=== PATIENT | female | born 1950 | race Caucasian/White ===

== ENCOUNTER 2016-05-06 06:00 | Inpatient (IN) | payer OTHER ==
[~2016-05-06] VITALS: Ht 170.2 cm; Wt 134.7 kg
[2016-05-06] VITALS (11 sets, daily range): BP systolic 113–174; BP diastolic 63–92; PULSE 75–97; TEMP 36.6–36.8; O2SAT 93–100; BMI 45.1
[~2016-05-06 06:00] MED LIST: CHOL100010 PO; CIPR-255 PO; CYAN100020 PO; HMLI SC; INSDGI SC; LOSA50TA54 PO; METF-384 PO; NAPR-1169 PO; SERT-234 PO; VERA1CAP PO
[2016-05-06] MEDS ORDERED: MoRPHine SULFATE 4 MG/ML 1 ML CARP\\VIAL IV STA (06:13)
[2016-05-06] MEDS ORDERED: ONDANSETRON INJ 2 MG/ML 2 ML VIAL IV STA (06:13)
[2016-05-06] MEDS ORDERED: SODIUM CHLORIDE 0.9% 500ML 500 ML IV STA (06:13)
[2016-05-06] MEDS ORDERED: SODIUM CHLORIDE 0.9% 1000ML 1,000 ML IV STA (06:13)
[2016-05-06] MEDS ORDERED: CEFAZOLIN SOD 1000MG/55 ML D5W IV STA (06:13)
[2016-05-06] MEDS ORDERED: DIPHTHERIA/TETANUS/PERTUSSIS 0.5 ML SYR/VIAL IM. ONE (06:15)
[2016-05-06] MEDS ORDERED: FENTANYL CITRATE INJ 50 MCG/1 ML 2 ML VIAL ONE ×4 (06:34→12:30)
[2016-05-06] MEDS ORDERED: FENTANYL CITRATE INJ 50 MCG/1 ML 2 ML VIAL IV STA (06:35)
[2016-05-06 06:38] LABS: BASO % 0.3 %; BASO ABS # 0.02 K/uL (0-0.2); COMPLETE YES; EOS % 0.5 %; HEMATOCRIT 38.5 % (37-47); IG% 0.1 %; LYMPH % 46.1 %; MEAN CELL VOLUME 84.8 fL (80-100); MEAN CORPUSCULAR HEMOGLOBIN 29.7 pg (25-34); MEAN CORPUSCULAR HGB CONC 35.1 g/dl (32-36); MEAN PLATELET VOLUME 10.4 fL (7.4-10.4); MONO % 6.1 %; NEUT % 46.9 %; PLATELET COUNT 253 K/uL (130-400); RED BLOOD COUNT 4.54 M/uL (4.2-5.4); WHITE BLOOD COUNT 7.38 K/uL (4.8-10.8)
--- NOTE | 2016-05-06 06:40 | DIAGNOSTIC IMAGING REPORT ---
ANKLE 2 VIEWS CLINICAL HISTORY: Left ankle pain. Fracture. COMPARISON: None. DISCUSSION: There is a comminuted oblique fracture of the distal fibula. There is lateral dislocation of the talus with respect to the tibia. There is fragmentation of the articular surface of the tibia with a probable fracture involving the posterior malleolus. An oblique fracture through the medial malleolus cannot be excluded. IMPRESSION: Fracture dislocation. Electronically signed by: Peewee Whalen M.D. 05/06/2016 6:38 AM Dictated Date/Time: 05/06/2016 6:36 AM
[2016-05-06 06:53] LABS: ALT/SGPT 26 U/L (12-78); BLOOD UREA NITROGEN 14 mg/dl (7-18); BUN/CREATININE RATIO 13.8 (10-20); CALCIUM 9.1 mg/dl (8.5-10.1); CARBON DIOXIDE 20 mmol/L (21-32); CHLORIDE 108 mmol/L (98-107); GLUCOSE 165 mg/dl (70-99); MAGNESIUM 1.8 mg/dl (1.8-2.4); POTASSIUM 3.8 mmol/L (3.5-5.1); SODIUM 143 mmol/L (136-145)
[2016-05-06] MEDS ORDERED: CHOL1000 PO (06:54)
[2016-05-06 06:56] LABS: ALKALINE PHOSPHATASE 48 U/L (45-117); AST/SGOT 16 U/L (15-37)
[2016-05-06] MEDS ORDERED: PREG1CAP28 PO (06:56)
[2016-05-06] MEDS ORDERED: TRAM-10 PO (06:56)
[2016-05-06] MEDS ORDERED: LORA-741 PO (06:56)
--- NOTE | 2016-05-06 06:56 | EMERGENCY ROOM VISIT NOTE ---
History Report prepared by Jessica: Raji Clay Under the Supervision of: Dr. Dayana Kim M.D. First contact with patient: 05:59 Chief Complaint: ANKLE PAIN Stated Complaint: ANKLE FRACTURE (OPEN) History of Present Illness The patient is a 65 year old female who presents to the Emergency Room with complaints of sudden left ankle pain occurring prior to arrival. She currently rates her discomfort as a 7/10 in severity. The patient states that she was coming across the yard, and she slipped, and her foot got caught under her. The patient denies any head injury or pain in any other location. The patient additionally states that she is diabetic, has hypertension, and she denies taking any aspirin or blood thinners. She states that she ate toast last night around 2100, and she did not eat anything this morning. Source of History: patient Onset: prior to arrival Position: ankle (left) Symptom Intensity: 7/10 Timing: other (sudden) Review of Systems See HPI for pertinent positives & negatives. A total of 10 systems reviewed and were otherwise negative. Past Medical & Surgical Medical Problems: (1) Hydronephrosis (2) Renal colic (3) Ureteral calculus Family History Cancer Diabetes mellitus Heart disease Hypertension Social History Smoking Status: Never Smoker Alcohol Use: none Drug Use: none Marital Status: Occupation Status: employed Current/Historical Medications Scheduled Cholecalciferol (Vitamin D3), 2,000 UNIT PO DAILY Cyanocobalamin (Vitamin B12), 1,000 MCG PO DAILY Estradiol Vaginal (Estrace), 1 APPLN 3XWK Insulin Glargine (Lantus), 20 UNITS SC QAM Insulin Lispro (Human) (Humalog Kwikpen), 5 UNITS SQ QAM Losartan Potassium (Cozaar), 50 MG PO BID Metformin Hcl (Glucophage), 1,000 MG PO BID Multiple Vitamins W/ Minerals (Hair/Skin/Nails), 1 TAB PO DAILY Naproxen (Naprosyn), 500 MG PO BID Pregabalin (Lyrica), 75 MG PO TID Sertraline (Zoloft), 150 MG PO DAILY Verapamil Hcl (Verelan), 240 MG PO BID Scheduled PRN Lorazepam (Ativan), 0.5 MG PO UD PRN for Anxiety Tramadol (Ultram), 50 MG PO Q8H PRN for Pain Allergies Coded Allergies: Terbinafine (Verified Allergy, Unknown, UNKN, 05/06/16) Physical Exam Vital Signs Date Time Temp Pulse Resp B/P Pulse Ox O2 Delivery O2 Flow Rate FiO2 05/06/16 06:52 74 05/06/16 06:04 36.4 73 18 129/64 91 Room Air Physical Exam Vital signs reviewed. General: Generally well-appearing obese female in some discomfort. HEENT: No scleral icterus, PERRLA, neck supple. Atraumatic. Cardiovascular: Regular rate and rhythm, no extra sounds. Pulmonary: Faint scattered wheezes bilaterally, normal work of breathing. Abdomen: Soft, nontender, nondistended, positive bowel sounds. Musculoskeletal: Laceration over the medial aspect of the distal left ankle about 8cm in length with bone protruding. Foot is deviated laterally. Bleeding is controlled. Pulses and sensation are intact distally, and she can wiggle her toes. No peripheral edema. Neurologic: Patient awake alert and oriented x 3, full strength in all 4 extremities. Cranial nerves 2 through 12 grossly intact. Skin: Warm, dry, no rash Medical Decision & Procedures ER Provider Diagnostic Interpretation: X-ray results as stated below per interpretation by me and the radiologist: LEFT TIBIA/FIBULA 2 VIEWS ROUTINE CLINICAL HISTORY: L ankle fracture COMPARISON: Ankle study dated 05/06/2016 DISCUSSION: 2 views left tibia and fibula are provided for interpretation. These do not include the ankle. The patient's distal fibular fracture is partially visualized. The tibiotalar dislocation is not included on the study. No proximal fractures of the tibia or fibula are visualized. IMPRESSION: Partial visualization of the patient's distal fibular fracture. No fractures the proximal tibia or fibula are visualized Electronically signed by: Peewee Whalen M.D. 05/06/2016 6:57 AM Dictated Date/Time: 05/06/2016 6:56 AM CHEST ONE VIEW PORTABLE CLINICAL HISTORY: Preoperative chest COMPARISON STUDY: 03/20/2015 FINDINGS: The heart is within normal limits in size. There is no focal pulmonary consolidation. There are no pleural effusions. There is no overt failure.[ IMPRESSION: AP portable study. No acute findings. Electronically signed by: Peewee Whalen M.D. 05/06/2016 6:52 AM Dictated Date/Time: 05/06/2016 6:52 AM ANKLE 2 VIEWS CLINICAL HISTORY: Left ankle pain. Fracture. COMPARISON: None. DISCUSSION: There is a comminuted oblique fracture of the distal fibula. There is lateral dislocation of the talus with respect to the tibia. There is fragmentation of the articular surface of the tibia with a probable fracture involving the posterior malleolus. An oblique fracture through the medial malleolus cannot be excluded. IMPRESSION: Fracture dislocation. Electronically signed by: Peewee Whalen M.D. 05/06/2016 6:38 AM Dictated Date/Time: 05/06/2016 6:36 AM Laboratory Results 05/06/16 05:20 Red Blood Count 4.54, Mean Corpuscular Volume 84.8, Mean Corpuscular Hemoglobin 29.7, Mean Corpuscular Hemoglobin Concent 35.1, Mean Platelet Volume 10.4, Neutrophils (%) (Auto) 46.9, Lymphocytes (%) (Auto) 46.1, Monocytes (%) (Auto) 6.1, Eosinophils (%) (Auto) 0.5, Basophils (%) (Auto) 0.3, Neutrophils # (Auto) 3.46, Lymphocytes # (Auto) 3.40, Monocytes # (Auto) 0.45, Eosinophils # (Auto) 0.04, Basophils # (Auto) 0.02 05/06/16 05:20 Test 05/06/16 05:20 05/06/16 06:53 White Blood Count 7.38 K/uL (4.8-10.8) Red Blood Count 4.54 M/uL (4.2-5.4) Hemoglobin 13.5 g/dL (12.0-16.0) Hematocrit 38.5 % (37-47) Mean Corpuscular Volume 84.8 fL (80-100) Mean Corpuscular Hemoglobin 29.7 pg (25-34) Mean Corpuscular Hemoglobin Concent 35.1 g/dl (32-36) Platelet Count 253 K/uL (130-400) Mean Platelet Volume 10.4 fL (7.4-10.4) Neutrophils (%) (Auto) 46.9 % Lymphocytes (%) (Auto) 46.1 % Monocytes (%) (Auto) 6.1 % Eosinophils (%) (Auto) 0.5 % Basophils (%) (Auto) 0.3 % Neutrophils # (Auto) 3.46 K/uL (1.4-6.5) Lymphocytes # (Auto) 3.40 K/uL (1.2-3.4) Monocytes # (Auto) 0.45 K/uL (0.11-0.59) Eosinophils # (Auto) 0.04 K/uL (0-0.5) Basophils # (Auto) 0.02 K/uL (0-0.2) RDW Standard Deviation 43.0 fL (36.4-46.3) RDW Coefficient of Variation 14.0 % (11.5-14.5) Immature Granulocyte % (Auto) 0.1 % Immature Granulocyte # (Auto) 0.01 K/uL (0.00-0.02) Anion Gap 15.0 mmol/L (3-11) Est Creatinine Clear Calc Drug Dose 80.0 ml/min Estimated GFR () 69.0 Estimated GFR (Non- 59.5 BUN/Creatinine Ratio 13.8 (10-20) Calcium Level 9.1 mg/dl (8.5-10.1) Magnesium Level 1.8 mg/dl (1.8-2.4) Total Bilirubin 0.5 mg/dl (0.2-1) Direct Bilirubin < 0.1 mg/dl (0-0.2) Aspartate Amino Transf (AST/SGOT) 16 U/L (15-37) Alanine Aminotransferase (ALT/SGPT) 26 U/L (12-78) Alkaline Phosphatase 48 U/L (45-117) Total Protein 6.9 gm/dl (6.4-8.2) Albumin 3.9 gm/dl (3.4-5.0) Bedside Glucose 202 mg/dl (70-90) Laboratory results per my review. Medications Administered Medications (Trade) Dose Ordered Sig/Marni Route Start Time Stop Time Status Last Admin Dose Admin Morphine Sulfate 4 mg 4 mg NOW STAT IV 05/06/16 06:13 05/06/16 06:17 DC 05/06/16 06:13 4 MG Sodium Chloride (Nss 500ml) 500 ml @ 999 mls/hr Q31M STAT IV 05/06/16 06:13 05/06/16 06:43 DC 05/06/16 06:28 999 MLS/HR Cefazolin Sodium (Ancef 1000mg/55 ml D5W) 2,000 mg NOW STAT IV 05/06/16 06:13 05/06/16 06:17 DC 05/06/16 06:24 2,000 MG Ondansetron HCl (Zofran Inj) 4 mg NOW STAT IV 05/06/16 06:13 05/06/16 06:18 DC 05/06/16 06:23 4 MG Diphtheria/ Pertussis/Tetanus Vacc (Adacel Inj) 0.5 ml ONCE ONCE IM. 05/06/16 06:15 05/06/16 06:18 DC 05/06/16 06:25 0.5 ML Fentanyl Citrate (Fentanyl Inj) 50 mcg NOW STAT IV 05/06/16 06:35 05/06/16 06:36 DC 05/06/16 06:41 50 MCG Procedure Procedural Sedation Indication left ankle fracture/dislocation, open Total time: 4923-8245, 16 minutes minutes. Written consent was obtained after the risks and benefits were explained to the patient, including, but not limited to aspiration, allergic reaction, breathing difficulties, cardiac complications, vomiting, pain, event recall, bleeding, and /or infection. Pre-sedation examination and paperwork completed. The patient was on 100% oxygen via NRB prior to the procedure. Continuous end tidal CO2 monitoring, pulse oximetry, and cardiac monitoring were utilized. Suction, airway equipment, medications, respiratory equipment, and appropriate personnel were prepared prior to the initiation of the procedure. A time out was taken. Sedation was achieved utilizing a total of 100 mg of propofol. After I observed the patient had reached the appropriate level of sedation the main procedure was performed without significant complication. The patient did temporarily desaturate but easily recovered with supplemental oxygen. Sedation was discontinued and the monitoring continued. The patient recovered quickly from the effects of the medication and tolerated the procedure well. ECG Indication: other (preop) Rate (beats per minute): 75 Rhythm: normal sinus Findings: T-wave inversion (Inferior), no ectopy Comparison ECG Date: T wave inversion in inferior leads is new when compared to 07/15/15 ED Course 0559: Past medical records reviewed. The patient was evaluated in room B11. A complete history and physical examination was performed. 0613: Zofran Inj 4mg IV, Ancef 1000mg/55 ml D5W 2000mg IV, Sodium Chloride 1000 ml @ 125 mls/hr IV, Sodium Chloride 500 ml @ 999 mls/hr IV, Morphine Sulfate 3mg IV 0615: Adacel Inj .5ml IM 0635: Fentanyl Inj 50 mcg IV 0652: I discussed the patient's case with Dr. Hairston. He is going to evaluate the patient for further treatment Medical Decision Differential diagnosis: fracture, dislocation, neurovascular compromise, compartment syndrome, soft tissue injury, as well as others were entertained. This patient was evaluated and appeared to be in significant discomfort. IV access was obtained by EMS. The patient was medicated with morphine in route. IV fluids were initiated. The patient was medicated with additional IV morphine. X-rays were obtained and reveal an open fracture/dislocation of the left ankle. Patient was medicated with 50 g of fentanyl IV and an attempt at reduction of the ankle was unsuccessful. Xeroform gauze and saline soaked 4 x 4 's were applied over the open wound. A splint was applied. The patient was medicated with 2 g of IV Ancef. Adacel 0.5 mL was administered IM. Orthopedics , Dr. Allen, was consulted. He has requested a medicine evaluation and Dr Brown was notified. Sam Cunningham PA-C evaluated the patient and requested conscious sedation for another attempt at reduction. Please see my procedure note above. The patient will be taken to the OR later today for definitive management. She is aware of the plan and agrees. Consults Time Called: 629 Consulting Physician: Dr. Hairston Returned Call: [phone] I discussed the patient's case with Dr. Hairston. He is going to evaluate the patient for further treatment Impression Primary Impression: Open fracture dislocation of ankle Scribe Attestation The scribe's documentation has been prepared under my direction and personally reviewed by me in its entirety. I confirm that the note above accurately reflects all work, treatment, procedures, and medical decision making performed by me. Departure Information Dispostion Being Evaluated By Hospitalist Nando Chaparro III, CRNP (PCP)
--- NOTE | 2016-05-06 06:59 | DIAGNOSTIC IMAGING REPORT ---
LEFT TIBIA/FIBULA 2 VIEWS ROUTINE CLINICAL HISTORY: L ankle fracture COMPARISON: Ankle study dated 05/06/2016 DISCUSSION: 2 views left tibia and fibula are provided for interpretation. These do not include the ankle. The patient's distal fibular fracture is partially visualized. The tibiotalar dislocation is not included on the study. No proximal fractures of the tibia or fibula are visualized. IMPRESSION: Partial visualization of the patient's distal fibular fracture. No fractures the proximal tibia or fibula are visualized Electronically signed by: Peewee Whalen M.D. 05/06/2016 6:57 AM Dictated Date/Time: 05/06/2016 6:56 AM
[2016-05-06] MEDS ORDERED: INSDGI SC (07:01)
[2016-05-06] MEDS ORDERED: INSU100I2 SQ (07:01)
[2016-05-06] MEDS ORDERED: MULT-580 PO (07:03)
[2016-05-06] MEDS ORDERED: ESTCR (07:03)
[2016-05-06] MEDS ORDERED: PROPOFOL IV EMULSION 10 MG/ML 20 ML VIAL IV STA (07:44)
[2016-05-06] MEDS ORDERED: PROPOFOL IV EMULSION 10 MG/ML 20 ML VIAL IV ONE ×2 (07:45→08:38)
[2016-05-06 07:54] LABS: PARTIAL THROMBOPLASTIN RATIO 0.9; PROTHROMBIN TIME (PATIENT) 10.7 SECONDS (9.0-12.0)
--- NOTE | 2016-05-06 08:20 | DIAGNOSTIC IMAGING REPORT ---
LEFT ANKLE 3 VIEWS HISTORY: Ankle fracture. ankle reduction COMPARISON: Left ankle 05/06/2016. FINDINGS: Overlying splint material obscures fine bony detail. The patient is status post reduction of the left ankle fracture/dislocation. Mildly displaced comminuted distal left fibular fracture is again noted. This demonstrates up to 3 mm of posterior displacement and 3 mm of lateral displacement. Slight widening at the ankle mortise. Posterior malleolus fracture is slightly distracted up to 3 mm. IMPRESSION: Significant improvement in alignment status post reduction of the left ankle fracture/dislocation as described above. There remains mild widening at the ankle mortise. Electronically signed by: Delonte Bean M.D. 05/06/2016 8:18 AM Dictated Date/Time: 05/06/2016 8:16 AM
[2016-05-06] MEDS: SODIUM CHLORIDE 0.9% 1000ML 1,000 ML IV SCH ×2 (08:28→21:28)
[2016-05-06] MEDS ORDERED: ONDANSETRON INJ 2 MG/ML 2 ML VIAL ONE (08:38)
[2016-05-06] MEDS ORDERED: DEXAMETHASONE SOD INJ 4 MG/ML VIAL ONE (08:38)
[2016-05-06] MEDS ORDERED: MIDAZOLAM HCL 1 MG/ML 2ML VIAL ONE ×2 (08:38)
--- NOTE | 2016-05-06 08:58 | History & Physical Bridge Note ---
H&P Re-Evaluation Bridge Note: I have examined the patient, reviewed the History & Physical and in the interval since the performance of the History & Physical I have noted the following changes of clinical significance: No changes noted
--- NOTE | 2016-05-06 09:04 | HISTORY & PHYSICAL EXAMINATION ---
DATE OF ADMISSION: 05/06/2016 REASON FOR ADMISSION: Left open ankle fracture. HISTORY OF PRESENT ILLNESS: The patient is a 65-year-old white female who states that she was walking across her yard earlier this morning to go watch her grandchildren as she normally does daily. She said she avoided the sidewalk because she felt they might be slippery however she lost her balance and slipped in the wet grass and fell onto her left side, actually putting a lot of her weight onto her left ankle. She had immediate pain and deformity and some bleeding noted of her left ankle. She was unable to ambulate and she was brought to [facility] ED. She was seen by the staff. X-rays taken and she obviously had an open fracture of her left ankle at that time. Several attempts were made to give her some pain medication and reduce the ankle by the ER staff which did not occur. It was felt that she would need some conscious sedation which was then provided by the ER physician and the dislocation was then closed reduced. The wound itself was covered with Xeroform and 4 x 4 gauze and a posterior splint with a stirrup was applied to the ankle. She is now being admitted for further orthopedic care. PAST MEDICAL HISTORY: Hypertension, diabetes mellitus. Denies tuberculosis, hepatitis, COPD, rheumatic fever. PAST SURGICAL HISTORY: She has had a closed reduction of her left elbow which was dislocated up in [place]. Otherwise, no other surgeries that she remembers. FAMILY HISTORY: Father and mother both history of CAD diagnosed later in life. SOCIAL HISTORY: The patient is a nonsmoker who does not drink alcohol. She smoked a very long time ago and not for very long. MEDICATIONS: Vitamin D3 2000 units p.o. daily, vitamin B12 1000 mcg p.o. daily, Estrace 1 application 3 times a week, Glargine insulin 20 units subQ in the a.m., lispro insulin 5 units subQ a.m., lorazepam, Ativan 0.5 mg p.o. as directed p.r.n., losartan 50 mg p.o. b.i.d., metformin 1000 mg p.o. b.i.d., multivitamin 1 tab p.o. daily, naproxen 500 mg p.o. b.i.d., Lyrica 75 mg p.o. t.i.d., Zoloft 150 mg p.o. daily, tramadol 50 mg p.o. q. 8 hours p.r.n., verapamil 240 mg p.o. b.i.d. ALLERGIES: TERBINAFINE. REVIEW OF SYSTEMS: The patient denies any history of recent fevers, chills, night sweats, unexplained weight loss or weight gain. No flu or cold-like symptoms. No increased cough or sputum production. No chills or rigors. No chest pain, chest pressure, irregular heartbeat. No shortness of breath on exertion. No hemoptysis. No abdominal pain. No unusual nausea, vomiting, diarrhea. No melena or hematochezia, hematemesis. No hematuria, pyuria or dysuria. Positive history of renal calculi in the past. Denies any gynecological problems in the past as well, although history of being diagnosed with an ovarian cyst. No history of CVA, TIA, seizure disorder. PHYSICAL EXAMINATION: VITAL SIGNS: This morning's vitals at 6:00 were temperature 36.4, pulse 73, respirations 18, BP 129/64, pulse ox 91. GENERAL: The patient is lying in her gurney. She is awake and alert and oriented to person and place. She is in no acute distress, pleasant, cooperative. A splint that has been applied to her left lower extremity and there is a fair amount of bleeding that has been noted on the pillow case that it is underneath her left leg. HEAD, EYES, EARS, NOSE, AND THROAT: Head is normocephalic, atraumatic. There is no scleral icterus or injection. Nasal airway is patent. Oral mucosa is pink and moist. NECK: Soft. HEART: Sinus rhythm without murmurs or gallops. LUNGS: Clear to auscultation. ABDOMEN: Soft, mildly obese and nontender. Bowel sounds are present x4. GENITALIA AND RECTAL: Not performed at this time. EXTREMITIES: Upper extremity exam bilateral shoulders, elbows and wrists are within normal limits and range of motion and nontender on palpation. She has no tenderness on palpation of her neck and has good range of motion with flexion, extension and rotation. She describes a little bit of low back pain at this point of which she attributes to laying so long in the Emergency Room which she has problems with whenever she does lie too long, but does not overtly have back problems normally. She is nontender on palpation at this point in time. On examination of her left lower extremity a splint that had been applied and again she has some bleeding noted from the dressing from the splint that she had on. Once the splint has been removed, it is noted that she has a fracture dislocation that is open of the left ankle, open on the medial aspect with the good portion of the tibia protruding through. There is some stripping of the periosteum on the distal edge of the bone but otherwise has good soft tissue coverage. The open area is approximately 4 cm in length and is not overtly bleeding at this time. She has good sensation in her toes at this time and is able to wiggle her toes of the left foot. Right lower extremity is essentially within normal limits. She is nontender over the right hip, knee and ankle and has good sensation and range of motion. ASSESSMENT: Grade 2 open fracture of the left ankle. PLAN: The patient will need conscious sedation reduction and then brought to the operating room this morning at some point for ORIF and irrigation and debridement. Procedures in the Emergency Room Dr. Kim is present and has provided the patient with conscious sedation. Once appropriate sedation was achieved, I held the ankle and foot in both hands and with longitudinal traction was able to successfully reduce the fracture dislocation of the left ankle. The toes continued to remain pink and warm and had good capillary refill and once the patient was again awake. She has good sensation. At that point in time she had no overt bleeding noted and more Xeroform was applied to the open wound and 2 packs of 4 x 4 gauze were placed over the wound and then a U2 splint was applied to the left ankle successfully. Post-reduction films were taken and noted that the fracture dislocation was now reduced. The patient awoke from conscious sedation and had no complaints and is now awaiting admission. NATALYA
--- NOTE | 2016-05-06 09:13 | Medical Consult ---
Consultation Date of Consultation: May 06, 2016. Attending Physician: Sven Allen M.D. Reason for Consultation: Pre-operative evaluation History of Present Illness This is a 65 y/o female with a history of DM II, neuralgia, HTN, depression and anxiety who presented to the ED on 05/06 with ankle pain following a mechanical fall. The patient was walking in her yard early this morning when she slipped on wet grass and fell on her left ankle. The patient denies any lightheadedness , dizziness, or loss of consciousness. The patient immediately felt severe 10/ 10 sharp pain after the fall. The intense pain made her feel nauseous as well, but she denies any vomiting. The patient was unable to get herself back up. She denies any numbness or tingling in the LLE. The patient received morphine 10 mg IV while en route to the ED. She received a total of 4 mg morphine and 50 mcg fentanyl while in the ED, which did help improve the pain, and she was also given Zofran, which resolved the nausea. X-rays revealed a dislocated, comminuted oblique fracture of the distal fibula. Sam Michael PA-C did reduce and splint the ankle while the patient still in the ED. The patient currently rates her a pain a 9/10 post reduction and states that it is aching in character and does not radiate. The patient denies fevers, chills, sweats, chest pain, palpitations, claudication, cough, wheezing, shortness of breath, vomiting, abdominal pain, dysuria, hematuria, urinary retention, paralysis, numbness and tingling. Past Medical/Surgical History Medical Problems: (1) Open fracture dislocation of ankle Status: Acute Diabetes mellitus type 2 Neuralgia HTN Depression with anxiety Family History Cancer (gastric) Diabetes mellitus Heart disease Hypertension Myocardial infarction Social History Smoking Status: Former Smoker Smokeless Tobacco Use: No Alcohol Use: none Drug Use: none Marital Status: Housing Status: lives alone Occupation Status: retired Allergies Coded Allergies: Terbinafine (Verified Allergy, Unknown, UNKN, 05/06/16) Current Inpatient Medications Current Inpatient Medications Medications (Trade) Dose Ordered Sig/Marni Route Start Time Stop Time Status Last Admin Dose Admin Sodium Chloride (Nss 1000ml) 1,000 ml @ 125 mls/hr Q8H STAT IV 05/06/16 06:13 05/06/16 14:12 05/06/16 06:13 125 MLS/HR Review of Systems See HPI for pertinent positives and negatives. All other systems reviewed and negative. Physical Exam Date Time Temp Pulse Resp B/P Pulse Ox O2 Delivery O2 Flow Rate FiO2 05/06/16 08:07 36.8 79 20 158/92 95 Room Air 05/06/16 07:52 78 16 113/90 97 Room Air 4.0 05/06/16 07:45 36.6 77 20 174/80 98 Nasal Cannula 4.0 05/06/16 06:52 74 05/06/16 06:04 36.4 73 18 129/64 91 Room Air General Appearance: WD/WN, + mild distress, + obese (morbidly obese) Head: normocephalic, atraumatic Eyes: normal inspection, PERRL, EOMI ENT: normal ENT inspection, hearing grossly normal, pharynx normal Neck: supple, no JVD, trachea midline Respiratory/Chest: lungs clear, normal breath sounds, no respiratory distress Cardiovascular: regular rate, rhythm, no gallop, + systolic murmur Abdomen/GI: normal bowel sounds, non tender, soft Extremities/Musculoskelatal: normal capillary refill, + pertinent finding ( distal tibia protruding out of skin, lateral displacement of talus in respect to tibia prior to reduction and splinting. Bleeding controlled.) Neurologic/Psych: alert, normal mood/affect, oriented x 3, + pertinent finding (sensation intact. Pt able to wiggle her left toes) Skin: normal color, warm/dry, no rash Laboratory Results Last 24 Hours Test 05/06/16 05:20 05/06/16 06:53 White Blood Count 7.38 K/uL Red Blood Count 4.54 M/uL Hemoglobin 13.5 g/dL Hematocrit 38.5 % Mean Corpuscular Volume 84.8 fL Mean Corpuscular Hemoglobin 29.7 pg Mean Corpuscular Hemoglobin Concent 35.1 g/dl Platelet Count 253 K/uL Mean Platelet Volume 10.4 fL Neutrophils (%) (Auto) 46.9 % Lymphocytes (%) (Auto) 46.1 % Monocytes (%) (Auto) 6.1 % Eosinophils (%) (Auto) 0.5 % Basophils (%) (Auto) 0.3 % Neutrophils # (Auto) 3.46 K/uL Lymphocytes # (Auto) 3.40 K/uL Monocytes # (Auto) 0.45 K/uL Eosinophils # (Auto) 0.04 K/uL Basophils # (Auto) 0.02 K/uL RDW Standard Deviation 43.0 fL RDW Coefficient of Variation 14.0 % Immature Granulocyte % (Auto) 0.1 % Immature Granulocyte # (Auto) 0.01 K/uL Prothrombin Time 10.7 SECONDS Prothromb Time International Ratio 1.0 Activated Partial Thromboplast Time 23.8 SECONDS Partial Thromboplastin Ratio 0.9 Sodium Level 143 mmol/L Potassium Level 3.8 mmol/L Chloride Level 108 mmol/L Carbon Dioxide Level 20 mmol/L Anion Gap 15.0 mmol/L Blood Urea Nitrogen 14 mg/dl Creatinine 1.00 mg/dl Est Creatinine Clear Calc Drug Dose 80.0 ml/min Estimated GFR () 69.0 Estimated GFR (Non- 59.5 BUN/Creatinine Ratio 13.8 Random Glucose 165 mg/dl Calcium Level 9.1 mg/dl Magnesium Level 1.8 mg/dl Total Bilirubin 0.5 mg/dl Direct Bilirubin < 0.1 mg/dl Aspartate Amino Transf (AST/SGOT) 16 U/L Alanine Aminotransferase (ALT/SGPT) 26 U/L Alkaline Phosphatase 48 U/L Total Protein 6.9 gm/dl Albumin 3.9 gm/dl Bedside Glucose 202 mg/dl Assessment & Plan 65 y/o female with a history of DM II, neuralgia, HTN, depression and anxiety who presented to the ED on 05/06 with ankle pain following a mechanical fall. X- rays reveal comminuted oblique fracture of distal fibula with lateral dislocation of talus with respect to tibia. Distal tibia protruding out of skin. Bleeding controlled. Pt afebrile, VSS. Ankle reduced and splinted in ED , post reduction films show significantly improved alignment of fracture. Patient admitted to med/surg by orthopedics for surgical correction later this morning. Medicine consulted for pre-operative evaluation. -Pain management, DVT prophylaxis, and PT/OT as per primary team -Patient is an acceptable risk for surgery -CXR shows no acute disease -EKG 75 bpm, NSR Diabetes mellitus type 2--last HgbA1c checked 01/30/16 was 6.3. Pt takes 20 units Lantus qam, will reduce to 80% home dose while inpatient due to decreased PO intake prior to arrival and current NPO status -Hold metformin -Lantus 16 units SC qam -Insulin sliding scale -Check BSGs q ac and qhs -Recheck HgbA1c Neuralgia -Continue Lyrica 75 mg PO TID HTN--stable -Hold losartan post-operatively, may resume when renal function is checked again and stable -Continue verapamil 240 mg PO BID -Cover with hydralazine 10 mg IV q6h prn SBP >180 post operatively Depression with anxiety -Continue sertraline 100 mg PO qd Code Status -Level I, FULL RESUSCITATION STATUS Thank you for this consultation. We will continue to follow. Reviewed: Pt Seen/Exam by Me History Pt is having pain post-op and waiting on medication for this. She is hungry having not eaten since last night. No SOB, chest pain, n/v. Agree with HPI/ROS as noted. General Appearance: no apparent distress, obese Respiratory: normal breath sounds, no respiratory distress Cardiovascular: normal peripheral pulses, regular rate, rhythm Gastrointestinal: non tender, soft Extremities: non-tender, no pedal edema Neurologic/Psychiatric: alert, oriented x 3 Skin Characteristics: normal color, warm/dry Assessment/Plan Agree with plan as outlined above Pt is s/p OR earlier today for an ankle fx 2/2 mechanical fall
[2016-05-06] MEDS ORDERED: DEXTROSE 50% 50 ML SYR IV PRN (09:15)
[2016-05-06] MEDS ORDERED: GLUCOSE 40% GEL 15 GM TUBE PO PRN (09:15)
[2016-05-06] MEDS ORDERED: GLUCAGON FOR INJ 1 MG VIAL SQ PRN (09:15)
[2016-05-06] MEDS ORDERED: HydrALAZINE HCL 20 MG/ML VIAL IV. PRN (09:15)
[2016-05-06] MEDS ORDERED: GLUCOSE 10 TABS/TUBE PO PRN (09:15)
[2016-05-06] MEDS ORDERED: ONDANSETRON INJ 2 MG/ML 2 ML VIAL IV PRN (09:30)
[2016-05-06] MEDS ORDERED: EpHEDrine SULFATE INJ 50 MG/ML AMP IV PRN (09:30)
[2016-05-06] MEDS ORDERED: MoRPHine SULFATE 10 MG/ML CARP/VIAL IV PRN (09:30)
[2016-05-06] MEDS ORDERED: FENTANYL CITRATE INJ 50 MCG/1 ML 2 ML VIAL IV PRN (09:30)
[2016-05-06] MEDS ORDERED: ATROPINE SULFATE 0.1 MG/ML 5ML SYR IV PRN (09:30)
[2016-05-06] MEDS ORDERED: CEFAZOLIN IV 2,000 MG/60 ML D5W IV ONE (09:37)
[2016-05-06] MEDS ORDERED: INSULIN ASPART 100 UNITS/ML 3 ML PEN SC SCH (11:00)
[2016-05-06 11:02] LABS: ESTIMATED AVERAGE GLUCOSE 146 mg/dl; HA1C FLAG Normal (Normal)
[2016-05-06] MEDS ORDERED: BETADINE 5% TOP ONE (12:13)
[2016-05-06] MEDS ORDERED: [UNRECOGNIZED DRUG - OTHER] TOP ONE (12:13)
[2016-05-06] MEDS ORDERED: BACITRACIN 50,000 UNITS IR ONE (12:15)
--- NOTE | 2016-05-06 12:35 | [facility] Operative Report ---
Operative Report Operative Date May 06, 2016. Pre-Operative Diagnosis Grade 2-3 open fracture dilocation lateral and posterior malleolus of left ankle Post-Operative Diagnosis same Procedure(s) Performed orif left fibula irrigation and debridement open dislocation with repair wound over drain repair deltoid ligament and posterior tibial tendon retinaculum Surgeon Dr. Sven Allen Director Of Supply Chain Surgeon(s) Alfredo Sandhu PA-C Estimated Blood Loss 15ml Findings ABOVE Specimens none per surgeon Dr. Sven Allen Drains one paul Anesthesia general Complication(s) None Disposition Recovery Room / PACU Indications open dislocation unstable fracture I attest to the content of the Intraoperative Record and any orders documented therein. Any exceptions are noted below.
[2016-05-06] MEDS ORDERED: BISACODYL 10 MG SUPP PR PRN (13:15)
[2016-05-06] MEDS ORDERED: ESTRACE VAG CREAM 0.01% 42.5 GM PV SCH (13:15)
[2016-05-06] MEDS ORDERED: ZOLPIDEM TARTRATE 5 MG TAB PO PRN (13:15)
[2016-05-06] MEDS ORDERED: MoRPHine SULFATE 2 MG/ML CARP IV PRN (13:15)
[2016-05-06] MEDS ORDERED: MAGNESIUM HYDROXIDE SUSP 30 ML UDC PO PRN (13:15)
[2016-05-06] MEDS ORDERED: LORAZEPAM 0.5 MG TAB PO PRN (13:15)
[2016-05-06] MEDS ORDERED: SOD PHOSPHATE/SOD BIPHOSPHATE ENEMA 132 ML BTL PR PRN (13:15)
--- NOTE | 2016-05-06 13:21 | Anesthesiology Progress Note ---
Anesthesia Post Op Note Date & Time May 06, 2016 at 13:20 Vital Signs Vital Signs Past 12 Hours Date Time Temp Pulse Resp B/P Pulse Ox O2 Delivery O2 Flow Rate FiO2 05/06/16 08:32 68 20 161/82 97 05/06/16 08:07 36.8 79 20 158/92 95 Room Air 05/06/16 07:52 78 16 113/90 97 Room Air 4.0 05/06/16 07:52 78 16 113/90 99 Nasal Cannula 4.0 05/06/16 07:45 36.6 77 20 174/80 98 Nasal Cannula 4.0 05/06/16 06:52 74 05/06/16 06:04 36.4 73 18 129/64 91 Room Air Notes Mental Status: alert / awake / arousable, participated in evaluation Pt Amnestic to Procedure: Yes Nausea / Vomiting: adequately controlled Pain: adequately controlled Airway Patency, RR, SpO2: stable & adequate BP & HR: stable & adequate Hydration State: stable & adequate Anesthetic Complications: no major complications apparent
--- NOTE | 2016-05-06 14:47 | DIAGNOSTIC IMAGING REPORT ---
Left ankle 2 views CLINICAL HISTORY: Left ankle fracture. Reduction and internal fixation. COMPARISON STUDY: Left ankle 05/06/2016. FINDINGS: Total fluoroscopy time was 17 seconds. 3 fluoroscopic spot images submitted. Lateral cortical plate transfixed with screws bridging the distal fibular fracture. The hardware appears intact. The alignment is near-anatomic. IMPRESSION: Fluoroscopy provided for open reduction and internal fixation of a left ankle fracture. Electronically signed by: Delonte Bean M.D. 05/06/2016 2:45 PM Dictated Date/Time: 05/06/2016 2:44 PM
[2016-05-06] MEDS: MoRPHine SULFATE 4 MG/ML 1 ML CARP\\VIAL IV PRN ×3 (15:10→19:57)
[2016-05-06] MEDS: PREGABALIN 75 MG CAP PO SCH ×2 (15:10→21:23)
[2016-05-06] MEDS: POTASSIUM CHLORIDE INJ 10 MEQ in SODIUM CHLORIDE 0.9% 1000ML 1,000 ML IV SCH (15:36)
[2016-05-06] MEDS: CEFAZOLIN IV 2,000 MG in DEXTROSE 5% 50ML 50 ML IV SCH ×2 (15:37→21:24)
[2016-05-06] MEDS: ACETAMINOPHEN 500 MG TAB PO SCH ×2 (15:42→21:25)
[2016-05-06] MEDS: OXYCODONE HCL IR 5 MG TAB (IMMEDIATE RELEASE) PO PRN ×2 (15:51→19:52)
[2016-05-06] MEDS: INSULIN ASPART 100 UNITS/ML 3 ML PEN SC SCH ×2 (18:37→21:00)
[2016-05-06] MEDS: VERAPAMIL HCL 240 MG TABCR PO SCH (21:23)
[2016-05-06] MEDS: OXYCODONE HCL 10 MG TABCR (OXYCONTIN) PO SCH (21:23)
[2016-05-06] MEDS: ASPIRIN 81 MG ECTAB PO SCH (21:24)
[2016-05-06] MEDS: LOSARTAN POTASSIUM 50 MG TAB PO SCH (21:24)
[2016-05-07] VITALS (8 sets, daily range): BP systolic 116–146; BP diastolic 68–80; PULSE 79–120; TEMP 36.6–37.2; O2SAT 84–97
[2016-05-07] MEDS: MoRPHine SULFATE 4 MG/ML 1 ML CARP\\VIAL IV PRN ×4 (00:34→19:30)
--- NOTE | 2016-05-07 01:28 | OPERATIVE REPORT ---
DATE OF OPERATION: 05/06/2016 INDICATION FOR PROCEDURE: The patient is a 65-year-old female who slipped on the ice and sustained a fracture dislocation of her left ankle. She had a large laceration over the medial ankle transversely at the time of her presentation. The tibia was exposed via the open injury. She had a comminuted fibula fracture, clearly a dislocation laterally, and also had posterior malleolus fracture, but no clear medial malleolus fracture. In ER, closed reduction was performed after the wound was irrigated, which demonstrated her medial malleolus to be intact and a small relatively extraarticular posterior malleolus fracture and a very comminuted fibular fracture. PREOPERATIVE DIAGNOSIS: Left ankle fracture and dislocation with a comminuted fibula fracture and extraarticular posterior malleolus fracture and an open dislocation medially. POSTOPERATIVE DIAGNOSIS: Same including a deltoid ligament disruption and posterior tibial retinacular disruption with intact posterior tibial tendon, with comminuted fibular fracture and smaller extraarticular posterior malleolus fracture. PROCEDURE: Open reduction and internal fixation of the fibula fracture with lag screw and locking plate fixation with irrigation and debridement of medial open dislocation of the ankle joint with subsequent repair of the deltoid ligament and posterior tibial tendon and retinaculum, closure of the medial open laceration over a Samreen drain. SURGEON: Dr. Allen. VP PRODUCT MANAGEMENT: Alfredo Sandhu PA-C. ANESTHESIA: General. OPERATIVE PROCEDURE: The patient was taken to the operating room, anesthetized under general anesthetic. Pneumatic tourniquet was placed about her obese upper thigh. A sandbag was placed under her hip to keep her leg rotated in neutral. Her left lower extremity was then scrubbed with Betadine scrub and paint prep. Leg was then elevated, exsanguinated with Esmarch bandage, pneumatic tourniquet was raised to 350 mmHg. Attention was first taken to the medial wound which was measured at 8.5 cm laceration. This was irrigated copiously. With some eversion of the ankle, the tibia was easily translated into the open wound and one could see the medial malleolus clearly intact and solid with the tibial plafond. There was a little scuffing of the joint surface but no major chondral lesions. Deltoid was clearly ruptured at the medial capsule and the tear extended posteriorly into the posterior tibial tendon and retinaculum, but posterior tibial tendon was intact, saphenous vein was intact. The joint surface, ankle joint, medial tibia, deltoid ligament, subcutaneous tissue and skin were all irrigated copiously. We used a total of 5 liters of antibiotic solution with bacitracin. The wound was contaminated but clean in appearance. Then, attention was taken to the fibula fixation. A longitudinal incision was made over the fibular fracture. Skin was incised sharply. The subcutaneous tissues were reflected off the fibula and the fracture was comminuted with a fragmented butterfly fragment posterior, the butterfly fragment was in 2 fragments. There was a distal lateral malleolus fragment spiral fracture and then the shaft proximally. After irrigation of this again with antibiotic solution and bacitracin, we freed up some of the periosteum off the fracture site to fully visualize the spike of the fractures and to reduce these anatomically. I used several bone holding clamps to integrate the butterfly fragments into the posterior fibula, gained appropriate lengths and placed the spiral fracture together with clamps and then verified anatomic reduction and the ankle to be out to length and the mortise to be lined up satisfactorily on fluoroscopy and then went ahead and lagged the long spiral shaft fracture to the distal lateral malleolus with a 3.5 Synthes cortical screw from anterior to posterior, superior to inferior. After that was lagged, then we went ahead and lagged the shaft to the butterfly fragment posteriorly with a second screw. I then placed a long 7-hole Synthes locking plate and this was contoured to match the anatomy of the fibula and that was placed at the appropriate position and initially lagged with a cortical screw to the shaft and then multiple locking screws were placed into the lateral malleolus and locking screws placed proximally with anatomic fixation of the fibula with bringing this out to length anatomically and the mortise reduced anatomically. The x-rays were taken in AP and lateral views and the posterior malleolus fracture was felt to be extraarticular for the most part and we will treat this with splinting and casting. The medial wound was then irrigated and then I repaired the deltoid ligament with interrupted [id number] #1 Vicryl sutures and repaired the retinaculum was similar interrupted #1 Vicryl sutures. Then, the Samreen drain was placed into the medial wound and then interrupted 4-0 nylon vertical mattress suture was used to close the medial wound. 2-0 Vicryl was used to close deep fascia and subcutaneous tissues laterally and the skin was closed with interrupted 3-0 nylon vertical mattress sutures of nylon. Then, sterile dressings were applied and a sterile Webril and posterior and sugar tong splint was placed to keep the ankle in neutral position and Iblly wraps were placed holding this in place until the plaster splints had hardened. Tourniquet was let down prior to the splinting. The patient had good capillary refill back to the extremity. The patient had minimal blood loss and tolerated the procedure well. Alfredo Sandhu PA-C, was my assistant administrator. He functioned as assistant administrator for the entire procedure. He assisted in patient positioning, assisted in soft tissue retraction, leg positioning during the reduction and fixation. He assisted in the closure of subcutaneous and skin and dressings, splint application, and will participate in postop care of the patient. I attest to the content of the Intraoperative Record and any orders documented therein. Any exceptio ns are noted below.
[2016-05-07] MEDS: POTASSIUM CHLORIDE INJ 10 MEQ in SODIUM CHLORIDE 0.9% 1000ML 1,000 ML IV SCH ×3 (01:50→21:39)
[2016-05-07] MEDS: ACETAMINOPHEN 500 MG TAB PO SCH ×3 (05:27→21:39)
[2016-05-07] MEDS: CEFAZOLIN IV 2,000 MG in DEXTROSE 5% 50ML 50 ML IV SCH ×3 (05:27→21:39)
[2016-05-07] MEDS ORDERED: CEFAZOLIN IV 2,000 MG in DEXTROSE 5% 50ML 50 ML IV SCH (06:00)
[2016-05-07 06:29] LABS: BUN/CREATININE RATIO 12.1 (10-20); CALCIUM 7.9 mg/dl (8.5-10.1); CREATININE 1.2 mg/dl (0.60-1.20); POTASSIUM 4.4 mmol/L (3.5-5.1)
[2016-05-07 06:41] LABS: HEMATOCRIT 31.5 % (37-47); MEAN CELL VOLUME 89.5 fL (80-100); MEAN CORPUSCULAR HEMOGLOBIN 30.1 pg (25-34); MEAN CORPUSCULAR HGB CONC 33.7 g/dl (32-36); PLATELET COUNT 181 K/uL (130-400); RED BLOOD COUNT 3.52 M/uL (4.2-5.4); WHITE BLOOD COUNT 8.16 K/uL (4.8-10.8)
--- NOTE | 2016-05-07 07:50 | Orthopedic Progress Note ---
Orthopedic Progress Note Date of Service May 07, 2016. Subjective Post OP Day: 1 Reports: feeling well, pain controlled w PO medications, Denies: SOB, calf pain , chest pain, complaints, light headedness, nausea / vomiting Objective calves soft nontender, N/V intact, splint C/D/I, capillary refill less than 2 sec., dressing C/D/I, A&O x3, toes mobile Date Time Temp Pulse Resp B/P Pulse Ox O2 Delivery O2 Flow Rate FiO2 05/07/16 07:37 37.2 92 18 124/79 95 Nasal Cannula 2.0 05/07/16 05:20 107 96 Nasal Cannula 2.0 05/07/16 05:19 120 84 Room Air 05/07/16 04:22 36.6 96 16 146/71 94 Room Air 05/07/16 00:15 Room Air 05/06/16 23:52 36.8 97 18 143/76 93 Room Air 05/06/16 19:22 36.6 82 18 115/63 98 Nasal Cannula 2.0 05/06/16 17:26 36.8 82 17 136/65 94 Nasal Cannula 2.0 05/06/16 15:48 36.8 77 17 138/71 98 Nasal Cannula 2.0 05/06/16 15:45 Nasal Cannula 2.0 05/06/16 15:34 97 Nasal Cannula 2.0 05/06/16 15:23 36.8 77 18 129/75 97 Nasal Cannula 2.0 05/06/16 15:17 Nasal Cannula 2.0 05/06/16 15:08 36.6 75 17 125/74 100 Nasal Cannula 4.0 05/06/16 14:10 36.2 80 16 114/69 96 Nasal Cannula 4 05/06/16 14:00 36.2 80 16 123/89 96 Nasal Cannula 4 05/06/16 13:50 36.2 81 16 112/61 96 Nasal Cannula 4 05/06/16 13:40 36.2 82 16 120/75 96 Nasal Cannula 4 05/06/16 13:30 80 16 126/67 96 Nasal Cannula 4 05/06/16 13:20 80 16 128/71 96 Mask 10 05/06/16 13:10 81 16 122/76 95 Mask 10 05/06/16 13:01 36.6 86 16 136/73 98 Mask 10 05/06/16 08:32 68 20 161/82 97 05/06/16 08:07 36.8 79 20 158/92 95 Room Air 05/06/16 07:52 78 16 113/90 97 Room Air 4.0 05/06/16 07:52 78 16 113/90 99 Nasal Cannula 4.0 Laboratory Results 24 Hours: Test 05/07/16 05:29 Hematocrit 31.5 % Hemoglobin 10.6 g/dL Assessment & Plan Assessment: POD #1, Left ankle ORIF distal fibula, I&D medial open wound with drain, repair medial deltoid ligament. Plan: PT- NWB DVT proph- ASA D/C plans Home PER [facility]Edicine. IV antibx for 48 hrs Inhouse Planning Pain Management: Oxycontin, Morphine, PO Tylenol, Oxy IR DVT Prophylaxis: TEDs, SCDs, ASA Discharge Planning Discharge Planning: home Pain Management: Oxycontin, PO Tylenol, Oxy IR DVT Prophylaxis: TEDs
[2016-05-07] MEDS: OXYCODONE HCL 10 MG TABCR (OXYCONTIN) PO SCH ×2 (08:54→21:16)
[2016-05-07] MEDS: OXYCODONE HCL IR 5 MG TAB (IMMEDIATE RELEASE) PO PRN (08:54)
[2016-05-07] MEDS: PREGABALIN 75 MG CAP PO SCH ×3 (08:54→21:16)
[2016-05-07] MEDS: LOSARTAN POTASSIUM 50 MG TAB PO SCH ×2 (08:55→21:17)
[2016-05-07] MEDS: ASPIRIN 81 MG ECTAB PO SCH ×2 (08:55→21:16)
[2016-05-07] MEDS: CHOLECALCIFEROL 1000 INTER.UNIT TAB PO SCH (08:55)
[2016-05-07] MEDS: VERAPAMIL HCL 240 MG TABCR PO SCH ×2 (08:55→21:16)
[2016-05-07] MEDS: SERTRALINE HCL 100 MG TAB PO SCH (08:56)
[2016-05-07] MEDS: MULTIVITAMIN TAB PO SCH (08:56)
[2016-05-07] MEDS: CYANOCOBALAMIN 500 MCG TAB (VIT B-12) PO SCH (08:56)
[2016-05-07] MEDS: CEROVITE ADV FORMULA TAB PO SCH (08:56)
[2016-05-07] MEDS: PANTOprazole SOD 40 MG TAB PO SCH (08:56)
[2016-05-07] MEDS: INSULIN ASPART 100 UNITS/ML 3 ML PEN SC SCH ×4 (09:02→21:00)
[2016-05-07] MEDS: INSULIN GLARGINE SOLOSTAR 100 UNITS/ML 3 ML PEN SC SCH (09:03)
--- NOTE | 2016-05-07 10:33 | Anesthesiology Progress Note ---
Anesthesia Post Op Note Date & Time May 07, 2016 at 10:32 Vital Signs Pain Intensity: 8.0 Vital Signs Past 12 Hours Date Time Temp Pulse Resp B/P Pulse Ox O2 Delivery O2 Flow Rate FiO2 05/07/16 07:50 Room Air 05/07/16 07:37 37.2 92 18 124/79 95 Nasal Cannula 2.0 05/07/16 05:20 107 96 Nasal Cannula 2.0 05/07/16 05:19 120 84 Room Air 05/07/16 04:22 36.6 96 16 146/71 94 Room Air 05/07/16 00:15 Room Air 05/06/16 23:52 36.8 97 18 143/76 93 Room Air Notes Mental Status: alert / awake / arousable, participated in evaluation Pt Amnestic to Procedure: Yes Nausea / Vomiting: adequately controlled Pain: adequately controlled Airway Patency, RR, SpO2: stable & adequate BP & HR: stable & adequate Hydration State: stable & adequate Anesthetic Complications: no major complications apparent
[2016-05-07] MEDS: SODIUM CHLORIDE 0.9% 1000ML 1,000 ML IV SCH (11:08)
[2016-05-07] MEDS ORDERED: NURSING VERBAL MED ORDER ONE (11:15)
[2016-05-07] MEDS: ONDANSETRON INJ 2 MG/ML 2 ML VIAL IV PRN ×2 (12:26→17:22)
--- NOTE | 2016-05-07 16:48 | Progress Note ---
Subjective Date of Service: May 07, 2016. Subjective Pt evaluation today including: conversation w/ patient, conversation w/ family Pt is doing better today. Pain to ankle is present but manageable. Eating without issue. No SOB or chest pain. Pt denies fever, abd pain, n/v/c/d, LE pain. ROS as noted above, otherwise neg. Problem List Medical Problems: (1) Open fracture dislocation of ankle Status: Acute Objective Vital Signs Date Time Temp Pulse Resp B/P Pulse Ox O2 Delivery O2 Flow Rate FiO2 05/07/16 15:10 36.7 79 18 119/75 92 Nasal Cannula 2.0 05/07/16 11:00 36.6 79 17 124/68 92 Room Air 05/07/16 07:50 Room Air 05/07/16 07:37 37.2 92 18 124/79 95 Nasal Cannula 2.0 05/07/16 05:20 107 96 Nasal Cannula 2.0 05/07/16 05:19 120 84 Room Air 05/07/16 04:22 36.6 96 16 146/71 94 Room Air 05/07/16 00:15 Room Air 05/06/16 23:52 36.8 97 18 143/76 93 Room Air 05/06/16 19:22 36.6 82 18 115/63 98 Nasal Cannula 2.0 05/06/16 17:26 36.8 82 17 136/65 94 Nasal Cannula 2.0 Physical Exam General Appearance: no apparent distress, + obese Respiratory/Chest: normal breath sounds, no respiratory distress Cardiovascular: regular rate, rhythm, no edema Abdomen: non tender, soft Extremities: no pedal edema, + pertinent finding (clean and dry around bandages ) Neurologic/Psychiatric: alert, oriented x 3 Skin: normal color, warm/dry Laboratory Results Last 24 Hours Test 05/06/16 17:03 05/06/16 20:52 05/07/16 05:29 05/07/16 08:03 Bedside Glucose 151 mg/dl 124 mg/dl 156 mg/dl White Blood Count 8.16 K/uL Red Blood Count 3.52 M/uL Hemoglobin 10.6 g/dL Hematocrit 31.5 % Mean Corpuscular Volume 89.5 fL Mean Corpuscular Hemoglobin 30.1 pg Mean Corpuscular Hemoglobin Concent 33.7 g/dl RDW Standard Deviation 47.9 fL RDW Coefficient of Variation 14.7 % Platelet Count 181 K/uL Mean Platelet Volume 10.0 fL Sodium Level 143 mmol/L Potassium Level 4.4 mmol/L Chloride Level 108 mmol/L Carbon Dioxide Level 25 mmol/L Anion Gap 10.0 mmol/L Blood Urea Nitrogen 15 mg/dl Creatinine 1.20 mg/dl Est Creatinine Clear Calc Drug Dose 66.7 ml/min Estimated GFR () 55.3 Estimated GFR (Non- 47.7 BUN/Creatinine Ratio 12.1 Random Glucose 166 mg/dl Calcium Level 7.9 mg/dl Test 05/07/16 11:03 Bedside Glucose 131 mg/dl Assessment and Plan 65 y/o female with a history of DM II, neuralgia, HTN, depression and anxiety who presented to the ED on 05/06 with ankle pain following a mechanical fall. X- rays reveal comminuted oblique fracture of distal fibula with lateral dislocation of talus with respect to tibia. Distal tibia protruding out of skin. Bleeding controlled. Pt afebrile, VSS. Ankle reduced and splinted in ED , post reduction films show significantly improved alignment of fracture. Patient admitted to med/surg by orthopedics for surgical correction later this morning. Medicine consulted for pre-operative evaluation. -Pain management, DVT prophylaxis, and PT/OT as per primary team -Patient is an acceptable risk for surgery -CXR shows no acute disease -EKG 75 bpm, NSR Ortho planning for IV abx x48 hrs Diabetes mellitus type 2--last HgbA1c checked 01/30/16 was 6.3. Pt takes 20 units Lantus qam, will reduce to 80% home dose while inpatient due to decreased PO intake prior to arrival and current NPO status -Hold metformin -Lantus 16 units SC qam -Insulin sliding scale -Check BSGs q ac and qhs -Recheck HgbA1c Neuralgia -Continue Lyrica 75 mg PO TID HTN--stable -Hold losartan post-operatively, may resume when renal function is checked again and stable -Continue verapamil 240 mg PO BID -Cover with hydralazine 10 mg IV q6h prn SBP >180 post operatively Depression with anxiety -Continue sertraline 100 mg PO qd Code Status -Level I, FULL RESUSCITATION STATUS
[2016-05-08] VITALS (7 sets, daily range): BP systolic 94–137; BP diastolic 57–82; PULSE 74–91; TEMP 36.6–36.9; O2SAT 55–97
[2016-05-08] MEDS: OXYCODONE HCL IR 5 MG TAB (IMMEDIATE RELEASE) PO PRN (00:11)
[2016-05-08] MEDS: CEFAZOLIN IV 2,000 MG in DEXTROSE 5% 50ML 50 ML IV SCH (05:54)
[2016-05-08] MEDS: ACETAMINOPHEN 500 MG TAB PO SCH ×3 (05:55→22:25)
[2016-05-08] MEDS: POTASSIUM CHLORIDE INJ 10 MEQ in SODIUM CHLORIDE 0.9% 1000ML 1,000 ML IV SCH (06:17)
[2016-05-08 06:55] LABS: HEMATOCRIT 29.6 % (37-47); MEAN CELL VOLUME 89.2 fL (80-100); MEAN CORPUSCULAR HEMOGLOBIN 30.4 pg (25-34); MEAN CORPUSCULAR HGB CONC 34.1 g/dl (32-36); MEAN PLATELET VOLUME 10.1 fL (7.4-10.4); PLATELET COUNT 163 K/uL (130-400); RED BLOOD COUNT 3.32 M/uL (4.2-5.4); WHITE BLOOD COUNT 8.47 K/uL (4.8-10.8)
[2016-05-08 07:32] LABS: BUN/CREATININE RATIO 12.8 (10-20); CALCIUM 8.6 mg/dl (8.5-10.1); CREATININE 1.2 mg/dl (0.60-1.20); POTASSIUM 4.4 mmol/L (3.5-5.1)
[2016-05-08] MEDS ORDERED: NURSING VERBAL MED ORDER ONE (08:00)
[2016-05-08] MEDS: PANTOprazole SOD 40 MG TAB PO SCH (08:58)
[2016-05-08] MEDS: CHOLECALCIFEROL 1000 INTER.UNIT TAB PO SCH (08:58)
[2016-05-08] MEDS: CYANOCOBALAMIN 500 MCG TAB (VIT B-12) PO SCH (08:58)
[2016-05-08] MEDS: VERAPAMIL HCL 240 MG TABCR PO SCH ×2 (08:58→22:21)
[2016-05-08] MEDS: SERTRALINE HCL 100 MG TAB PO SCH (08:58)
[2016-05-08] MEDS: ASPIRIN 81 MG ECTAB PO SCH ×2 (08:58→22:21)
[2016-05-08] MEDS: CEROVITE ADV FORMULA TAB PO SCH (08:58)
[2016-05-08] MEDS: LOSARTAN POTASSIUM 50 MG TAB PO SCH ×2 (08:59→22:21)
[2016-05-08] MEDS: MULTIVITAMIN TAB PO SCH (08:59)
--- NOTE | 2016-05-08 09:02 | Orthopedic Progress Note ---
Orthopedic Progress Note Date of Service May 08, 2016. Subjective Post OP Day: 2 Reports: feeling well, pain controlled w PO medications, Denies: SOB, calf pain , chest pain, complaints, light headedness, nausea / vomiting Additional Notes: Feels as though the oxycodone is making her a bit dizzy and out of sorts. Objective calves soft nontender, N/V intact, capillary refill less than 2 sec., incision C /D/I, A&O x3, toes mobile Dressing changed and drain pulled today by me. NO erythema, minimal drainage. Incisions look well. Date Time Temp Pulse Resp B/P Pulse Ox O2 Delivery O2 Flow Rate FiO2 05/08/16 07:45 36.6 91 18 137/82 91 Room Air 05/08/16 00:00 Nasal Cannula 05/07/16 22:35 36.8 85 19 116/80 97 Nasal Cannula 2.0 05/07/16 16:15 93 Nasal Cannula 2.0 05/07/16 15:10 36.7 79 18 119/75 92 Nasal Cannula 2.0 05/07/16 11:00 36.6 79 17 124/68 92 Room Air Laboratory Results 24 Hours: Test 05/08/16 06:35 Hematocrit 29.6 % Hemoglobin 10.1 g/dL Assessment & Plan Assessment: POD #2, Left ankle ORIF distal fibula, I&D medial open wound with drain, repair medial deltoid ligament. Plan: PT- NWB DVT proph- ASA D/C plans Home today after PT if stable ambulating and ok w medicine- O2 sats. PER [facility]. IV antibx for 48 hrs Inhouse Planning Pain Management: Ultram, PO Tylenol DVT Prophylaxis: TEDs, SCDs, ASA Discharge Planning Discharge Planning: home Pain Management: Ultram DVT Prophylaxis: TEDs
[2016-05-08] MEDS ORDERED: ASPEC81 PO (09:03)
[2016-05-08] MEDS ORDERED: ULT50X PO (09:03)
[2016-05-08] MEDS: INSULIN ASPART 100 UNITS/ML 3 ML PEN SC SCH ×4 (09:05→22:13)
[2016-05-08] MEDS: INSULIN GLARGINE SOLOSTAR 100 UNITS/ML 3 ML PEN SC SCH (09:06)
[2016-05-08] MEDS: PREGABALIN 75 MG CAP PO SCH ×3 (09:06→22:14)
--- NOTE | 2016-05-08 09:08 | Discharge Instructions ---
Discharge Instructions Admission Reason for Admission: Open Fracture Dislocation Of Ankle Discharge Discharge Diagnosis / Problem: Left ankle ORIG, I&D open frature Discharge Goals Goal(s): Improve function Activity Recommendations Activity Limitations: as noted below Weightbearing Status: Left non-weightbearing (with walker) . Instructions / Follow-Up Instructions / Follow-Up NON weight bearing Left leg with walker Ice/ elevate as needed Keep dressings/ splints clean, dry and in tact, DO NOT remove. Tramadol as needed. Follow up with Dr. Allen next week, call [phone] to make appt. Current Hospital Diet Patient's current hospital diet: Diabetes Type 2 Diet Discharge Diet Recommended Diet: Diabetes Type 2 Diet Procedures Procedures Performed: Open Reduction Internal Fixation Left Ankle; Irrigation & Debridement; Open Ankle Dislocation; Closure of Deltoid Ligament Repair Pending Studies Studies pending at discharge: no Laboratory Results Hemoglobin A1c Test 05/06/16 05:20 Range/Units Estimated Average Glucose 146 mg/dl Hemoglobin A1c 6.7 H 4.5-5.6 % Medical Emergencies . Who to Call and When: Medical Emergencies: If at any time you feel your situation is an emergency, please call 911 immediately. . Non-Emergent Contact Non-Emergency issues call your: Primary Care Provider . "Provider Documentation" section prepared by Alfredo Sandhu. VTE Core Measure Inpt VTE Proph given/why not?: Other Anticoagulation (asa), SCD's
--- NOTE | 2016-05-08 12:06 | Hospitalist Progress Note ---
Hospitalist Progress Note Date of Service May 08, 2016. (Sharla Thompson ., DELL) 05/08/16 agree with pa note c/o SOB, hypoxic (Luís Ray MD) Subjective Pt evaluation today including: conversation w/ patient, physical exam, chart review, lab review, review of studies, conversation w/ mental hygiene consultant, review of inpatient medication list PO Intake: Tolerating PO diet, decreased appetite Voiding: no voiding problems The patient states that she was nauseous throughout the day yesterday, but that it would resolve with Zofran. She denies any vomiting but does report decreased appetite. She also states that the oxycodone seems to make her feel a bit "loopy and out of it". The patient has been able to ambulate to the bathroom with assistance and is voiding without difficulty, although when she gets up to ambulate her O2 saturations drop to the mid 80s, or even as low as 77 % early this morning on room air. Her sats improve quickly once she sits back down. The patient reports passing gas but denies any bowel movements. The patient denies fevers, chills, sweats, chest pain, palpitations, claudication, cough, wheezing, shortness of breath, vomiting, abdominal pain, dysuria, hematuria, urinary retention, paralysis, numbness and tingling. Additional Comments: See HPI for pertinent positives and negatives. All other systems reviewed and negative. (Sharla Thompson ., DELL) Pt evaluation today including: conversation w/ patient, physical exam, chart review, review of studies, review of inpatient medication list Constitutional: No fever ENT: No hearing loss Respiratory: + dyspnea on exertion, + shortness of breath, No cough Cardiovascular: No chest pain Abdomen: No pain Female : No dysuria Neurologic: No memory loss Psychiatric: No depression symptoms (Luís Ray MD) Objective Vital Signs Date Time Temp Pulse Resp B/P Pulse Ox O2 Delivery O2 Flow Rate FiO2 05/08/16 07:45 36.6 91 18 137/82 91 Room Air 05/08/16 07:15 Room Air 05/08/16 00:00 Nasal Cannula 05/07/16 22:35 36.8 85 19 116/80 97 Nasal Cannula 2.0 05/07/16 16:15 93 Nasal Cannula 2.0 05/07/16 15:10 36.7 79 18 119/75 92 Nasal Cannula 2.0 (Sharla Thompson PA-C) Physical Exam General Appearance: WD/WN, no apparent distress, + obese (morbidly obese) Eyes: normal inspection, PERRL, EOMI ENT: normal ENT inspection, hearing grossly normal, pharynx normal Neck: supple, no JVD, trachea midline Respiratory/Chest: lungs clear, normal breath sounds, no respiratory distress Cardiovascular: regular rate, rhythm, no gallop, no murmur Abdomen: normal bowel sounds, non tender, soft Extremities: no pedal edema, no calf tenderness, normal capillary refill, + pertinent finding (left ankle incisions look clean and non-erythematous. Drain removed by Alfredo Sandhu PA-C and redressed) Neurologic/Psychiatric: alert, normal mood/affect, oriented x 3 Skin: normal color, warm/dry, no rash (Sharla Thompson PA-C) General Appearance: WD/WN, + mild distress Eyes: normal inspection ENT: hearing grossly normal Neck: supple Respiratory/Chest: chest non-tender, + decreased breath sounds Cardiovascular: regular rate, rhythm, no gallop Abdomen: normal bowel sounds, soft Extremities: normal range of motion, normal inspection Neurologic/Psychiatric: alert Skin: normal color (Luís Ray MD) Laboratory Results Last 24 Hours Test 05/07/16 17:02 05/07/16 20:49 05/08/16 06:35 05/08/16 08:24 Bedside Glucose 163 mg/dl 129 mg/dl 159 mg/dl 159 mg/dl White Blood Count 8.47 K/uL Red Blood Count 3.32 M/uL Hemoglobin 10.1 g/dL Hematocrit 29.6 % Mean Corpuscular Volume 89.2 fL Mean Corpuscular Hemoglobin 30.4 pg Mean Corpuscular Hemoglobin Concent 34.1 g/dl RDW Standard Deviation 47.4 fL RDW Coefficient of Variation 14.5 % Platelet Count 163 K/uL Mean Platelet Volume 10.1 fL Sodium Level 140 mmol/L Potassium Level 4.4 mmol/L Chloride Level 107 mmol/L Carbon Dioxide Level 24 mmol/L Anion Gap 9.0 mmol/L Blood Urea Nitrogen 15 mg/dl Creatinine 1.20 mg/dl Est Creatinine Clear Calc Drug Dose 66.7 ml/min Estimated GFR () 55.3 Estimated GFR (Non- 47.7 BUN/Creatinine Ratio 12.8 Random Glucose 165 mg/dl Calcium Level 8.6 mg/dl (Sharla Thompson .DELL) Assessment and Plan 65 y/o female with a history of DM II, neuralgia, HTN, depression and anxiety who presented to the ED on 05/06 with ankle pain following a mechanical fall. X- rays reveal comminuted oblique fracture of distal fibula with lateral dislocation of talus with respect to tibia. Distal tibia protruding out of skin. Bleeding controlled. Pt afebrile, VSS. Ankle reduced and splinted in ED , post reduction films show significantly improved alignment of fracture. Patient admitted to med/surg by orthopedics for surgical correction later this morning. Medicine consulted for pre-operative evaluation. -Pain management, DVT prophylaxis, and PT/OT as per primary team -Patient is an acceptable risk for surgery -CXR shows no acute disease -EKG 75 bpm, NSR Diabetes mellitus type 2--last HgbA1c checked 01/30/16 was 6.3. Pt takes 20 units Lantus qam, will reduce to 80% home dose while inpatient due to decreased PO intake prior to arrival and current NPO status -Hold metformin -Lantus 16 units SC qam -Insulin sliding scale -Check BSGs q ac and qhs -Rechecked HgbA1c 05/06 was 6.7 Neuralgia -Continue Lyrica 75 mg PO TID HTN--stable -Resume losartan 50 mg PO BID -Continue verapamil 240 mg PO BID Depression with anxiety -Continue sertraline 100 mg PO qd Code Status -Level I, FULL RESUSCITATION STATUS Thank you for this consultation. We will continue to follow. Dispo -Pt now agreeable to acute rehab as she will have difficulty navigating her home with a walker. Referral sent to [facility], pt accepted. [facility] is able to perform 2-step to determine need for home oxygen. -Pt. is stable from a medical standpoint, we will sign off. Clear for discharge as per primary team. (Sharla Thompson ., LISAC) 65 y/o female with a history of DM II, neuralgia, HTN, depression and anxiety who presented to the ED on 05/06 with ankle pain following a mechanical fall. X- rays reveal comminuted oblique fracture of distal fibula with lateral dislocation of talus with respect to tibia. Distal tibia protruding out of skin. Bleeding controlled. Pt afebrile, VSS. Ankle reduced and splinted in ED , post reduction films show significantly improved alignment of fracture. Patient admitted to med/surg by orthopedics for surgical correction. Medicine consulted for pre-operative evaluation. distal tibia fx s/p surgical correction Pain management, DVT prophylaxis, and PT/OT as per primary team CXR shows no acute disease EKG 75 bpm, NSR SOB: likely pulm edema, however cant rule out infectious/inflammatory process, malignancy on CT scan chest (reviewed). stopped IVF, given IV lasix, consult pulm, start empiric IV cefepime Diabetes mellitus type 2--last HgbA1c checked 01/30/16 was 6.3. Pt takes 20 units Lantus qam, will reduce to 80% home dose while inpatient due to decreased PO intake prior to arrival and current NPO status -Hold metformin -Lantus 16 units SC qam -Insulin sliding scale -Check BSGs q ac and qhs -Rechecked HgbA1c 05/06 was 6.7 Neuralgia -Continue Lyrica 75 mg PO TID HTN--stable -Resume losartan 50 mg PO BID -Continue verapamil 240 mg PO BID Depression with anxiety -Continue sertraline 100 mg PO qd Code Status -Level I, FULL RESUSCITATION STATUS Dispo -Pt now agreeable to acute rehab as she will have difficulty navigating her home with a walker. Referral sent to [facility], pt accepted. [facility] is able to perform 2-step to determine need for home oxygen. However will await for pulm input before patient is ready for d/c (Luís Ray MD)
[2016-05-08] MEDS: TRAMADOL HCL 50 MG TAB PO PRN (12:22)
--- NOTE | 2016-05-08 13:39 | Discharge Instructions ---
Discharge Instructions Admission Reason for Admission: Open Fracture Dislocation Of Ankle Discharge Discharge Diagnosis / Problem: Open Fracture Left Ankle Discharge Goals Goal(s): Decrease discomfort, Improve function Activity Recommendations Activity Level: Assistance Required Therapies: Physical Therapy (gati training), Occupational Therapy (ADL's / transfers) Weightbearing Status: Left non-weightbearing . Additional Information Patient informed of condition: Yes Advance Directives: No DNR: No Level of Care: Acute Rehab Communicable Disease: No Prognosis: Stable [place] Catheter: No Instructions / Follow-Up Instructions / Follow-Up Keep dressing and splint clean and dry. Do not put any weight on the left foot/ankle. Crutches or walker for ambulation. Keep foot elevated on at least 2 pillows when at rest to help with swelling. Follow up with Dr Allen next week. Call for appointment. [phone] Current Hospital Diet Patient's current hospital diet: Diabetes Type 2 Diet Discharge Diet Recommended Diet: Diabetes Type 2 Diet Procedures Procedures Performed: Open Reduction Internal Fixation Left Ankle; Irrigation & Debridement; Open Ankle Dislocation; Closure of Deltoid Ligament Repair Pending Studies Studies pending at discharge: no Physician Orders On Transfer Vital Signs: routine Additional Orders: 2 step Oxygen protocol; BSG ac/hs Laboratory Results Hemoglobin A1c Test 05/06/16 05:20 Range/Units Estimated Average Glucose 146 mg/dl Hemoglobin A1c 6.7 H 4.5-5.6 % Medical Emergencies . Who to Call and When: Medical Emergencies: If at any time you feel your situation is an emergency, please call 911 immediately. . Non-Emergent Contact Non-Emergency issues call your: Surgeon Call Non-Emergent contact if: temperature is above 101.5, your pain is not controlled, your pain is worsening, wound has increased drainage, wound has increased redness . . "Provider Documentation" section prepared by Sam Michael. Core Measure Problem Core Measures: None
[2016-05-08] MEDS ORDERED: OPTIRAY 320 IV PRN (16:45)
--- NOTE | 2016-05-08 17:31 | DIAGNOSTIC IMAGING REPORT ---
CHEST CTA for PULMONARY ARTERIES CT DOSE: 712.82 mGy.cm HISTORY: Atypical chest pain. TECHNIQUE: Multiaxial CT images of the chest were performed following the intravenous administration of contrast to evaluate the pulmonary arteries. Maximal intensity projection images were also obtained. COMPARISON STUDY: Chest CTA 07/15/2015. FINDINGS: Respiratory motion resulting in suboptimal evaluation of the distal ulnar arteries. Specifically, the segmental pulmonary arteries of the right upper lobe and subsegmental pulmonary arteries of the right lower lobe are essentially nondiagnostic. However, the remaining pulmonary arteries show no evidence for pulmonary embolus. The heart is stable in size. No evidence for an aortic dissection. No pleural or pericardial effusions. There is abnormal soft tissue encasing the right mainstem bronchus/bronchus intermedius. This measures up to 8 mm in thickness posteriorly. There is also abnormal soft tissue within the right hilum. Subcarinal soft tissue/lymphadenopathy measures up to 2 cm in thickness. This has developed in the interval. Right paratracheal lymphadenopathy has also developed in the interval. The dominant lymph node measures 11 mm in short axis diameter. Stable 3 cm left thyroid nodule. No left hilar lymphadenopathy. Limited views of the upper abdomen demonstrate fatty changes within the liver and a normal spleen. The visualized adrenal glands are unremarkable. No suspicious lytic or blastic osseous lesions. No pneumothorax. The central airways are patent. Diffuse interlobular septal thickening. Patchy ground glass density within the right upper lobe. IMPRESSION: 1. Diffuse interlobular septal thickening and a few patchy ground glass densities within the right upper lobe. This may represent developing pulmonary edema or an atypical interstitial process. 2. Interval development of abnormal soft tissue surrounding the right mainstem bronchus/bronchus intermedius and extending into the right hilum and subcarinal locations. There are few enlarged right peritracheal lymph nodes. This could be reactive to the pulmonary edema/interstitial process. However, a neoplastic process such as lymphoma or a primary bronchogenic malignancy could also have a similar appearance. Bronchoscopy should be performed for further evaluation. At a minimum, one month chest CT follow-up can also be performed to ensure resolution of these findings. 3. No evidence for pulmonary embolus with limitations as described above. 4. No change in the 3 cm left lower pole thyroid nodule. Electronically signed by: Delonte Bean M.D. 05/08/2016 5:29 PM Dictated Date/Time: 05/08/2016 5:20 PM
[2016-05-08 17:55] LABS: ARTERIAL BLD GAS O2 SATURATION 82.6 % (90-95); ARTERIAL BLOOD GAS BASE EXCESS -1.9 mEq/L (-9-1.8); ARTERIAL BLOOD GAS HCO3 24 mmol/L (19-24); ARTERIAL BLOOD GAS PO2 49 mm/Hg (80-95); ARTERIAL BLOOD GAS pH 7.32 (7.35-7.45)
--- NOTE | 2016-05-08 17:56 | DIAGNOSTIC IMAGING REPORT ---
CHEST ONE VIEW PORTABLE HISTORY: Short of breath. Congestive heart failure. COMPARISON: Chest 05/06/2016. FINDINGS: Diffuse interstitial and vascular thickening consistent with mild pulmonary edema. This has progressed. The heart is mildly enlarged. No pneumothorax. No pleural effusions. IMPRESSION: Interval development of mild interstitial edema. Electronically signed by: Delonte Bean M.D. 05/08/2016 5:54 PM Dictated Date/Time: 05/08/2016 5:54 PM
[2016-05-08] MEDS ORDERED: FUROSEMIDE 40 MG/4 ML VIAL IV STA (18:15)
[2016-05-08] MEDS ORDERED: FUROSEMIDE INJ 40 MG in SYRINGE 0 ML IV ONE (18:30)
[2016-05-08 18:46] LABS: ALLEN TEST POS (POS); O2 ADMINISTRATION ROOM AIR
[2016-05-08] MEDS: CEFEPIME IV 2,000 MG in DEXTROSE 5% 100ML 100 ML IV SCH (18:58)
[2016-05-08] MEDS ORDERED: VANCOMYCIN INJ 1,000 MG in SODIUM CHLORIDE 0.9% 250ML 250 ML IV STA (22:26)
[2016-05-08] MEDS ORDERED: VANCOMYCIN INJ 2,800 MG in SODIUM CHLORIDE 0.9% 500ML 500 ML IV SCH (23:00)
[2016-05-08 23:08] LABS: ISTAT ALLEN TEST Pass; ISTAT ARTERIAL BLOOD GAS HCO3 24 meq/L (19-24); ISTAT ARTERIAL BLOOD GAS PCO2 48 mmHg (35-46); ISTAT ARTERIAL BLOOD GAS PO2 72 mmHg (80-95); ISTAT ARTERIAL BLOOD GAS pH 7.31 (7.35-7.45); ISTAT CARBON DIOXIDE 26 mEq/l (24-31); ISTAT DELIVERY SYSTEM Cannula; ISTAT SITE L Radial
[2016-05-09] VITALS (9 sets, daily range): BP systolic 106–136; BP diastolic 53–77; PULSE 72–92; TEMP 36.5–36.9; O2SAT 88–96
[2016-05-09] MEDS: CEFEPIME IV 2,000 MG in DEXTROSE 5% 100ML 100 ML IV SCH ×3 (03:00→20:07)
[2016-05-09] MEDS ORDERED: VANCOMYCIN CONSULT ACTIVE PRN (03:15)
[2016-05-09] MEDS: ACETAMINOPHEN 500 MG TAB PO SCH ×3 (06:19→21:49)
[2016-05-09 06:28] LABS: HEMATOCRIT 27.8 % (37-47); MEAN CORPUSCULAR HEMOGLOBIN 30.1 pg (25-34); MEAN CORPUSCULAR HGB CONC 33.5 g/dl (32-36); MEAN PLATELET VOLUME 10.5 fL (7.4-10.4); PLATELET COUNT 153 K/uL (130-400); RED BLOOD COUNT 3.09 M/uL (4.2-5.4); WHITE BLOOD COUNT 6.36 K/uL (4.8-10.8)
[2016-05-09] MEDS: CHOLECALCIFEROL 1000 INTER.UNIT TAB PO SCH (08:05)
[2016-05-09] MEDS: PREGABALIN 75 MG CAP PO SCH ×3 (08:05→21:44)
[2016-05-09] MEDS: PANTOprazole SOD 40 MG TAB PO SCH (08:05)
[2016-05-09] MEDS: SERTRALINE HCL 100 MG TAB PO SCH (08:05)
[2016-05-09] MEDS: VERAPAMIL HCL 240 MG TABCR PO SCH ×2 (08:05→21:46)
[2016-05-09] MEDS: CYANOCOBALAMIN 500 MCG TAB (VIT B-12) PO SCH (08:05)
[2016-05-09] MEDS: CEROVITE ADV FORMULA TAB PO SCH (08:06)
[2016-05-09] MEDS: LOSARTAN POTASSIUM 50 MG TAB PO SCH ×2 (08:06→21:47)
[2016-05-09] MEDS: ASPIRIN 81 MG ECTAB PO SCH ×2 (08:06→21:45)
[2016-05-09] MEDS: MULTIVITAMIN TAB PO SCH (08:06)
[2016-05-09] MEDS: INSULIN GLARGINE SOLOSTAR 100 UNITS/ML 3 ML PEN SC SCH (08:07)
[2016-05-09 08:16] LABS: BASO % 0.4 %; BASO ABS # 0.02 K/uL (0-0.2); EOS % 0.7 %; HEMATOCRIT 27.4 % (37-47); IG% 0.4 %; LYMPH % 16.1 %; MEAN CORPUSCULAR HEMOGLOBIN 29.9 pg (25-34); MEAN PLATELET VOLUME 10.1 fL (7.4-10.4); MONO % 8.9 %; NEUT % 73.5 %; PLATELET COUNT 142 K/uL (130-400); RED BLOOD COUNT 3.01 M/uL (4.2-5.4)
[2016-05-09 08:27] LABS: COMPLETE YES; MEAN CORPUSCULAR HGB CONC 32.8 g/dl (32-36)
[2016-05-09 09:10] LABS: ALB/GLOB RATIO 0.9 (0.9-2); BUN/CREATININE RATIO 13.6 (10-20); CALCIUM 8.3 mg/dl (8.5-10.1); CREATININE 1.1 mg/dl (0.60-1.20); POTASSIUM 4.5 mmol/L (3.5-5.1)
[2016-05-09] MEDS: INSULIN ASPART 100 UNITS/ML 3 ML PEN SC SCH ×4 (09:42→21:49)
--- NOTE | 2016-05-09 11:32 | PULMONARY CONSULTATION ---
DATE OF CONSULTATION: 05/09/2016 TIME: 8:50 a.m. PRIMARY CARE PHYSICIAN: INOCENTE Yanez. HISTORY OF PRESENT ILLNESS: The patient was seen in room 201. She is a 65-year-old female who is being seen because of severe hypoxia and respiratory failure. The patient was in her usual state of reasonably good health until the morning of May 06. She fell on some wet grass. She suffered an open fracture of the left ankle area. She was brought to the Emergency Room. They tried to do a closed reduction to at least reduce the fracture and then subsequently she had an open reduction later in the day. She had been progressing and near ready for discharge to go to [facility]. She was found to have a significant decrease in her oxygen saturations, as low as 77%, which was noted on May 08. The patient herself has not been complaining of any shortness of breath. She denies any cough or sputum production or hemoptysis. She did not have chest pains. Her discharge was canceled. She was subsequently moved down to second floor PCU. She did have blood gases done last evening that were significantly abnormal. At 5:40 p.m. yesterday, the arterial pH was 7.32 with a pCO2 of 48 and a pO2 of 49 done on room air. Late last evening, she had a repeat blood gas on a nasal cannula nonspecified amount, showing a pH of 7.31 with a pCO2 of 48 and a pO2 of 72. The fact that her pH is abnormal, would suggest she has an acute respiratory acidosis. The patient denies having had any lung trouble in the past. She specifically denies asthma, tuberculosis, pneumonia, pleurisy or emphysema. Because of her hypoxia, she underwent a CT angio of the chest last evening. The study was somewhat limited but there was no definite evidence of pulmonary emboli. There was some diffuse interlobular septal thickening with a few patchy ground-glass densities in the right upper lobe. However, there was a new development compared with the prior CAT scan done on 07/15/2015. The recent CAT scan from yesterday showed abnormal soft tissue surrounding the right main stem bronchus and bronchus intermedius and extending into the right hilum and subcarinal regions. There are a few enlarged paratracheal lymph nodes. This is a very unusual finding. It does not look exactly typical for mediastinal mass but that cannot be excluded. The patient denies having had any change in her status over the past few months other than fatigue. She has not had chills, fevers or night sweats. She has had no weight loss. She has had no change in her appetite. She has noticed that she is more sleepy over the past several months. She is sleepy during the day. Her energy level has been lower. The patient states that when she goes to bed at about 10:00 p.m., she can fall asleep fairly readily as long as she reads a while. She is getting up in the morning about 4:30 because she goes to assist with the care of her 8-year-old granddaughter. She gets her ready for school and apparently takes her to school and then picks her up later in the day. She naps most mornings between 10:00 a.m. and 12:00 noon. She is also tired the rest of the day. The patient lives alone and she does not know if she snores. Thus, there has been no observed apnea. She typically has just 1 awakening during the nighttime and goes back to sleep readily. PAST SURGICAL HISTORY: 1. Tonsillectomy age 12. 2. Left elbow dislocation, apparently treated with a closed reduction. PAST MEDICAL HISTORY: 1. Hypertension. 2. Diabetes. 3. Renal calculi in 2016. 4. Anxiety. 5. Depression. 6. Childbirth x1 7. Ovarian cyst. SOCIAL HISTORY: The patient has not smoked since her 30s. She estimates that she smoked between 10 and 15 years and probably between 1/2 and 3/4 pack per day. Alcohol use is none. ALLERGIES: TERBINAFINE. SHE DOES NOT RECALL WHAT THE REACTION WAS. FAMILY HISTORY: Positive for coronary artery disease in both parents. MEDICATIONS: At home: 1. Aspirin 81 mg b.i.d. 2. Vitamin D3 daily. 3. Vitamin B12 daily. 4. Estrace 3 times per week. 5. Lantus insulin 20 units subQ in the morning. 6. Humalog 5 units in the morning. 7. Lorazepam 0.5 p.r.n. 8. Losartan 50 mg b.i.d. 9. Metformin 1000 mg b.i.d. 10. Naproxen 500 mg b.i.d. 11. Lyrica 75 mg t.i.d. 12. Sertraline 100 mg daily. 13. Tramadol 50-100 mg p.r.n. pain. 14. Verapamil 240 mg b.i.d. REVIEW OF SYSTEMS: GENERAL: The patient's energy level has been very low for the last 6 months or so. NEUROLOGIC: Denies syncope or near syncope. OPHTHALMIC: No visual complaints. ENT: She has some chronic nasal congestion. CARDIAC: No chest pain or palpitations. PULMONARY: Essentially no symptoms as noted above. GASTROINTESTINAL: Apparently has some constipation, but otherwise no symptoms. No trouble swallowing. GENITOURINARY: Denies complaints. MUSCULOSKELETAL: Obviously she is having the pain currently related to her ankle surgery. DERMATOLOGIC: No rash. ENDOCRINE: No lymphadenopathy. PHYSICAL EXAMINATION: VITAL SIGNS: The patient is a 65-year-old female who was cooperative, alert and oriented. She appeared in no distress. She is obese. BMI is 47.2 kg/m2. Weight is 136.7 kilograms. HEENT: Pupils were reactive to light. Nares were mildly congested. Mouth exam showed a Mallampati grade 3 pharynx. NECK: She has a large neck. No lymph nodes are palpable. CHEST: Of normal expansion and development. Heart rate is 72 per minute. Rhythm is regular. Blood pressure 136/63. Respiratory rate is 20 breaths per minute. Lung fisher were clear bilaterally but the breath sounds are decreased. This may be related to obesity. Oxygen saturation was 95% on 5 liters. ABDOMEN: Obese. Bowel sounds were present and were normal. There was no tenderness to palpation, masses or organomegaly. EXTREMITIES: Showed that the left leg has had surgery and is immobilized. There was no cyanosis, clubbing or edema. LABORATORY DATA: White count is 5.6. Hemoglobin 9.0. Hematocrit 27.4. Even on admission, her hemoglobin was down to 10.6 with hematocrit of 31.5. Platelets today are 142,000. Differential count showed 73.5 neutrophils, 16.1 lymphs, 8.9 monocytes, 0.7 eos, 0.4 basophils. Coags were normal. Sodium most recently was 140, potassium 4.4, chloride 107, and bicarb 24. BUN yesterday was 15 and the creatinine was 1.2. AST was 16, ALT was 26, and alk phos was 48. These were all within the limits of normal. Troponin was negative done this morning. Total protein is 6.9 and albumin was 3.9. Original x-ray of the ankle shows distal fibular fracture which is comminuted oblique. There was fragmentation of the articular surface of the tibia. IMPRESSIONS: 1. Acute respiratory failure with hypoxia and hypercarbia. 2. Obesity hypoventilation syndrome. 3. Obstructive sleep apnea. 4. Mediastinal adenopathy of uncertain origin. 5. Anemia. COMMENTS: The patient is totally asymptomatic, yet she has abnormal blood gases. Some of this is acute, based upon the acidity assessed by the pH. I believe thyroid function should be checked. I believe we should treat her with BiPAP at night. We will order it today during the day for a while to help her adapt to it. She will need a sleep study. She ultimately will need a followup CAT scan of the chest. She is not a candidate for bronchoscopy at present. I believe it would be reasonable to wait a month or two and do a repeat CAT scan with intention of reviewing the mediastinum and right hilum and subcarinal regions. I would be happy to follow her as an outpatient and assist with getting the sleep study done. Thank you very much for asking me to assist in her care.
--- NOTE | 2016-05-09 12:22 | Progress Note ---
Subjective Subjective Date of Service: May 09, 2016. Pt evaluation today including: conversation w/ patient, physical exam, chart review, lab review, review of studies, conversation w/ benefits consultant (cinthia), review of inpatient medication list Notes: hypoxic and hypercarbic overnight, transferred to telemetry Problem List Medical Problems: (1) Open fracture dislocation of ankle Status: Acute Review of Systems Constitutional: No fever ENT: No hearing loss Respiratory: No cough Abdomen: No pain Female : No dysuria Neurologic: No memory loss Psychiatric: No depression symptoms Endo: No fatigue Physical Exam Vital Signs Vital Signs Past 24 Hours: Date Time Temp Pulse Resp B/P Pulse Ox O2 Delivery O2 Flow Rate FiO2 05/09/16 11:52 36.9 75 18 120/69 88 BiPAP 4.0 05/09/16 09:37 79 96 2.0 05/09/16 08:00 Nasal Cannula 2.0 05/09/16 07:49 36.9 73 20 136/63 95 5.0 05/09/16 04:15 Nasal Cannula 05/09/16 03:56 36.5 72 18 106/53 94 Nasal Cannula 5.0 05/09/16 00:30 Nasal Cannula 05/08/16 23:48 36.8 78 20 133/70 96 Nasal Cannula 5.0 05/08/16 23:00 36.8 74 16 92 5.0 05/08/16 22:33 122/73 05/08/16 22:25 74 10 94/62 89 Nasal Cannula 5.0 05/08/16 16:11 92 Nasal Cannula 4.0 05/08/16 16:10 55 Room Air 05/08/16 16:10 36.9 88 10 126/57 55 Room Air 05/08/16 14:49 36.8 85 18 112/63 97 Room Air Physical Exam: General Appearance: WD/WN, no apparent distress, + obese Eyes: bilateral eyes normal inspection ENT: hearing grossly normal Neck: supple Respiratory/Chest: + decreased breath sounds Cardiovascular: no edema Abdomen: non tender Extremities: non-tender, + pertinent finding (left leg cast is present) Neurologic/Psychiatric: alert Skin: normal color Medications Medications: Current Inpatient Medications Medications (Trade) Dose Ordered Sig/Marni Route Start Time Stop Time Status Last Admin Dose Admin Pregabalin (Lyrica Cap) 75 mg TID PO 05/06/16 14:00 06/05/16 13:59 05/09/16 08:05 75 MG Sertraline HCl (Zoloft Tab) 100 mg DAILY PO 05/07/16 09:00 06/06/16 08:59 05/09/16 08:05 100 MG Verapamil HCl (Calan-Sr Tab) 240 mg BID PO 05/06/16 21:00 06/05/16 20:59 05/09/16 08:05 240 MG Insulin Glargine (Lantus Solostar Pen) 16 unit QAM SC 05/07/16 09:00 06/06/16 08:59 05/09/16 08:07 16 UNIT Glucose (Glucose 40% Gel) 15-30 GRAMS 15 GRAMS... UD PRN PO 05/06/16 09:15 06/05/16 09:14 Glucose (Glucose Chew Tab) 4-8 Tablets 4 Tabl... UD PRN PO 05/06/16 09:15 06/05/16 09:14 Dextrose (Dextrose 50% 50ML Syringe) 25-50ML OF 50% DW IV FOR... UD PRN IV 05/06/16 09:15 06/05/16 09:14 Glucagon (Glucagon Inj) 1 mg UD PRN SQ 05/06/16 09:15 06/05/16 09:14 Hydralazine HCl (HydrALAZINE INJ) 10 mg Q6H PRN IV. 05/06/16 09:15 06/05/16 09:14 Cholecalciferol (Vitamin D Tab) 1,000 inter.unit DAILY PO 05/07/16 09:00 06/06/16 08:59 05/09/16 08:05 1,000 INTER.UNIT Losartan Potassium (coZAAR TAB) 50 mg BID PO 05/06/16 21:00 06/05/16 20:59 05/09/16 08:06 50 MG Multivitamins/ Minerals (Multivitamin W/ Minerals Tab) 1 tab DAILY PO 05/07/16 09:00 06/06/16 08:59 05/09/16 08:06 1 TAB Cyanocobalamin (Vitamin B-12 Tab) 1,000 mcg DAILY PO 05/07/16 09:00 06/06/16 08:59 05/09/16 08:05 1,000 MCG Estradiol (Estrace Vag Cream 0.01% 42.5 Gm) 1 appln [id number] PV 05/06/16 13:15 06/05/16 13:14 Acetaminophen (Tylenol Tab) 1,000 mg Q8 PO 05/06/16 14:00 06/05/16 13:59 05/09/16 06:19 1,000 MG Magnesium Hydroxide (Milk Of Magnesia Susp) 30 ml Q6H PRN PO 05/06/16 13:15 06/05/16 13:14 Bisacodyl (Dulcolax Supp) 10 mg DAILY PRN SC 05/06/16 13:15 06/05/16 13:14 Sodium Biphosphate/ Sodium Phosphate (Fleet Enema) 132 ml DAILY PRN SC 05/06/16 13:15 06/05/16 13:14 Diphenhydramine HCl (Benadryl Cap) 25 mg Q8H PRN PO 05/06/16 13:15 06/05/16 13:14 Multivitamins (Multivitamin Tab) 1 tab QAM PO 05/07/16 09:00 06/06/16 08:59 05/09/16 08:06 1 TAB Ondansetron HCl (Zofran Inj) 4 mg Q6H PRN IV 05/06/16 13:15 06/05/16 13:14 05/07/16 17:22 4 MG Pantoprazole Sodium (Protonix Tab) 40 mg QAM PO 05/07/16 09:00 06/06/16 08:59 05/09/16 08:05 40 MG Aspirin (Ecotrin Tab) 81 mg BID PO 05/06/16 21:00 06/05/16 20:59 05/09/16 08:06 81 MG Insulin Aspart (novoLOG ASPART) SLIDING SCALE G... ACHS SC 05/06/16 16:00 06/05/16 15:59 05/09/16 09:42 3 UNITS Tramadol HCl (Ultram Tab) as above Q4H PRN PO 05/08/16 09:00 06/07/16 08:59 Future hold 05/08/16 12:22 100 MG Ioversol 100 ml 100 ml UD PRN IV 05/08/16 16:45 05/12/16 16:44 Cefepime HCl/ Dextrose (Maxipime IV/D5 100ml) 112.5 ml @ 200 mls/hr Q8H IV 05/08/16 19:00 05/15/16 18:59 05/09/16 03:00 200 MLS/HR Vancomycin HCl 1 ea 1 ea UD PRN N/A 05/09/16 03:15 06/08/16 03:14 Vancomycin HCl/ Sodium Chloride (Vancomycin Inj/ Nss 500ml) 530 ml @ 200 mls/hr Q16H IV 05/09/16 14:00 05/16/16 13:59 Laboratory Data Labs: Last 24 Hours Test 05/08/16 16:33 05/08/16 17:38 05/08/16 17:40 05/08/16 20:32 Creatine Kinase MB Ratio Bedside Glucose 136 mg/dl 138 mg/dl Arterial Blood pH 7.32 Arterial Blood Partial Pressure CO2 48 mmHg Arterial Blood Partial Pressure O2 49 mm/Hg Arterial Blood HCO3 24 mmol/L Arterial Blood Oxygen Saturation 82.6 % Arterial Blood Base Excess -1.9 mEq/L Arterial Blood Gas Delivery ROOM AIR Alvaro Test POS Creatine Kinase MB 1.5 ng/ml Troponin I < 0.015 ng/ml Test 05/08/16 22:52 05/09/16 00:33 05/09/16 00:52 05/09/16 05:10 Blood Gas Sample Site L Radial Bedside Blood Gas pH (LAB) 7.31 Bedside Blood Gas pCO2 (LAB) 48 mmHg Bedside Blood Gas pO2 (LAB) 72 mmHg Bedside Blood Gas HCO3 (LAB) 24 meq/L Bedside Blood Gas Total CO2 26 mEq/l Bedside Blood Gas Base Excess (LAB) -2.0 meq/L Bedside Blood Gas O2 Saturation 92.0 % Alvaro Test Pass Oxygen Delivery Device Cannula Creatine Kinase MB Ratio Creatine Kinase MB 1.0 ng/ml Troponin I < 0.015 ng/ml White Blood Count 6.36 K/uL Red Blood Count 3.09 M/uL Hemoglobin 9.3 g/dL Hematocrit 27.8 % Mean Corpuscular Volume 90.0 fL Mean Corpuscular Hemoglobin 30.1 pg Mean Corpuscular Hemoglobin Concent 33.5 g/dl RDW Standard Deviation 47.4 fL RDW Coefficient of Variation 14.5 % Platelet Count 153 K/uL Mean Platelet Volume 10.5 fL Test 05/09/16 06:32 05/09/16 08:01 05/09/16 08:08 05/09/16 11:30 Bedside Glucose 146 mg/dl 203 mg/dl White Blood Count 5.60 K/uL Red Blood Count 3.01 M/uL Hemoglobin 9.0 g/dL Hematocrit 27.4 % Mean Corpuscular Volume 91.0 fL Mean Corpuscular Hemoglobin 29.9 pg Mean Corpuscular Hemoglobin Concent 32.8 g/dl Platelet Count 142 K/uL Mean Platelet Volume 10.1 fL Neutrophils (%) (Auto) 73.5 % Lymphocytes (%) (Auto) 16.1 % Monocytes (%) (Auto) 8.9 % Eosinophils (%) (Auto) 0.7 % Basophils (%) (Auto) 0.4 % Neutrophils # (Auto) 4.12 K/uL Lymphocytes # (Auto) 0.90 K/uL Monocytes # (Auto) 0.50 K/uL Eosinophils # (Auto) 0.04 K/uL Basophils # (Auto) 0.02 K/uL RDW Standard Deviation 48.3 fL RDW Coefficient of Variation 14.6 % Immature Granulocyte % (Auto) 0.4 % Immature Granulocyte # (Auto) 0.02 K/uL Sodium Level 141 mmol/L Potassium Level 4.5 mmol/L Chloride Level 106 mmol/L Carbon Dioxide Level 25 mmol/L Anion Gap 10.0 mmol/L Blood Urea Nitrogen 15 mg/dl Creatinine 1.10 mg/dl Est Creatinine Clear Calc Drug Dose 74.8 ml/min Estimated GFR () 61.4 Estimated GFR (Non- 53.0 BUN/Creatinine Ratio 13.6 Random Glucose 144 mg/dl Calcium Level 8.3 mg/dl Total Bilirubin 0.4 mg/dl Aspartate Amino Transf (AST/SGOT) 27 U/L Alanine Aminotransferase (ALT/SGPT) 23 U/L Alkaline Phosphatase 53 U/L Total Protein 6.2 gm/dl Albumin 2.9 gm/dl Globulin 3.3 gm/dl Albumin/Globulin Ratio 0.9 Thyroid Stimulating Hormone (TSH) 0.423 uIu/ml Assessment and Plan A 65 y/o female with a history of DM II, neuralgia, HTN, depression and anxiety who presented to the ED on 05/06 with ankle pain following a mechanical fall. X- rays reveal comminuted oblique fracture of distal fibula with lateral dislocation of talus with respect to tibia. Distal tibia protruding out of skin. Bleeding controlled. Pt afebrile, VSS. Ankle reduced and splinted in ED , post reduction films show significantly improved alignment of fracture. Patient admitted to med/surg by orthopedics for surgical correction. Medicine consulted for pre-operative evaluation. distal tibia fx s/p surgical correction Pain management, DVT prophylaxis, and PT/OT as per primary team CXR shows no acute disease EKG 75 bpm, NSR Mixed acute respiratory failure: suspected sleep apnea in the setting of opiods use, however cant rule out infectious/inflammatory process, malignancy on CT scan chest (reviewed). abg reviewed cont empiric IV cefepime and added IV vancomycin appreciated pulm input, start BIPAP 03/17, may need sleep study or nocturnal pulse ox when stable avoid benzos and opiod narcotics check tsh Diabetes mellitus type 2--last HgbA1c checked 01/30/16 was 6.3. Pt takes 20 units Lantus qam, will reduce to 80% home dose while inpatient due to decreased PO intake prior to arrival and current NPO status Hold metformin Lantus 16 units SC qam continue Insulin sliding scale check BSGs q ac and qhs rechecked HgbA1c 05/06 was 6.7 Neuralgia Continue Lyrica 75 mg PO TID HTN, stable Resume losartan 50 mg PO BID Continue verapamil 240 mg PO BID Depression with anxiety Continue sertraline 100 mg PO qd Code Status Level I, FULL RESUSCITATION STATUS Dispo Pt now agreeable to acute rehab as she will have difficulty navigating her home with a walker. Referral sent to [facility], pt accepted, however needs to stabilize before considered for d/c, patient is transferred to hospitalist services due to complex medical problems
[2016-05-09] MEDS ORDERED: VANCOMYCIN INJ 1,500 MG in SODIUM CHLORIDE 0.9% 500ML 500 ML IV SCH (14:00)
--- NOTE | 2016-05-09 14:41 | Orthopedic Progress Note ---
Orthopedic Progress Note Date of Service May 09, 2016. Subjective Reports: feeling well, Denies: SOB, calf pain, chest pain, complaints, light headedness, nausea / vomiting Additional Notes: Pain improved control. Objective calves soft nontender, N/V intact, splint C/D/I, capillary refill less than 2 sec., A&O x3, toes mobile Date Time Temp Pulse Resp B/P Pulse Ox O2 Delivery O2 Flow Rate FiO2 05/09/16 12:00 Nasal Cannula 2.0 05/09/16 11:52 36.9 75 18 120/69 88 BiPAP 4.0 05/09/16 09:37 79 96 2.0 05/09/16 08:00 Nasal Cannula 2.0 05/09/16 07:49 36.9 73 20 136/63 95 5.0 05/09/16 04:15 Nasal Cannula 05/09/16 03:56 36.5 72 18 106/53 94 Nasal Cannula 5.0 05/09/16 00:30 Nasal Cannula 05/08/16 23:48 36.8 78 20 133/70 96 Nasal Cannula 5.0 05/08/16 23:00 36.8 74 16 92 5.0 05/08/16 22:33 122/73 05/08/16 22:25 74 10 94/62 89 Nasal Cannula 5.0 05/08/16 16:11 92 Nasal Cannula 4.0 05/08/16 16:10 55 Room Air 05/08/16 16:10 36.9 88 10 126/57 55 Room Air 05/08/16 14:49 36.8 85 18 112/63 97 Room Air Laboratory Results 24 Hours: Test 05/09/16 05:10 05/09/16 08:01 Hematocrit 27.8 % 27.4 % Hemoglobin 9.3 g/dL 9.0 g/dL White Blood Count 5.60 K/uL Red Blood Count 3.01 M/uL Mean Corpuscular Volume 91.0 fL Mean Corpuscular Hemoglobin 29.9 pg Mean Corpuscular Hemoglobin Concent 32.8 g/dl Platelet Count 142 K/uL Mean Platelet Volume 10.1 fL Neutrophils (%) (Auto) 73.5 % Lymphocytes (%) (Auto) 16.1 % Monocytes (%) (Auto) 8.9 % Eosinophils (%) (Auto) 0.7 % Basophils (%) (Auto) 0.4 % Neutrophils # (Auto) 4.12 K/uL Lymphocytes # (Auto) 0.90 K/uL Monocytes # (Auto) 0.50 K/uL Eosinophils # (Auto) 0.04 K/uL Basophils # (Auto) 0.02 K/uL Assessment & Plan Assessment: POD #3, Left ankle ORIF distal fibula, I&D medial open wound with drain, repair medial deltoid ligament. Plan: Will sign-off to Medicine service Patient will F/U in office with Dr Allen as an outpatient in 10-14 days. PT- NWB DVT proph- ASA D/C plans Home per Medicine Dept after PT if stable ambulating and stable O2 sats. PER Medicine. IV antibx for 48 hrs post-op. Thank you Inhouse Planning Pain Management: Ultram, PO Tylenol DVT Prophylaxis: TEDs, SCDs, ASA Discharge Planning Discharge Planning: home Pain Management: Ultram DVT Prophylaxis: Ada
[2016-05-09] MEDS ORDERED: VANCOMYCIN TROUGH SCH (21:30)
[2016-05-10] VITALS (11 sets, daily range): BP systolic 116–181; BP diastolic 66–97; PULSE 67–89; TEMP 36.6–37.4; O2SAT 91–95
[2016-05-10 05:56] LABS: HEMATOCRIT 28.3 % (37-47); MEAN CORPUSCULAR HEMOGLOBIN 29.9 pg (25-34); MEAN CORPUSCULAR HGB CONC 33.6 g/dl (32-36); MEAN PLATELET VOLUME 10.5 fL (7.4-10.4); PLATELET COUNT 175 K/uL (130-400); RED BLOOD COUNT 3.18 M/uL (4.2-5.4); WHITE BLOOD COUNT 5.75 K/uL (4.8-10.8)
[2016-05-10] MEDS: CEFEPIME IV 2,000 MG in DEXTROSE 5% 100ML 100 ML IV SCH ×3 (06:06→20:17)
[2016-05-10] MEDS: ACETAMINOPHEN 500 MG TAB PO SCH ×3 (06:06→20:19)
[2016-05-10] MEDS ORDERED: CLONIDINE HCL 0.1 MG TAB PO ONE (08:00)
[2016-05-10 08:11] LABS: BUN/CREATININE RATIO 14.8 (10-20); CALCIUM 8.2 mg/dl (8.5-10.1); CREATININE 0.89 mg/dl (0.60-1.20); POTASSIUM 4.2 mmol/L (3.5-5.1)
[2016-05-10] MEDS: CEROVITE ADV FORMULA TAB PO SCH (08:24)
[2016-05-10] MEDS: MULTIVITAMIN TAB PO SCH (08:24)
[2016-05-10] MEDS: VERAPAMIL HCL 240 MG TABCR PO SCH ×2 (08:24→20:18)
[2016-05-10] MEDS: LOSARTAN POTASSIUM 50 MG TAB PO SCH ×2 (08:24→20:18)
[2016-05-10] MEDS: SERTRALINE HCL 100 MG TAB PO SCH (08:24)
[2016-05-10] MEDS: PREGABALIN 75 MG CAP PO SCH ×3 (08:24→20:18)
[2016-05-10] MEDS: CHOLECALCIFEROL 1000 INTER.UNIT TAB PO SCH (08:25)
[2016-05-10] MEDS: PANTOprazole SOD 40 MG TAB PO SCH (08:25)
[2016-05-10] MEDS: ASPIRIN 81 MG ECTAB PO SCH ×2 (08:25→20:18)
[2016-05-10] MEDS: POLYETHYLENE (MIRALAX) 17 GM PACK PO SCH (08:25)
[2016-05-10] MEDS: CYANOCOBALAMIN 500 MCG TAB (VIT B-12) PO SCH (08:25)
[2016-05-10] MEDS: INSULIN ASPART 100 UNITS/ML 3 ML PEN SC SCH ×4 (08:26→21:14)
[2016-05-10] MEDS: INSULIN GLARGINE SOLOSTAR 100 UNITS/ML 3 ML PEN SC SCH (08:27)
[2016-05-10] MEDS: TRAMADOL HCL 50 MG TAB PO PRN (10:52)
[2016-05-10] MEDS: ALBUT/IPRATROP 3MG/0.5MG NEB 3 ML VIAL INH SCH ×3 (11:11→19:31)
--- NOTE | 2016-05-10 11:12 | Progress Note ---
Subjective Subjective Date of Service: May 10, 2016. Pt evaluation today including: conversation w/ patient, physical exam, chart review, review of studies, conversation w/ hospice consultant (cinthia), review of inpatient medication list Notes: hypoxic and tired, only had bipap for 1 hour yesterday and pulse ox was 80-92% on RA Problem List Medical Problems: (1) Open fracture dislocation of ankle Status: Acute Review of Systems Constitutional: No fever ENT: No hearing loss Respiratory: + dyspnea on exertion, + shortness of breath, No cough Cardiac: No chest pain Abdomen: No pain Musculoskeletal: No joint pain Female : No dysuria Neurologic: No memory loss Psychiatric: No depression symptoms Endo: + fatigue Skin: No rash Physical Exam Vital Signs Vital Signs Past 24 Hours: Date Time Temp Pulse Resp B/P Pulse Ox O2 Delivery O2 Flow Rate FiO2 05/10/16 08:00 Nasal Cannula 4.0 05/10/16 07:43 36.6 86 20 171/80 94 4.0 05/10/16 04:26 95 Nasal Cannula 4.0 05/10/16 03:48 36.8 67 20 116/66 91 Nasal Cannula 4.0 05/10/16 00:56 95 Nasal Cannula 4.0 05/09/16 23:15 36.6 92 20 128/77 95 Nasal Cannula 4.0 05/09/16 22:14 80 94 4.0 05/09/16 20:43 36.7 80 16 125/53 94 Nasal Cannula 4.0 05/09/16 20:03 95 Nasal Cannula 4.0 05/09/16 16:18 36.6 80 16 134/66 95 Nasal Cannula 4.0 05/09/16 16:00 Nasal Cannula 2.0 05/09/16 12:00 Nasal Cannula 2.0 05/09/16 11:52 36.9 75 18 120/69 88 BiPAP 4.0 Physical Exam: General Appearance: WD/WN, + mild distress, + obese Eyes: bilateral eyes normal inspection ENT: hearing grossly normal, pharynx normal Neck: supple, no JVD Respiratory/Chest: chest non-tender Cardiovascular: regular rate, rhythm Abdomen: non tender Extremities: normal range of motion Neurologic/Psychiatric: alert Skin: normal color Medications Medications: Current Inpatient Medications Medications (Trade) Dose Ordered Sig/Marni Route Start Time Stop Time Status Last Admin Dose Admin Pregabalin (Lyrica Cap) 75 mg TID PO 05/06/16 14:00 06/05/16 13:59 05/10/16 08:24 75 MG Sertraline HCl (Zoloft Tab) 100 mg DAILY PO 05/07/16 09:00 06/06/16 08:59 05/10/16 08:24 100 MG Verapamil HCl (Calan-Sr Tab) 240 mg BID PO 05/06/16 21:00 06/05/16 20:59 05/10/16 08:24 240 MG Insulin Glargine (Lantus Solostar Pen) 16 unit QAM SC 05/07/16 09:00 06/06/16 08:59 05/10/16 08:27 16 UNIT Glucose (Glucose 40% Gel) 15-30 GRAMS 15 GRAMS... UD PRN PO 05/06/16 09:15 06/05/16 09:14 Glucose (Glucose Chew Tab) 4-8 Tablets 4 Tabl... UD PRN PO 05/06/16 09:15 06/05/16 09:14 Dextrose (Dextrose 50% 50ML Syringe) 25-50ML OF 50% DW IV FOR... UD PRN IV 05/06/16 09:15 06/05/16 09:14 Glucagon (Glucagon Inj) 1 mg UD PRN SQ 05/06/16 09:15 06/05/16 09:14 Hydralazine HCl (HydrALAZINE INJ) 10 mg Q6H PRN IV. 05/06/16 09:15 06/05/16 09:14 Cholecalciferol (Vitamin D Tab) 1,000 inter.unit DAILY PO 05/07/16 09:00 06/06/16 08:59 05/10/16 08:25 1,000 INTER.UNIT Losartan Potassium (coZAAR TAB) 50 mg BID PO 05/06/16 21:00 06/05/16 20:59 05/10/16 08:24 50 MG Multivitamins/ Minerals (Multivitamin W/ Minerals Tab) 1 tab DAILY PO 05/07/16 09:00 06/06/16 08:59 05/10/16 08:24 1 TAB Cyanocobalamin (Vitamin B-12 Tab) 1,000 mcg DAILY PO 05/07/16 09:00 2/25/17 08:59 05/10/16 08:25 1,000 MCG Estradiol (Estrace Vag Cream 0.01% 42.5 Gm) 1 appln [id number] PV 05/06/16 13:15 06/05/16 13:14 Acetaminophen (Tylenol Tab) 1,000 mg Q8 PO 05/06/16 14:00 06/05/16 13:59 05/10/16 06:06 1,000 MG Magnesium Hydroxide (Milk Of Magnesia Susp) 30 ml Q6H PRN PO 05/06/16 13:15 06/05/16 13:14 Bisacodyl (Dulcolax Supp) 10 mg DAILY PRN MT 05/06/16 13:15 06/05/16 13:14 Sodium Biphosphate/ Sodium Phosphate (Fleet Enema) 132 ml DAILY PRN MT 05/06/16 13:15 06/05/16 13:14 Diphenhydramine HCl (Benadryl Cap) 25 mg Q8H PRN PO 05/06/16 13:15 06/05/16 13:14 Multivitamins (Multivitamin Tab) 1 tab QAM PO 05/07/16 09:00 06/06/16 08:59 05/10/16 08:24 1 TAB Ondansetron HCl (Zofran Inj) 4 mg Q6H PRN IV 05/06/16 13:15 06/05/16 13:14 05/07/16 17:22 4 MG Pantoprazole Sodium (Protonix Tab) 40 mg QAM PO 05/07/16 09:00 06/06/16 08:59 05/10/16 08:25 40 MG Aspirin (Ecotrin Tab) 81 mg BID PO 05/06/16 21:00 06/05/16 20:59 05/10/16 08:25 81 MG Insulin Aspart (novoLOG ASPART) SLIDING SCALE G... ACHS SC 05/06/16 16:00 06/05/16 15:59 05/10/16 08:26 4 UNITS Tramadol HCl (Ultram Tab) as above Q4H PRN PO 05/08/16 09:00 06/07/16 08:59 Future hold 05/10/16 10:52 50 MG Ioversol 100 ml 100 ml UD PRN IV 05/08/16 16:45 05/12/16 16:44 Cefepime HCl/ Dextrose (Maxipime IV/D5 100ml) 112.5 ml @ 200 mls/hr Q8H IV 05/08/16 19:00 05/15/16 18:59 05/10/16 10:51 200 MLS/HR Polyethylene (Miralax Powder Packet) 17 gm DAILY PO 05/10/16 09:30 06/09/16 09:29 05/10/16 08:25 17 GM Albuterol/ Ipratropium (Duoneb) 3 ml QIDR INH 05/10/16 12:00 06/09/16 11:59 UNV Laboratory Data Labs: Last 24 Hours Test 05/09/16 11:30 05/09/16 16:20 05/09/16 20:15 05/10/16 05:18 Bedside Glucose 203 mg/dl 124 mg/dl 123 mg/dl White Blood Count 5.75 K/uL Red Blood Count 3.18 M/uL Hemoglobin 9.5 g/dL Hematocrit 28.3 % Mean Corpuscular Volume 89.0 fL Mean Corpuscular Hemoglobin 29.9 pg Mean Corpuscular Hemoglobin Concent 33.6 g/dl RDW Standard Deviation 45.9 fL RDW Coefficient of Variation 14.1 % Platelet Count 175 K/uL Mean Platelet Volume 10.5 fL Sodium Level 143 mmol/L Potassium Level 4.2 mmol/L Chloride Level 108 mmol/L Carbon Dioxide Level 26 mmol/L Anion Gap 9.0 mmol/L Blood Urea Nitrogen 13 mg/dl Creatinine 0.89 mg/dl Est Creatinine Clear Calc Drug Dose 92.4 ml/min Estimated GFR () 79.4 Estimated GFR (Non- 68.5 BUN/Creatinine Ratio 14.8 Random Glucose 145 mg/dl Calcium Level 8.2 mg/dl Test 05/10/16 06:49 Bedside Glucose 155 mg/dl Assessment and Plan A 65 y/o female with a history of DM II, neuralgia, HTN, depression and anxiety who presented to the ED on 05/06 with ankle pain following a mechanical fall. X- rays reveal comminuted oblique fracture of distal fibula with lateral dislocation of talus with respect to tibia. Distal tibia protruding out of skin. Bleeding controlled. Pt afebrile, VSS. Ankle reduced and splinted in ED , post reduction films show significantly improved alignment of fracture. Patient admitted to med/surg by orthopedics for surgical correction. Medicine consulted for pre-operative evaluation. distal tibia fx s/p surgical correction Pain management, DVT prophylaxis, and PT/OT as per primary team CXR shows no acute disease EKG 75 bpm, NSR Mixed acute respiratory failure: suspected sleep apnea in the setting of opiods use, mild pulmonary edema however cant rule out infectious/inflammatory process, malignancy on CT scan chest (reviewed). As per pulm needs to have CT chest repeated in few weeks after d/c abg reviewed, respiratory acidosis is present, repeat ABG this am, check CXR cont empiric IV cefepime and IV vancomycin appreciated pulm input, BIPAP / as tolerated as per pulm, may need sleep study or nocturnal pulse ox when stable avoid benzos and opiod narcotics tsh nl Suspected CHF (unknown type) CXR: pulm edema, given additional dose of IV lasix, check ECHO results, monitor output [id number] Diabetes mellitus type 2--last HgbA1c checked 01/30/16 was 6.3. Pt takes 20 units Lantus qam Hold metformin Lantus 16 units SC qam continue Insulin sliding scale check BSGs q ac and qhs rechecked HgbA1c 05/06 was 6.7 Neuralgia Continue Lyrica 75 mg PO TID HTN, stable losartan 50 mg PO BID verapamil 240 mg PO BID given a dose of po clonidine Depression with anxiety Continue sertraline 100 mg PO qd Code Status Level I, FULL RESUSCITATION STATUS Dispo Pt now agreeable to acute rehab as she will have difficulty navigating her home with a walker. Referral sent to [facility], pt accepted, however needs to stabilize before considered for d/c, patient is transferred to hospitalist services due to complex medical problems
--- NOTE | 2016-05-10 11:25 | PULMONARY PROGRESS NOTE ---
DATE: 05/10/2016 TIME: 10:35 a.m. SUBJECTIVE: The patient is more short of breath today. She is very tired. She did not sleep well. She wore BiPAP for about 2 hours yesterday morning as a trial. Last night; however, she only wore it for about an hour. She states she was more bothered by the mask then she was with the pressure. During the night time, nursing staff observed apneas and even with 4 liters of oxygen she was desaturating. She definitely seems a little more winded this morning. She is not coughing. She denies chest pains. There has been no sputum production or hemoptysis. OBJECTIVE: GENERAL: The patient appeared somewhat winded. Temperature is 36.6. NECK: She has a large neck. No lymph nodes are palpable. The neck veins were difficult to assess. VITAL SIGNS: Heart rate was 86 per minute. Rhythm was regular. Blood pressure 171/80. LUNGS: Lung fisher reveal decreased breath sounds bilaterally. Respiratory rate was 24 breaths per minute. Oxygen saturation taken by myself on room air was 81% when supine, and after she sat up it went up to 85%. ABDOMEN: Obese. She states she feels full in the abdomen. Bowel sounds were present. There was no tenderness to palpation. EXTREMITIES: She states her surgical ankle does not feel too bad. She is not having a lot of pain. No significant edema was noted on either leg. White count today is 5.75. Hemoglobin is 9.5. Platelets are 175,000. Electrolytes show sodium 143, potassium 4.2, chloride 108, bicarb 26. BUN was 13 with a creatinine of 0.89. Blood sugar 155. IMPRESSIONS: 1. Respiratory failure with hypoxia and hypercarbia. 2. Obesity hypoventilation syndrome. 3. Obstructive sleep apnea. 4. Mild mediastinal adenopathy. 5. Anemia. COMMENTS AND RECOMMENDATIONS: The patient is more short of breath this morning and she is more hypoxic. Unfortunately, she did not tolerate BiPAP well. She is willing to try again. I am asking nursing to put her on BiPAP for 1 hour this morning and 1 hour this afternoon. I am going to repeat a blood gas for tomorrow. I am going to do a portable chest x-ray today because of her hypoxia. I am going to initiate some respiratory treatments for the patient. I plan on discussing with her hospitalist her followup and how we can get ultimately a sleep study done. She will be going directly to rehab whenever that happens. We just need to be as certain as we can that everything does not follow through the cracks. The options at that time would be a home sleep study versus an in-lab sleep study which would give some delay. Also, it could be that she might qualify for a BiPAP without a sleep study, but as of now, she does not qualify because her pCO2 must be 52 or higher, as per Medicare at least.
--- NOTE | 2016-05-10 11:49 | DIAGNOSTIC IMAGING REPORT ---
CHEST ONE VIEW PORTABLE HISTORY: Short of breath. Hypoxia. COMPARISON: Chest 05/08/2016. FINDINGS: Progressive diffuse interstitial and vascular thickening. Trace fluid within the right minor fissure. There may also be a trace left pleural effusion. The heart is mildly enlarged. No pneumothorax. IMPRESSION: Progression of the moderate pulmonary edema and trace bilateral pleural effusions. Electronically signed by: Delonte Bean M.D. 05/10/2016 11:48 AM Dictated Date/Time: 05/10/2016 11:47 AM
[2016-05-10] MEDS ORDERED: FUROSEMIDE 40 MG/4 ML VIAL IV STA (12:29)
[2016-05-10] MEDS ORDERED: FUROSEMIDE INJ 40 MG in SYRINGE 0 ML IV STA (12:39)
[2016-05-10] MEDS ORDERED: PERFLUTREN LIPID MICROSPHERE (DEFINITY) IV ONE (14:00)
[2016-05-10] MEDS ORDERED: VANCOMYCIN TROUGH SCH (21:30)
[2016-05-11] VITALS (12 sets, daily range): BP systolic 130–161; BP diastolic 67–87; PULSE 76–86; TEMP 36.5–36.6; O2SAT 95–98
[2016-05-11] MEDS: CEFEPIME IV 2,000 MG in DEXTROSE 5% 100ML 100 ML IV SCH ×2 (03:33→12:01)
[2016-05-11] MEDS: ACETAMINOPHEN 500 MG TAB PO SCH ×3 (05:40→21:17)
[2016-05-11] MEDS: ALBUT/IPRATROP 3MG/0.5MG NEB 3 ML VIAL INH SCH ×4 (07:02→19:50)
[2016-05-11] MEDS: INSULIN ASPART 100 UNITS/ML 3 ML PEN SC SCH ×4 (08:00→21:14)
[2016-05-11 08:09] LABS: ARTERIAL BLD GAS O2 SATURATION 95.2 % (90-95); ARTERIAL BLOOD GAS BASE EXCESS 5.8 mEq/L (-9-1.8); ARTERIAL BLOOD GAS HCO3 30 mmol/L (19-24); ARTERIAL BLOOD GAS PO2 77 mm/Hg (80-95); ARTERIAL BLOOD GAS pH 7.47 (7.35-7.45)
[2016-05-11 08:10] LABS: ALLEN TEST POS (POS); O2 ADMINISTRATION 4L
[2016-05-11 08:18] LABS: HEMATOCRIT 28.1 % (37-47); MEAN CELL VOLUME 89.8 fL (80-100); MEAN CORPUSCULAR HGB CONC 33.5 g/dl (32-36); PLATELET COUNT 187 K/uL (130-400); RED BLOOD COUNT 3.13 M/uL (4.2-5.4); WHITE BLOOD COUNT 4.71 K/uL (4.8-10.8)
[2016-05-11] MEDS: CEROVITE ADV FORMULA TAB PO SCH (08:18)
[2016-05-11] MEDS: ASPIRIN 81 MG ECTAB PO SCH ×2 (08:18→20:39)
[2016-05-11] MEDS: CYANOCOBALAMIN 500 MCG TAB (VIT B-12) PO SCH (08:18)
[2016-05-11] MEDS: SERTRALINE HCL 100 MG TAB PO SCH (08:18)
[2016-05-11] MEDS: LOSARTAN POTASSIUM 50 MG TAB PO SCH ×2 (08:19→20:39)
[2016-05-11] MEDS: VERAPAMIL HCL 240 MG TABCR PO SCH ×2 (08:19→20:40)
[2016-05-11] MEDS: CHOLECALCIFEROL 1000 INTER.UNIT TAB PO SCH (08:20)
[2016-05-11] MEDS: MULTIVITAMIN TAB PO SCH (08:20)
[2016-05-11] MEDS: POLYETHYLENE (MIRALAX) 17 GM PACK PO SCH (08:20)
[2016-05-11] MEDS: PANTOprazole SOD 40 MG TAB PO SCH (08:21)
[2016-05-11] MEDS: PREGABALIN 75 MG CAP PO SCH ×3 (08:31→20:40)
[2016-05-11 08:44] LABS: BUN/CREATININE RATIO 14.5 (10-20); CALCIUM 8.7 mg/dl (8.5-10.1); CREATININE 0.8 mg/dl (0.60-1.20); POTASSIUM 3.8 mmol/L (3.5-5.1)
[2016-05-11] MEDS: INSULIN GLARGINE SOLOSTAR 100 UNITS/ML 3 ML PEN SC SCH (09:00)
--- NOTE | 2016-05-11 10:51 | ECHOCARDIOGRAM REPORT ---
*NOTICE TO RECEIVING LIBERTARIAN AGENCY This information is strictly Confidential and protected under [place] law. [place] law prohibits you from making any further disclosure of this information unless further disclosure is expressly permitted by the written consent of the person to whom it pertains or is authorized by law. A general authorization for the release of medical or other information is not sufficient for this purpose. Hospital accepts no responsibility if the information is made available to any other person, INCLUDING THE PATIENT. Interpretation Summary * Name: CECI KEMP Study Date: 05/10/2016 01:28 PM BP: 181/97 mmHg * Patient Location: .2E\S\E201\S\1 HR: 93 * : 1950 (M/d/yyyy) Gender: Female Height: 67 in * Age: 65 yrs Ethnicity: [place] Weight: 301 lb * Ordering Physician: Luís Rya * Referring Physician: Self, Referred * Performed By: Adam Luis RDCS * * Reason For Study: CHF * BSA: 2.4 m2 * Hyperdynamic left ventricular systolic function. * Mild concentric left ventricular hypertrophy. * Left ventricular diastolic dysfunction. * Mild left atrial dilatation. * Minimal aortic stenosis. * Trace tricuspid regurgitation. * Mildly elevated estimated right ventricular systolic pressure. * The study was technically difficult. * -- Conclusions -- * The study was technically difficult. Procedure Details * A complete two-dimensional transthoracic echocardiogram was performed (2D, M-mode, Doppler and color flow Doppler). * The study was technically difficult. * The study was technically difficult, but visualization was adequate with the administration of Definity ultrasound contrast. * A contrast injection of Definity was performed to improve assessment of LV function. * Contrast was injected into an intravenous site in the right arm. * One vial of Definity ultrasound contrast was diluted in normal saline to a total volume of 10 ml. A total of '3' ml of solution was administered during imaging. * Lot # [id number] of Definity utilized for procedure. * Expiration date 1DEC17. * The attending nurse who injected the contrast agent was ELISHA Erickson. Left Ventricle * The left ventricle is normal in size. * There is mild concentric left ventricular hypertrophy. * The left ventricle is hyperdynamic. * Ejection Fraction = >70 %. * Diastolic dysfunction, Grade II (pseudonormalization pattern). * No regional wall motion abnormalities noted. Right Ventricle * The right ventricle is normal in size and function. Atria * The left atrium is mildly dilated. * Right atrial size is normal. * No ASD detected; PFO is not assessed. Mitral Valve * The mitral valve is normal. * There is no mitral valve stenosis. * There is no mitral regurgitation noted. Tricuspid Valve * The tricuspid valve is not well visualized, but is grossly normal. * There is no tricuspid stenosis. * There is trace tricuspid regurgitation. * Right ventricular systolic pressure is elevated at 30-40mmHg. Aortic Valve * The aortic valve is not well visualized. * The aortic valve is trileaflet. * Aortic valve area was calculated at 2.2 cm\S\2 using the continuity equation. * Mild valvular aortic stenosis. * No aortic regurgitation is present. Pulmonic Valve * The pulmonic valve is not well visualized. * There is no pulmonic valvular stenosis. * There is no significant pulmonary regurgitation. Great Vessels * The aortic root is normal size. Pericardium/Pleural * There is no pericardial effusion. MMode 2D Measurements and Calculations IVSd 1.2 cm IVSs 1.8 cm LVIDd 3.7 cm LVIDs 2.1 cm LVPWd 1.2 cm LVPWs 1.6 cm IVS/LVPW 0.97 FS 42.5 % EDV(Teich) 56.8 ml ESV(Teich) 14.6 ml EF(Teich) 74.4 % EDV(cubed) 49.3 ml ESV(cubed) 9.4 ml EF(cubed) 80.9 % % IVS thick 49.4 % % LVPW thick 28.8 % LV mass(C)d 146.6 grams LV mass(C)dI 60.9 grams/m\S\2 LV mass(C)s 128.5 grams LV mass(C)sI 53.4 grams/m\S\2 SV(Teich) 42.3 ml SI(Teich) 17.6 ml/m\S\2 SV(cubed) 39.9 ml SI(cubed) 16.6 ml/m\S\2 EPSS 0.86 cm Ao root diam 3.2 cm Ao root area 7.9 cm\S\2 ACS 1.8 cm LA dimension 4.4 cm asc Aorta Diam 3.2 cm LA/Ao 1.4 LVOT diam 2.0 cm LVOT area 3.2 cm\S\2 LVAd ap4 26.3 cm\S\2 LVLd ap4 7.9 cm EDV(MOD-sp4) 71.0 ml LVAs ap4 13.9 cm\S\2 LVLs ap4 6.5 cm ESV(MOD-sp4) 24.0 ml EF(MOD-sp4) 66.2 % LVAd ap2 25.3 cm\S\2 LVLd ap2 7.7 cm EDV(MOD-sp2) 68.0 ml LVAs ap2 11.4 cm\S\2 LVLs ap2 5.5 cm ESV(MOD-sp2) 21.0 ml EF(MOD-sp2) 69.1 % SV(MOD-sp4) 47.0 ml SI(MOD-sp4) 19.5 ml/m\S\2 SV(MOD-sp2) 47.0 ml SI(MOD-sp2) 19.5 ml/m\S\2 Doppler Measurements and Calculations MV E max leonor 150.5 cm/sec MV A max leonor 138.2 cm/sec MV E/A 1.1 MV dec time 0.19 sec Ao V2 max 185.8 cm/sec Ao max PG 13.8 mmHg Ao max PG (full) 7.2 mmHg SAMIRA(V,A) 2.2 cm\S\2 SAMIRA(V,D) 2.2 cm\S\2 LV V1 max PG 6.6 mmHg LV V1 max 128.3 cm/sec PA V2 max 144.5 cm/sec PA max PG 8.4 mmHg TR max leonor 281.1 cm/sec
--- NOTE | 2016-05-11 11:51 | Clinical Documentation Query ---
CLINICAL DOCUMENTATION QUERY Dr. GOMEZ, In your clinical opinion is this patient being managed for: ( x ) Acute diastolic CHF ( ) Other explanation of clinical findings (Please Explain) ( ) Unable to determine (Please Define) ( ) Need to Discuss ( ) Not Agree The medical record reflects the following clinical findings, treatment, and risk factors. Clinical Indicators: 65 yo female presenting with open L ankle fracture requiring ORIF. Progress notes on 05/08 indicate pt hypoxic likely related to pulmonary edema. CXR showed Interval development of mild interstitial edema. Subsequent progress note on 05/10 indicates pt with suspected unknown type CHF. Treatment: stopped IV fluids, IV lasix, O2 support, [facility], ECHO showed EF >70% with grade II diastolic dysfunction Risk Factors: morbid obesity, DM, HTN, Please clarify and document your clinical opinion in the progress notes and discharge summary. Terms such as "probable", "suspected", "likely", "questionable", "possible", or "still to be ruled out" are acceptable. IF IN AGREEMENT, YOU MUST DOCUMENT ABOVE DIAGNOSTIC STATEMENT IN DAILY PROGRESS NOTES AND DISCHARGE SUMMARY. This document is not part of the patient's record. Thank You, Kala Rosas, ELISHA [phone]
[2016-05-11] MEDS: TRAMADOL HCL 50 MG TAB PO PRN ×2 (12:06→20:41)
[2016-05-11] MEDS ORDERED: FUROSEMIDE INJ 40 MG in SYRINGE 0 ML IV ONE (12:45)
--- NOTE | 2016-05-11 13:17 | Hospitalist Progress Note ---
Hospitalist Progress Note Date of Service May 11, 2016. Subjective Pt evaluation today including: conversation w/ patient, physical exam, chart review, lab review, review of studies, conversation w/ database consultant (Pulmonology) , review of inpatient medication list PO Intake: orin po Pt still feeling like something is "off." Reports feeling that way plus some ABDI with her usual activities for the 2 weeks prior to admission, also felt some chest heaviness prior to admission. SHe had right foot swelling and pain just prior as well and thought it was gout, but then that resolved before her fall/injury. ECHO results reviewed with her and CT chest results reviewed as well. No current chest pain. Remains hypoxic on O2 Constitutional: No fever Respiratory: + dyspnea on exertion Cardiovascular: No chest pain Abdomen: No nausea, No pain Musculoskeletal: + problem reported (left ankle pain) Skin: No rash All Other Systems: Reviewed and Negative Objective Vital Signs Date Time Temp Pulse Resp B/P Pulse Ox O2 Delivery O2 Flow Rate FiO2 05/11/16 12:16 36.6 86 18 151/73 95 Nasal Cannula 2.0 05/11/16 11:45 Nasal Cannula 4.0 05/11/16 10:34 84 16 95 Nasal Cannula 4.0 05/11/16 08:10 97 Nasal Cannula 4.0 05/11/16 07:49 36.6 77 18 152/87 97 Nasal Cannula 05/11/16 07:02 80 19 95 Nasal Cannula 4.0 05/11/16 04:08 Nasal Cannula 4.0 05/11/16 03:45 36.6 76 18 155/77 96 Nasal Cannula 4.0 05/11/16 00:03 Nasal Cannula 4.0 05/10/16 23:41 36.6 84 19 153/79 94 Nasal Cannula 4.0 05/10/16 20:06 Nasal Cannula 4.0 05/10/16 19:59 37.4 80 20 130/73 95 BiPAP 05/10/16 19:32 70 18 95 BiPAP/CPAP 4.0 05/10/16 16:02 37.2 88 22 147/80 93 Nasal Cannula 4.0 05/10/16 16:00 Nasal Cannula 4.0 05/10/16 14:26 70 18 95 Nasal Cannula 4.0 Physical Exam General Appearance: WD/WN, no apparent distress, + obese Eyes: normal inspection, EOMI, sclerae normal ENT: hearing grossly normal Neck: no adenopathy, thyroid normal, trachea midline Respiratory/Chest: lungs clear, normal breath sounds, no respiratory distress, no accessory muscle use Cardiovascular: regular rate, rhythm, no gallop, no JVD, no murmur, + pertinent finding (trace pitting edema right leg, left leg with splint/dressing in place and not removed) Abdomen: normal bowel sounds, non tender, soft, + pertinent finding (obese) Extremities: no calf tenderness (on right), + pertinent finding (left leg in splint not removed, left toes wih intact sensation and good cap refill, able to wiggle toes) Neurologic/Psychiatric: alert, normal mood/affect, oriented x 3 Skin: normal color, warm/dry, no rash Laboratory Results Last 24 Hours Test 05/10/16 16:27 05/10/16 20:31 05/11/16 06:22 05/11/16 07:55 Bedside Glucose 171 mg/dl 170 mg/dl 167 mg/dl Arterial Blood pH 7.47 Arterial Blood Partial Pressure CO2 43 mmHg Arterial Blood Partial Pressure O2 77 mm/Hg Arterial Blood HCO3 30 mmol/L Arterial Blood Oxygen Saturation 95.2 % Arterial Blood Base Excess 5.8 mEq/L Arterial Blood Gas Delivery 4L Alvaro Test POS Test 05/11/16 08:05 05/11/16 10:58 White Blood Count 4.71 K/uL Red Blood Count 3.13 M/uL Hemoglobin 9.4 g/dL Hematocrit 28.1 % Mean Corpuscular Volume 89.8 fL Mean Corpuscular Hemoglobin 30.0 pg Mean Corpuscular Hemoglobin Concent 33.5 g/dl RDW Standard Deviation 46.8 fL RDW Coefficient of Variation 14.3 % Platelet Count 187 K/uL Mean Platelet Volume 10.0 fL Sodium Level 142 mmol/L Potassium Level 3.8 mmol/L Chloride Level 105 mmol/L Carbon Dioxide Level 27 mmol/L Anion Gap 10.0 mmol/L Blood Urea Nitrogen 12 mg/dl Creatinine 0.80 mg/dl Est Creatinine Clear Calc Drug Dose 101.6 ml/min Estimated GFR () 90.3 Estimated GFR (Non- 77.9 BUN/Creatinine Ratio 14.5 Random Glucose 196 mg/dl Calcium Level 8.7 mg/dl Bedside Glucose 237 mg/dl Assessment and Plan A 65 y/o female with a history of DM II, neuralgia, HTN, depression and anxiety who presented to the ED on 05/06 with ankle pain following a mechanical fall. X- rays reveal comminuted compound oblique fracture of distal fibula with lateral dislocation of talus with respect to tibia. Bleeding controlled. Pt afebrile, VSS. Ankle reduced and splinted in ED, post reduction films show significantly improved alignment of fracture. Patient admitted to med/surg by orthopedics for surgical correction. Medicine consulted for pre-operative evaluation and continued management of post-op acute hypoxemic respiratory failure Distal tibia fx s/p surgical correction Pain management, DVT prophylaxis with ASA 81 bid, and PT/OT as per primary team- -> ok to reevaluate with PT/OT today EKG 75 bpm, NSR Initial CXR was normal -needs f/u with Ortho either in house on Wed or as outpt on /Wed this week Mixed acute hypoxemic and hypercarbic respiratory failure-had significant hypoxia to the low 70s on POD#2: CTA CHest with no PE but nondiagnostic for most of right sided vessels. Now with pulm edema on CXR, ECHO with acute on chronic diastolic CHF and mild elevation in right sided RSVP. Pulm consult appreciated--> suspected sleep apnea in the setting of opioids use, with pulmonary edema. However initially thought that couldn't rule out infectious/ inflammatory process, also with possible malignancy on CT scan chest (reviewed) . ABGs reviewed with Pulm today, suggestive of possible shunt Overnight oximetry suggestive of KAITY TSH normal -diurese again with IV lasix 40mg x 1 today given pulm edema and acute on likely chronic diastolic CHF -plan to start daily po lasix 40mg tomorrow -as per d/w Pulm, check V/Q scan today to look for PE or chronic VTED -may need right heart cath if V/Q unrevealing -d/c empiric IV cefepime and IV vancomycin as no evidence of PNA -appreciated pulm input -BIPAP / as tolerated as per pulm, may need sleep study or nocturnal pulse ox when stable -avoid benzos and opioid narcotics Acute on chronic diastolic CHF-seen on ECHO, elevated BNP and pulm edema on CXR bnp 1538 -IV lasix today as above -po lasix tomorrow Diabetes mellitus type 2--last HgbA1c checked 01/30/16 was 6.3. Pt takes 20 units Lantus qam Hold metformin Lantus 16 units SC qam continue Insulin sliding scale check BSGs q ac and qhs rechecked HgbA1c 05/06 was 6.7 Neuralgia Continue Lyrica 75 mg PO TID HTN, stable losartan 50 mg PO BID verapamil 240 mg PO BID given a dose of po clonidine -starting lasix Depression with anxiety Continue sertraline 100 mg PO qd Code Status Level I, FULL RESUSCITATION STATUS Dispo Pt now agreeable to acute rehab as she will have difficulty navigating her home with a walker. Referral sent to [facility], pt accepted, however needs to stabilize before considered for d/c, patient is transferred to hospitalist services due to complex medical problems
--- NOTE | 2016-05-11 16:24 | DIAGNOSTIC IMAGING REPORT ---
NUCLEAR MEDICINE VENTILATION/PERFUSION SCAN HISTORY: persistent hypoxia post-op, CTA nondiagnostic partially TECHNIQUE: 32.1 mCi of technetium 99 M DTPA were inhaled for the ventilation scan and 5.3 mCi of technetium 99 M MAA were intravenously injected for the perfusion scan. Anterior, posterior, oblique, and lateral views the chest were immediately performed for the administration of radiotracer. COMPARISON STUDY: Chest 05/10/2016. FINDINGS: Cardiac silhouette is mildly enlarged. There is slight blunting of the bilateral costophrenic sulci. However, there are no perfusion or ventilation defects identified. IMPRESSION: Above findings are consistent with a very low probability scan. Electronically signed by: Delonte Bean M.D. 05/11/2016 4:22 PM Dictated Date/Time: 05/11/2016 4:20 PM
--- NOTE | 2016-05-11 18:00 | Pulmonology Progress Note ---
Pulmonary Progress Note Date of Service May 11, 2016. Attending Edson Arshad Subjective Patient with some mild shortness of breath unable to ambulate because of fractured patella during transfers does note dyspnea Objective Stable on 4 L nasal cannula Patient was able to complete full sentences showing no signs of increased work of breathing during our conversation Vital signs: Reviewed FiO2: 4 L BiPAP: Respiratory: Minimal crackles appreciated at the bases bilaterally Cardiac: Distant heart sounds S1 and S2 Extremities: Right lower extremity 3+ pitting edema VQ scan 05/11/2016: Low probability study Chest x-ray 05/10/2016: Bilateral hilar fullness, parabronchial cuffing, bilateral cephalization, mildly elevated right hemidiaphragm-most likely expiratory film (not seen on 05/08/16 Chest x-ray 05/06/16: Mildly elevated right hemidiaphragm minimal bilateral hilar fullness CT thorax 05/08/16: Enlarged vessels bilaterally with crazy paving, and large subcarinal station 7 infiltrate Hounsfield units ranging from low teens to mid 60s. oThis is a dramatic changes compared to the patients previous CT of the chest Echocardiogram 05/10/16 oLV: Mild concentric LVH, diastolic dysfunction grade II, EF=>70% Ca: Mild dilation oMinimal aortic stenosis oTrace tricuspid regurgitation Radha ASD detected/PFO not assessed oRSVP:30-40mmHg Assessment & Plan 65-year-old female with obesity hypoventilation syndrome and diastolic heart failure: #1 Hypoxia: Hypoxia most likely combination of obesity hypoventilation syndrome with diastolic heart dysfunction. This time CT angiogram and VQ scan showed no signs of pulmonary emboli either chronic or acute. The CT angiogram plus the echocardiogram do suggest signs of volume overload with diastolic dysfunction. I suggest that this time would continue to treat with aggressive diuresis and BiPAP: #2 KAITY/obesity hypoventilation: Initially patient's PaCO2 was greater than 45 PaO2 less than 70 and body mass index greater than 30. All these would be consistent with obesity hypoventilation syndrome and is she's been treated with BiPAP she has noted clinical improvement. #3 CHF: Patient high likelihood of having diastolic dysfunction agree with plan of current diuresis. Data Medications: Current Inpatient Medications Medications (Trade) Dose Ordered Sig/Marni Route Start Time Stop Time Status Last Admin Dose Admin Pregabalin (Lyrica Cap) 75 mg TID PO 05/06/16 14:00 06/05/16 13:59 05/11/16 13:18 75 MG Sertraline HCl (Zoloft Tab) 100 mg DAILY PO 05/07/16 09:00 06/06/16 08:59 05/11/16 08:18 100 MG Verapamil HCl (Calan-Sr Tab) 240 mg BID PO 05/06/16 21:00 06/05/16 20:59 05/11/16 08:19 240 MG Insulin Glargine (Lantus Solostar Pen) 16 unit QAM SC 05/07/16 09:00 06/06/16 08:59 05/11/16 09:00 16 UNIT Glucose (Glucose 40% Gel) 15-30 GRAMS 15 GRAMS... UD PRN PO 05/06/16 09:15 06/05/16 09:14 Glucose (Glucose Chew Tab) 4-8 Tablets 4 Tabl... UD PRN PO 05/06/16 09:15 06/05/16 09:14 Dextrose (Dextrose 50% 50ML Syringe) 25-50ML OF 50% DW IV FOR... UD PRN IV 05/06/16 09:15 06/05/16 09:14 Glucagon (Glucagon Inj) 1 mg UD PRN SQ 05/06/16 09:15 06/05/16 09:14 Hydralazine HCl (HydrALAZINE INJ) 10 mg Q6H PRN IV. 05/06/16 09:15 06/05/16 09:14 05/10/16 11:08 10 MG Cholecalciferol (Vitamin D Tab) 1,000 inter.unit DAILY PO 05/07/16 09:00 06/06/16 08:59 05/11/16 08:20 1,000 INTER.UNIT Losartan Potassium (coZAAR TAB) 50 mg BID PO 05/06/16 21:00 06/05/16 20:59 05/11/16 08:19 50 MG Multivitamins/ Minerals (Multivitamin W/ Minerals Tab) 1 tab DAILY PO 05/07/16 09:00 06/06/16 08:59 05/11/16 08:18 1 TAB Cyanocobalamin (Vitamin B-12 Tab) 1,000 mcg DAILY PO 05/07/16 09:00 06/06/16 08:59 05/11/16 08:18 1,000 MCG Estradiol (Estrace Vag Cream 0.01% 42.5 Gm) 1 appln [id number] PV 05/06/16 13:15 06/05/16 13:14 Acetaminophen (Tylenol Tab) 1,000 mg Q8 PO 05/06/16 14:00 06/05/16 13:59 05/11/16 13:16 1,000 MG Magnesium Hydroxide (Milk Of Magnesia Susp) 30 ml Q6H PRN PO 05/06/16 13:15 06/05/16 13:14 Bisacodyl (Dulcolax Supp) 10 mg DAILY PRN LA 05/06/16 13:15 06/05/16 13:14 Sodium Biphosphate/ Sodium Phosphate (Fleet Enema) 132 ml DAILY PRN LA 05/06/16 13:15 06/05/16 13:14 Diphenhydramine HCl (Benadryl Cap) 25 mg Q8H PRN PO 05/06/16 13:15 06/05/16 13:14 Multivitamins (Multivitamin Tab) 1 tab QAM PO 05/07/16 09:00 06/06/16 08:59 05/11/16 08:20 1 TAB Ondansetron HCl (Zofran Inj) 4 mg Q6H PRN IV 05/06/16 13:15 06/05/16 13:14 05/07/16 17:22 4 MG Pantoprazole Sodium (Protonix Tab) 40 mg QAM PO 05/07/16 09:00 06/06/16 08:59 05/11/16 08:21 40 MG Aspirin (Ecotrin Tab) 81 mg BID PO 05/06/16 21:00 06/05/16 20:59 05/11/16 08:18 81 MG Insulin Aspart (novoLOG ASPART) SLIDING SCALE G... ACHS SC 05/06/16 16:00 06/05/16 15:59 05/11/16 12:11 9 UNITS Tramadol HCl (Ultram Tab) as above Q4H PRN PO 05/08/16 09:00 06/07/16 08:59 Future hold 05/11/16 12:06 50 MG Ioversol (Optiray 320) 100 ml UD PRN IV 05/08/16 16:45 05/12/16 16:44 Polyethylene (Miralax Powder Packet) 17 gm DAILY PO 05/10/16 09:30 06/09/16 09:29 05/11/16 08:20 17 GM Albuterol/ Ipratropium (Duoneb) 3 ml QIDR INH 05/10/16 12:00 06/09/16 11:59 05/11/16 10:34 3 ML I & O: 24-Hour Column 05/11/16 08:00 Intake Total 1615 ml Output Total 2200 ml Balance -585 ml Vital Signs: Date Time Temp Pulse Resp B/P Pulse Ox O2 Delivery O2 Flow Rate FiO2 05/11/16 16:26 36.5 78 16 161/80 96 Room Air 05/11/16 16:20 Nasal Cannula 4.0 05/11/16 14:01 86 98 05/11/16 12:16 36.6 86 18 151/73 95 Nasal Cannula 2.0 05/11/16 11:45 Nasal Cannula 4.0 05/11/16 10:34 84 16 95 Nasal Cannula 4.0 05/11/16 08:10 97 Nasal Cannula 4.0 05/11/16 07:49 36.6 77 18 152/87 97 Nasal Cannula 05/11/16 07:02 80 19 95 Nasal Cannula 4.0 05/11/16 04:08 Nasal Cannula 4.0 05/11/16 03:45 36.6 76 18 155/77 96 Nasal Cannula 4.0 05/11/16 00:03 Nasal Cannula 4.0 05/10/16 23:41 36.6 84 19 153/79 94 Nasal Cannula 4.0 05/10/16 20:06 Nasal Cannula 4.0 05/10/16 19:59 37.4 80 20 130/73 95 BiPAP 05/10/16 19:32 70 18 95 BiPAP/CPAP 4.0 Laboratory Results: Last 24 Hours Test 05/10/16 20:31 05/11/16 06:22 05/11/16 07:55 05/11/16 08:05 Bedside Glucose 170 mg/dl 167 mg/dl Arterial Blood pH 7.47 Arterial Blood Partial Pressure CO2 43 mmHg Arterial Blood Partial Pressure O2 77 mm/Hg Arterial Blood HCO3 30 mmol/L Arterial Blood Oxygen Saturation 95.2 % Arterial Blood Base Excess 5.8 mEq/L Arterial Blood Gas Delivery 4L Alvaro Test POS White Blood Count 4.71 K/uL Red Blood Count 3.13 M/uL Hemoglobin 9.4 g/dL Hematocrit 28.1 % Mean Corpuscular Volume 89.8 fL Mean Corpuscular Hemoglobin 30.0 pg Mean Corpuscular Hemoglobin Concent 33.5 g/dl RDW Standard Deviation 46.8 fL RDW Coefficient of Variation 14.3 % Platelet Count 187 K/uL Mean Platelet Volume 10.0 fL Sodium Level 142 mmol/L Potassium Level 3.8 mmol/L Chloride Level 105 mmol/L Carbon Dioxide Level 27 mmol/L Anion Gap 10.0 mmol/L Blood Urea Nitrogen 12 mg/dl Creatinine 0.80 mg/dl Est Creatinine Clear Calc Drug Dose 101.6 ml/min Estimated GFR () 90.3 Estimated GFR (Non- 77.9 BUN/Creatinine Ratio 14.5 Random Glucose 196 mg/dl Calcium Level 8.7 mg/dl Test 05/11/16 10:58 05/11/16 16:19 Bedside Glucose 237 mg/dl 118 mg/dl
[2016-05-12] VITALS (14 sets, daily range): BP systolic 124–166; BP diastolic 55–109; PULSE 70–91; TEMP 36.6–37; O2SAT 92–98; Ht 170.2 cm; Wt 134.7 kg
[2016-05-12] MEDS: ACETAMINOPHEN 500 MG TAB PO SCH ×3 (05:42→21:37)
[2016-05-12 06:32] LABS: BASO % 0.5 %; BASO ABS # 0.02 K/uL (0-0.2); COMPLETE YES; HEMATOCRIT 27.9 % (37-47); IG% 0.2 %; LYMPH % 29.8 %; LYMPH ABS # 1.24 K/uL (1.2-3.4); MEAN CELL VOLUME 89.1 fL (80-100); MEAN CORPUSCULAR HEMOGLOBIN 29.7 pg (25-34); MEAN CORPUSCULAR HGB CONC 33.3 g/dl (32-36); MEAN PLATELET VOLUME 9.9 fL (7.4-10.4); MONO % 9.6 %; NEUT % 58.9 %; PLATELET COUNT 207 K/uL (130-400); RED BLOOD COUNT 3.13 M/uL (4.2-5.4); WHITE BLOOD COUNT 4.16 K/uL (4.8-10.8)
[2016-05-12 07:00] LABS: BUN/CREATININE RATIO 15.1 (10-20); CALCIUM 8.8 mg/dl (8.5-10.1); CREATININE 0.83 mg/dl (0.60-1.20); MAGNESIUM 2.2 mg/dl (1.8-2.4); POTASSIUM 3.7 mmol/L (3.5-5.1)
[2016-05-12] MEDS: ALBUT/IPRATROP 3MG/0.5MG NEB 3 ML VIAL INH SCH ×4 (07:07→21:04)
[2016-05-12] MEDS ORDERED: FUROSEMIDE INJ 40 MG in SYRINGE 0 ML IV ONE (07:45)
[2016-05-12] MEDS: INSULIN ASPART 100 UNITS/ML 3 ML PEN SC SCH ×4 (08:11→21:36)
[2016-05-12] MEDS: INSULIN GLARGINE SOLOSTAR 100 UNITS/ML 3 ML PEN SC SCH (08:12)
[2016-05-12] MEDS: TRAMADOL HCL 50 MG TAB PO PRN ×2 (08:18→18:07)
[2016-05-12] MEDS: VERAPAMIL HCL 240 MG TABCR PO SCH ×2 (08:19→21:34)
[2016-05-12] MEDS: SERTRALINE HCL 100 MG TAB PO SCH (08:19)
[2016-05-12] MEDS: CEROVITE ADV FORMULA TAB PO SCH (08:19)
[2016-05-12] MEDS: CYANOCOBALAMIN 500 MCG TAB (VIT B-12) PO SCH (08:19)
[2016-05-12] MEDS: ASPIRIN 81 MG ECTAB PO SCH ×2 (08:20→21:33)
[2016-05-12] MEDS: LOSARTAN POTASSIUM 50 MG TAB PO SCH ×2 (08:20→21:35)
[2016-05-12] MEDS: POLYETHYLENE (MIRALAX) 17 GM PACK PO SCH (08:20)
[2016-05-12] MEDS: PANTOprazole SOD 40 MG TAB PO SCH (08:21)
[2016-05-12] MEDS: MULTIVITAMIN TAB PO SCH (08:21)
[2016-05-12] MEDS: CHOLECALCIFEROL 1000 INTER.UNIT TAB PO SCH (08:21)
[2016-05-12] MEDS: PREGABALIN 75 MG CAP PO SCH ×2 (08:26→14:50)
--- NOTE | 2016-05-12 11:10 | Pulmonology Progress Note ---
Pulmonary Progress Note Date of Service May 12, 2016. Attending Edson Arshad Subjective Patient's energy level has much improved and she notes decreased shortness of breath. Objective Patient showed no signs of increased work of breathing during our conversation and she was noted to be on 2 L nasal cannula at that time Vital signs: Reviewed FiO2: 2-4 L(SaO2 ranging from 95-98%) I/O: 2 L negative over the last 48 hours BiPAP: 12/6 Respiratory: Minimal crackles appreciated at the bases bilaterally Cardiac: Distant heart sounds S1 and S2 Extremities: Right lower extremity 1+ pitting edema Nocturnal desaturation study performed: Lung discontiguous time with SaO2 less than 80% was 18 minutes. BiPAP set up at IPAP:12 /EPAP: 6 with 4 L O2 support Assessment & Plan 65-year-old female with obesity hypoventilation syndrome and diastolic heart failure: #1 Hypoxia: Hypoxia slowly improving with aggressive diuresis and treatment for obesity hypoventilation syndrome with BiPAP 12/6. At this time we are slowly titrating down to 2 L nasal cannula and maintaining her sats in the mid to upper 90s. #2 KAITY/obesity hypoventilation: Nocturnal desaturation study, clinical history , physical exam and serum studies consistent with obesity hypoventilation syndrome. Patient will require continue nocturnal BiPAP treatment. Patient will also require follow-up with Dr. Adam Dominguez of the pulmonary/sleep clinic Department. #3 CHF: Patient high likelihood of having diastolic dysfunction agree with plan of current diuresis. Data Medications: Current Inpatient Medications Medications (Trade) Dose Ordered Sig/Marni Route Start Time Stop Time Status Last Admin Dose Admin Pregabalin (Lyrica Cap) 75 mg TID PO 05/06/16 14:00 06/05/16 13:59 05/12/16 08:26 75 MG Sertraline HCl (Zoloft Tab) 100 mg DAILY PO 05/07/16 09:00 06/06/16 08:59 05/12/16 08:19 100 MG Verapamil HCl (Calan-Sr Tab) 240 mg BID PO 05/06/16 21:00 06/05/16 20:59 05/12/16 08:19 240 MG Insulin Glargine (Lantus Solostar Pen) 16 unit QAM SC 05/07/16 09:00 06/06/16 08:59 05/12/16 08:12 16 UNIT Glucose (Glucose 40% Gel) 15-30 GRAMS 15 GRAMS... UD PRN PO 05/06/16 09:15 06/05/16 09:14 Glucose (Glucose Chew Tab) 4-8 Tablets 4 Tabl... UD PRN PO 05/06/16 09:15 06/05/16 09:14 Dextrose (Dextrose 50% 50ML Syringe) 25-50ML OF 50% DW IV FOR... UD PRN IV 05/06/16 09:15 06/05/16 09:14 Glucagon (Glucagon Inj) 1 mg UD PRN SQ 05/06/16 09:15 06/05/16 09:14 Hydralazine HCl (HydrALAZINE INJ) 10 mg Q6H PRN IV. 05/06/16 09:15 06/05/16 09:14 05/10/16 11:08 10 MG Cholecalciferol (Vitamin D Tab) 1,000 inter.unit DAILY PO 05/07/16 09:00 06/06/16 08:59 05/12/16 08:21 1,000 INTER.UNIT Losartan Potassium (coZAAR TAB) 50 mg BID PO 05/06/16 21:00 06/05/16 20:59 05/12/16 08:20 50 MG Multivitamins/ Minerals (Multivitamin W/ Minerals Tab) 1 tab DAILY PO 05/07/16 09:00 06/06/16 08:59 05/12/16 08:19 1 TAB Cyanocobalamin (Vitamin B-12 Tab) 1,000 mcg DAILY PO 05/07/16 09:00 06/06/16 08:59 05/12/16 08:19 1,000 MCG Estradiol (Estrace Vag Cream 0.01% 42.5 Gm) 1 appln [id number] PV 05/06/16 13:15 06/05/16 13:14 Acetaminophen (Tylenol Tab) 1,000 mg Q8 PO 05/06/16 14:00 06/05/16 13:59 05/12/16 05:42 1,000 MG Magnesium Hydroxide (Milk Of Magnesia Susp) 30 ml Q6H PRN PO 05/06/16 13:15 06/05/16 13:14 05/12/16 08:23 30 ML Bisacodyl (Dulcolax Supp) 10 mg DAILY PRN [place] 1/25/17 13:15 06/05/16 13:14 Sodium Biphosphate/ Sodium Phosphate (Fleet Enema) 132 ml DAILY PRN [place] 05/06/16 13:15 06/05/16 13:14 Diphenhydramine HCl (Benadryl Cap) 25 mg Q8H PRN PO 05/06/16 13:15 06/05/16 13:14 Multivitamins (Multivitamin Tab) 1 tab QAM PO 05/07/16 09:00 06/06/16 08:59 05/12/16 08:21 1 TAB Ondansetron HCl (Zofran Inj) 4 mg Q6H PRN IV 05/06/16 13:15 06/05/16 13:14 05/07/16 17:22 4 MG Pantoprazole Sodium (Protonix Tab) 40 mg QAM PO 05/07/16 09:00 06/06/16 08:59 05/12/16 08:21 40 MG Aspirin (Ecotrin Tab) 81 mg BID PO 05/06/16 21:00 06/05/16 20:59 05/12/16 08:20 81 MG Insulin Aspart (novoLOG ASPART) SLIDING SCALE G... ACHS SC 05/06/16 16:00 06/05/16 15:59 05/12/16 08:11 5 UNITS Tramadol HCl (Ultram Tab) as above Q4H PRN PO 05/08/16 09:00 06/07/16 08:59 Future hold 05/12/16 08:18 100 MG Ioversol (Optiray 320) 100 ml UD PRN IV 05/08/16 16:45 05/12/16 16:44 Polyethylene (Miralax Powder Packet) 17 gm DAILY PO 05/10/16 09:30 06/09/16 09:29 05/12/16 08:20 17 GM Albuterol/ Ipratropium (Duoneb) 3 ml QIDR INH 05/10/16 12:00 06/09/16 11:59 05/12/16 07:07 3 ML I & O: 24-Hour Column 05/12/16 08:00 Intake Total 875 ml Output Total 2450 ml Balance -1575 ml Vital Signs: Date Time Temp Pulse Resp B/P Pulse Ox O2 Delivery O2 Flow Rate FiO2 05/12/16 08:36 36.9 77 18 144/109 96 Nasal Cannula 162/77 05/12/16 08:00 95 Nasal Cannula 2.0 05/12/16 07:07 73 18 98 Nasal Cannula 4.0 05/12/16 04:00 CPAP 4.0 05/12/16 03:51 36.8 70 19 127/68 98 CPAP 05/12/16 00:00 CPAP 4.0 05/11/16 23:53 36.6 78 19 141/72 97 CPAP 05/11/16 22:11 82 96 4.0 05/11/16 20:00 Nasal Cannula 4.0 05/11/16 19:50 80 18 98 Nasal Cannula 4.0 05/11/16 19:42 36.6 78 20 130/82 98 4.0 05/11/16 16:26 36.5 78 16 161/80 96 Room Air 05/11/16 16:20 Nasal Cannula 4.0 05/11/16 14:01 86 98 05/11/16 12:16 36.6 86 18 151/73 95 Nasal Cannula 2.0 05/11/16 11:45 Nasal Cannula 4.0 Laboratory Results: Last 24 Hours Test 05/11/16 16:19 05/11/16 20:26 05/12/16 05:35 05/12/16 05:38 Bedside Glucose 118 mg/dl 148 mg/dl Sodium Level 142 mmol/L Potassium Level 3.7 mmol/L Chloride Level 102 mmol/L Carbon Dioxide Level 31 mmol/L Anion Gap 9.0 mmol/L Blood Urea Nitrogen 13 mg/dl Creatinine 0.83 mg/dl Est Creatinine Clear Calc Drug Dose 98.2 ml/min Estimated GFR () 86.4 Estimated GFR (Non- 74.5 BUN/Creatinine Ratio 15.1 Random Glucose 142 mg/dl Calcium Level 8.8 mg/dl Magnesium Level 2.2 mg/dl White Blood Count 4.16 K/uL Red Blood Count 3.13 M/uL Hemoglobin 9.3 g/dL Hematocrit 27.9 % Mean Corpuscular Volume 89.1 fL Mean Corpuscular Hemoglobin 29.7 pg Mean Corpuscular Hemoglobin Concent 33.3 g/dl Platelet Count 207 K/uL Mean Platelet Volume 9.9 fL Neutrophils (%) (Auto) 58.9 % Lymphocytes (%) (Auto) 29.8 % Monocytes (%) (Auto) 9.6 % Eosinophils (%) (Auto) 1.0 % Basophils (%) (Auto) 0.5 % Neutrophils # (Auto) 2.45 K/uL Lymphocytes # (Auto) 1.24 K/uL Monocytes # (Auto) 0.40 K/uL Eosinophils # (Auto) 0.04 K/uL Basophils # (Auto) 0.02 K/uL RDW Standard Deviation 46.8 fL RDW Coefficient of Variation 14.5 % Immature Granulocyte % (Auto) 0.2 % Immature Granulocyte # (Auto) 0.01 K/uL Test 05/12/16 07:03 Bedside Glucose 170 mg/dl
--- NOTE | 2016-05-12 16:48 | Hospitalist Progress Note ---
Hospitalist Progress Note Date of Service May 12, 2016. Subjective Pt evaluation today including: conversation w/ patient, physical exam, chart review, lab review, review of studies, conversation w/ [employer] consultant (Pulm, Ortho) , review of inpatient medication list PO Intake: orin po Voiding: no voiding problems Pt feeling much better, is weaned totally off O2, has diuresed 2L in the last 1- 2 days. Participating in PT and ready for dc to rehab tomorrow. Constitutional: No fever Respiratory: No dyspnea on exertion, No shortness of breath Cardiovascular: No chest pain Abdomen: No pain Musculoskeletal: + joint pain (left ankle) All Other Systems: Reviewed and Negative Objective Vital Signs Date Time Temp Pulse Resp B/P Pulse Ox O2 Delivery O2 Flow Rate FiO2 05/12/16 16:00 95 Nasal Cannula 2.0 05/12/16 15:56 91 94 05/12/16 14:13 72 18 93 Nasal Cannula 3.0 05/12/16 12:33 36.6 82 18 139/71 97 Nasal Cannula 2.0 05/12/16 12:00 95 Nasal Cannula 2.0 05/12/16 08:36 36.9 77 18 144/109 96 Nasal Cannula 162/77 05/12/16 08:00 95 Nasal Cannula 2.0 05/12/16 07:07 73 18 98 Nasal Cannula 4.0 05/12/16 04:00 CPAP 4.0 05/12/16 03:51 36.8 70 19 127/68 98 CPAP 05/12/16 00:00 CPAP 4.0 05/11/16 23:53 36.6 78 19 141/72 97 CPAP 05/11/16 22:11 82 96 4.0 05/11/16 20:00 Nasal Cannula 4.0 05/11/16 19:50 80 18 98 Nasal Cannula 4.0 05/11/16 19:42 36.6 78 20 130/82 98 4.0 Physical Exam General Appearance: WD/WN, no apparent distress, + obese Eyes: normal inspection, sclerae normal ENT: hearing grossly normal Neck: trachea midline Respiratory/Chest: lungs clear, normal breath sounds, no respiratory distress, no accessory muscle use Cardiovascular: regular rate, rhythm, no edema, no gallop, no murmur Abdomen: normal bowel sounds, non tender, soft (and obese) Extremities: no calf tenderness (on right), + pertinent finding (left leg in splint and wrap not removed) Neurologic/Psychiatric: alert, normal mood/affect, oriented x 3 Skin: normal color, warm/dry, no rash Laboratory Results Last 24 Hours Test 05/11/16 20:26 05/12/16 05:35 05/12/16 05:38 05/12/16 07:03 Bedside Glucose 148 mg/dl 170 mg/dl Sodium Level 142 mmol/L Potassium Level 3.7 mmol/L Chloride Level 102 mmol/L Carbon Dioxide Level 31 mmol/L Anion Gap 9.0 mmol/L Blood Urea Nitrogen 13 mg/dl Creatinine 0.83 mg/dl Est Creatinine Clear Calc Drug Dose 98.2 ml/min Estimated GFR () 86.4 Estimated GFR (Non- 74.5 BUN/Creatinine Ratio 15.1 Random Glucose 142 mg/dl Calcium Level 8.8 mg/dl Magnesium Level 2.2 mg/dl White Blood Count 4.16 K/uL Red Blood Count 3.13 M/uL Hemoglobin 9.3 g/dL Hematocrit 27.9 % Mean Corpuscular Volume 89.1 fL Mean Corpuscular Hemoglobin 29.7 pg Mean Corpuscular Hemoglobin Concent 33.3 g/dl Platelet Count 207 K/uL Mean Platelet Volume 9.9 fL Neutrophils (%) (Auto) 58.9 % Lymphocytes (%) (Auto) 29.8 % Monocytes (%) (Auto) 9.6 % Eosinophils (%) (Auto) 1.0 % Basophils (%) (Auto) 0.5 % Neutrophils # (Auto) 2.45 K/uL Lymphocytes # (Auto) 1.24 K/uL Monocytes # (Auto) 0.40 K/uL Eosinophils # (Auto) 0.04 K/uL Basophils # (Auto) 0.02 K/uL RDW Standard Deviation 46.8 fL RDW Coefficient of Variation 14.5 % Immature Granulocyte % (Auto) 0.2 % Immature Granulocyte # (Auto) 0.01 K/uL Test 05/12/16 11:37 Bedside Glucose 187 mg/dl Assessment and Plan A 65 y/o female with a history of DM II, neuralgia, HTN, depression and anxiety who presented to the ED on 05/06 with ankle pain following a mechanical fall. X- rays reveal comminuted compound oblique fracture of distal fibula with lateral dislocation of talus with respect to tibia. Bleeding controlled. Pt afebrile, VSS. Ankle reduced and splinted in ED, post reduction films show significantly improved alignment of fracture. Patient admitted to med/surg by orthopedics for surgical correction. Medicine consulted for pre-operative evaluation and continued management of post-op acute hypoxemic respiratory failure Distal tibia compound fx s/p surgical correction Pain management with tramadol, DVT prophylaxis with ASA 81 bid x 30 days, and PT /OT as per Ortho -needs f/u with Ortho tomorrow for wound check and then as an outpatient after that TBD by Ortho Mixed acute hypoxemic and hypercarbic respiratory failure-had significant hypoxia to the low 70s on POD#2: CTA Chest with no PE but nondiagnostic for most of right sided vessels. Was with pulm edema on CXR, ECHO with acute on chronic diastolic CHF and mild elevation in right sided RSVP. Pulm consult appreciated--> suspected sleep apnea in the setting of opioids use, with pulmonary edema. However initially thought that couldn't rule out infectious/ inflammatory process, also with possible malignancy on CT scan chest with soft tissue surrounding right mainstem bronchus and extending into right hilum. CTA Chest: 1. Diffuse interlobular septal thickening and a few patchy ground glass densities within the right upper lobe. This may represent developing pulmonary edema or an atypical interstitial process. 2. Interval development of abnormal soft tissue surrounding the right mainstem bronchus/bronchus intermedius and extending into the right hilum and subcarinal locations. There are few enlarged right peritracheal lymph nodes. This could be reactive to the pulmonary edema/interstitial process. However, a neoplastic process such as lymphoma or a primary bronchogenic malignancy could also have a similar appearance. Bronchoscopy should be performed for further evaluation. At a minimum, one month chest CT follow-up can also be performed to ensure resolution of these findings. 3. No evidence for pulmonary embolus with limitations as described above. 4. No change in the 3 cm left lower pole thyroid nodule. ABGs reviewed with Pulm, suggestive of possible shunt Overnight oximetry confirms dx of KAITY TSH normal V/Q scan performed 05/11 with low probability of PE Has had significant improvement with IV diuresis with lasix--> all hypoxia most likely due to acute on chronic diastolic CHF -diuresed again with IV lasix 40mg x 1 today -plan to start daily po lasix 40mg tomorrow -d/c'd empiric IV cefepime and IV vancomycin as no evidence of PNA -appreciated pulm input -BIPAP 03/17 to be continued at Rehab and then at home -will need outpatient follow up within 2-[address] Adam Dominguez for her KAITY as well as to repeat her Chest CT for abnormal soft tissue density right mainstem bronchus Acute on chronic diastolic CHF-seen on ECHO, elevated BNP and pulm edema on CXR bnp 1538 -IV lasix today as above -po lasix tomorrow to be continued indefinitely Diabetes mellitus type 2-- HgbA1c 05/06 was 6.7. Pt takes 20 units Lantus qam at home Hold metformin here and restart upon discharge Lantus 16 units SC qam while here continue Insulin sliding scale check BSGs q ac and qhs Neuralgia Continue Lyrica 75 mg qAM and 150 qhs HTN-stable losartan 50 mg PO BID verapamil 240 mg PO BID -starting lasix Depression with anxiety Continue sertraline 100 mg PO qd Code Status Level I, FULL RESUSCITATION STATUS Dispo to acute rehab tomorrow
[2016-05-13] MEDS: TRAMADOL HCL 50 MG TAB PO PRN (03:35)
[2016-05-13] MEDS: ACETAMINOPHEN 500 MG TAB PO SCH ×2 (05:33→13:15)
[2016-05-13 06:15] LABS: CALCIUM 8.7 mg/dl (8.5-10.1); CREATININE 0.93 mg/dl (0.60-1.20); MAGNESIUM 2.3 mg/dl (1.8-2.4)
[2016-05-13 06:58] VITALS: BP 158/83; PULSE 68; TEMP 36.7; O2SAT 91
[2016-05-13 07:51] VITALS: PULSE 83; O2SAT 97
[2016-05-13] MEDS: ALBUT/IPRATROP 3MG/0.5MG NEB 3 ML VIAL INH SCH ×2 (07:51→11:24)
--- NOTE | 2016-05-13 07:57 | Orthopedic Progress Note ---
Orthopedic Progress Note Date of Service May 13, 2016. Subjective Post OP Day: 7 Reports: feeling well, pain controlled w PO medications, Denies: SOB, calf pain , chest pain, complaints, light headedness, nausea / vomiting Additional Notes: post op hypoxemia and acute respiratory failure, stable now and, as per medicine , set to be transferred to rehab today. Objective calves soft nontender, N/V intact, capillary refill less than 2 sec., incision C /D/I, A&O x3, toes mobile Incisions c/d/i, no erythema, no drainage, sutures and skin edges approximated well and in tact. Good distal pulses. Date Time Temp Pulse Resp B/P Pulse Ox O2 Delivery O2 Flow Rate FiO2 05/13/16 07:38 Room Air 05/13/16 06:58 36.7 68 17 158/83 91 Room Air 05/12/16 23:34 36.6 82 18 155/82 92 Room Air 05/12/16 23:15 Room Air 05/12/16 21:41 89 166/82 05/12/16 21:04 75 16 93 Room Air 05/12/16 19:45 Room Air 05/12/16 17:46 36.6 78 18 150/77 94 Room Air 05/12/16 17:35 Room Air 05/12/16 17:13 36.6 91 18 95 2.0 05/12/16 16:00 95 Nasal Cannula 2.0 05/12/16 15:56 91 94 05/12/16 15:24 37.0 76 20 127/55 92 Room Air 05/12/16 14:13 72 18 93 Nasal Cannula 3.0 05/12/16 12:33 36.6 82 18 139/71 97 Nasal Cannula 2.0 05/12/16 12:00 95 Nasal Cannula 2.0 05/12/16 08:36 36.9 77 18 144/109 96 Nasal Cannula 162/77 05/12/16 08:00 95 Nasal Cannula 2.0 Assessment & Plan Assessment: POD #7, Left ankle ORIF distal fibula, I&D medial open wound with drain, repair medial deltoid ligament. Post op hypoxemia and acute respiratory failure. Plan: Will sign-off to Medicine service PT- NWB LEFT LE DVT proph- ASA DISPOSITION- TO REHAB TODAY PER MEDICINE DRESSING CHANGE TODAY BY ME FOLLOW UP WITH DR. NAIDU NEXT WEEK, May OR , CALL [phone]. LEAVE ALL DRESSINGS AND SPLINTS CLEAN DRY AND IN TACT, DO NOT REMOVE. Inhouse Planning Pain Management: Ultram, PO Tylenol DVT Prophylaxis: TEDs, SCDs, ASA Discharge Planning Discharge Planning: home Pain Management: Ultram DVT Prophylaxis: YAMILEs
[2016-05-13] MEDS: CYANOCOBALAMIN 500 MCG TAB (VIT B-12) PO SCH (08:59)
[2016-05-13] MEDS: SERTRALINE HCL 100 MG TAB PO SCH (08:59)
[2016-05-13] MEDS: ASPIRIN 81 MG ECTAB PO SCH (08:59)
[2016-05-13] MEDS: VERAPAMIL HCL 240 MG TABCR PO SCH (09:00)
[2016-05-13] MEDS: CEROVITE ADV FORMULA TAB PO SCH (09:00)
[2016-05-13] MEDS: POLYETHYLENE (MIRALAX) 17 GM PACK PO SCH (09:00)
[2016-05-13] MEDS: CHOLECALCIFEROL 1000 INTER.UNIT TAB PO SCH (09:00)
[2016-05-13] MEDS ORDERED: FUROSEMIDE 40 MG TAB PO SCH (09:00)
[2016-05-13] MEDS: PANTOprazole SOD 40 MG TAB PO SCH (09:00)
[2016-05-13] MEDS ORDERED: PREGABALIN 75 MG CAP PO SCH (09:00)
[2016-05-13] MEDS: MULTIVITAMIN TAB PO SCH (09:00)
[2016-05-13] MEDS: LOSARTAN POTASSIUM 50 MG TAB PO SCH (09:00)
[2016-05-13] MEDS: INSULIN ASPART 100 UNITS/ML 3 ML PEN SC SCH ×2 (09:06→12:28)
[2016-05-13] MEDS: INSULIN GLARGINE SOLOSTAR 100 UNITS/ML 3 ML PEN SC SCH (09:07)
--- NOTE | 2016-05-13 10:57 | PROGRESS NOTE ---
DATE: 05/13/2016 DATE: 05/13/2016. PROBLEM LIST: Includes: 1. Hypoxia. 2. Obesity hypoventilation syndrome. 3. Obstructive sleep apnea. SUBJECTIVE: The patient reports that she is feeling well. She did not use the BiPAP last night because it was not transferred up from the previous floor with her. She states that she did not sleep well. She states that she is more run down and tired today. Otherwise, the patient reports that she is feeling pretty good. Her breathing is good. She is not having any cough or wheeze. No increased shortness of breath, no chest congestion or tightness. She is currently off of oxygen. Denies any other problems. No abdominal pain. No change in her bowels. No difficulty voiding. She does have the immobilizer on her left ankle from surgery. Otherwise no difficulties with her extremities. She did have some swelling that has resolved. OBJECTIVE: GENERAL: The patient is a 65-year-old female lying in bed in no acute distress. She is alert and oriented x3. Mood is good. Affect is good. VITAL SIGNS: Temp 36.7, pulse 68, respirations 17, blood pressure 158/83, pulse ox 97% on room air. HEAD, EYES, EARS, NOSE, AND THROAT: Normocephalic, atraumatic. Pupils equal, round and reactive to light and accommodation. Extraocular movements are intact. [place] moist gingival and buccal mucosa. NECK: Short, thick, no mass, no adenopathy, no bruit. CHEST: Decreased breath sounds but clear. I do not appreciate any wheeze, rale or rhonchi at this time. CARDIOVASCULAR: Regular rate and rhythm. No murmurs, gallops or rubs. ABDOMEN: Obese, soft, nontender. No guarding, rigidity or organomegaly. EXTREMITIES: Left lower extremity is wrapped and bandaged following surgery, right lower extremity. She may have 1+ pitting edema bilaterally. NEUROLOGIC: Cranial nerves II through XII are intact. No focal deficit. No new lab data. No new radiologic data. IMPRESSION: 1. A 65-year-old female with obesity hypoventilation syndrome, diastolic heart failure. At this time, the patient is much improved. As far as her hypoxia the patient is currently off of oxygen and saturating in the mid 90s. The patient unable to do a 2-step at this time. I would recommend to just continue monitoring for now. 2. Obesity hyperventilation syndrome. The patient needs to be continued on BiPAP when she goes to rehab. Will need continued at IPAP of 12 and EPAP of 6 with 4 liters of oxygen support. At this point it appears the patient is going to rehab today. She will need to be set up with sleep medicine as an outpatient, per Dr. Asrhad's note recommend Dr. Dominguez which I am in agreement with. Patient and plan reviewed and agree with above note MTDD
[2016-05-13 11:24] VITALS: PULSE 75; O2SAT 97
[2016-05-13] MEDS ORDERED: INSDGIPEN SC (12:39)
[2016-05-13] MEDS ORDERED: LYR75 PO (12:39)
[2016-05-13] MEDS ORDERED: PRT40 PO (12:39)
[2016-05-13] MEDS ORDERED: MULT-589 PO (12:39)
[2016-05-13] MEDS ORDERED: LSX40 PO (12:39)
[2016-05-13] MEDS ORDERED: NVLGIPEN SC (12:39)
--- NOTE | 2016-05-13 12:54 | Discharge Instructions ---
Discharge Instructions Admission Reason for Admission: Open Fracture Dislocation Of Ankle Discharge Discharge Diagnosis / Problem: Acute hypoxemic respiratory failure, acute diastolic CHF, left fibula fx Discharge Goals Goal(s): Improve disease control, Therapeutic intervention Activity Recommendations Activity Limitations: as noted below (as per Ortho instructions) . Instructions / Follow-Up Instructions / Follow-Up A 65 y/o female with a history of DM II, neuralgia, HTN, depression and anxiety who presented to the ED on 05/06 with ankle pain following a mechanical fall. X- rays reveal comminuted compound oblique fracture of distal fibula with lateral dislocation of talus with respect to tibia. Bleeding controlled. Pt afebrile, VSS. Ankle reduced and splinted in ED, post reduction films show significantly improved alignment of fracture. Patient admitted to med/surg by orthopedics for surgical correction. Medicine consulted for pre-operative evaluation and continued management of post-op acute hypoxemic respiratory failure Distal fibula compound fx s/p surgical correction and deltoid ligament repair Pain management with tramadol, DVT prophylaxis with ASA 81 bid x 30 days, and PT /OT as per Ortho -wound check and dressing change done today 05/13 and should remain in splint and all dressings until seen by Ortho for f/u in office on 05/21 or 05/22--> needs appointment scheduled Mixed acute hypoxemic and hypercarbic respiratory failure-had significant hypoxia to the low 70s on POD#2: CTA Chest with no PE but nondiagnostic for most of right sided vessels. Was with pulm edema on CXR, ECHO with acute on chronic diastolic CHF and mild elevation in right sided RSVP. Pulm consult appreciated--> suspected sleep apnea in the setting of opioids use, with pulmonary edema. However initially thought that couldn't rule out infectious/ inflammatory process, also with possible malignancy on CT scan chest with soft tissue surrounding right mainstem bronchus and extending into right hilum. CTA Chest: 1. Diffuse interlobular septal thickening and a few patchy ground glass densities within the right upper lobe. This may represent developing pulmonary edema or an atypical interstitial process. 2. Interval development of abnormal soft tissue surrounding the right mainstem bronchus/bronchus intermedius and extending into the right hilum and subcarinal locations. There are few enlarged right peritracheal lymph nodes. This could be reactive to the pulmonary edema/interstitial process. However, a neoplastic process such as lymphoma or a primary bronchogenic malignancy could also have a similar appearance. Bronchoscopy should be performed for further evaluation. At a minimum, one month chest CT follow-up can also be performed to ensure resolution of these findings. 3. No evidence for pulmonary embolus with limitations as described above. 4. No change in the 3 cm left lower pole thyroid nodule. ABGs reviewed with Pulm, suggestive of possible shunt Overnight oximetry confirms dx of KAITY--> started on BiPAP 03/17 with 4 L O2 TSH normal V/Q scan performed 05/11 with low probability of PE Has had significant improvement with IV diuresis with lasix--> all hypoxia most likely due to acute on chronic diastolic CHF -continue daily po lasix 40mg -d/c'd empiric IV cefepime and IV vancomycin as no evidence of PNA -appreciated pulm input -BIPAP 03/17 to be continued at Rehab and then at home -will need outpatient follow up within 2-[address] Adam Dominguez for her KAITY as well as to repeat her Chest CT for abnormal soft tissue density right mainstem bronchus Acute on chronic diastolic CHF-seen on ECHO, elevated BNP and pulm edema on CXR bnp 1538 -IV lasix was given as above -po lasix daily Diabetes mellitus type 2-- HgbA1c 05/06 was 6.7. Pt takes 20 units Lantus qam at home Hold metformin here and restart upon discharge Lantus 16 units SC qam while here continue Insulin sliding scale check BSGs q ac and qhs Neuralgia Continue Lyrica 75 mg qAM and 150 qhs HTN-stable losartan 50 mg PO BID verapamil 240 mg PO BID -starting lasix Depression with anxiety Continue sertraline 100 mg PO qd Code Status Level I, FULL RESUSCITATION STATUS Dispo to acute rehab today Call your Primary Care doctor if any of the following symptoms or problems start or get worse: * Shortness of breath or difficulty breathing * Wake up at night short of breath * Chest pain * Cough * Swelling of your hands, feet, or legs * More fatigued or tired with your normal activity * Palpitations - sudden fast heart beats WEIGHT * Weigh yourself every morning after using the bathroom. * Use the same scale. * Wear the same amount of clothing. * Write your weight down on a chart. * Call your Primary Care doctor if you gain more than 2-3 pounds in 1-2 days. MEDICATIONS * Use this discharge instruction sheet for medication instructions. * Take your medications at the time your doctor ordered. * Do not skip a dose of your medicines. * If you miss a dose of medicine, take it as soon as possible, but DO NOT DOUBLE A DOSE. * Read your medicine information when you get home. * Know all of the side effects of your medicine. If in doubt, ask your pharmacist * Call your Primary Care doctor's office if you have any side effects. * Be sure all of your doctors know what medicine and herbs you take (including cold, flu, and herbal medicine). Take the following with you to your follow-up doctor appointments: * Weight Chart * Medication List * List of questions Do not drink excessive alcohol, beer or wine. Current Hospital Diet Patient's current hospital diet: Diabetes Type 2 Diet Discharge Diet Recommended Diet: AHA Diet (Heart Healthy), Low Sodium Diet (2gm Na), Diabetes Type 2 Diet Procedures Procedures Performed: Open Reduction Internal Fixation Left Ankle; Irrigation & Debridement; Open Ankle Dislocation; Closure of Deltoid Ligament Repair CTA Chest V/Q scan ECHO Pending Studies Studies pending at discharge: no Laboratory Results Hemoglobin A1c Test 05/06/16 05:20 Range/Units Estimated Average Glucose 146 mg/dl Hemoglobin A1c 6.7 H 4.5-5.6 % Medical Emergencies . Who to Call and When: Call 911 or go to the Emergency Room if: * If at any time you feel your situation is an emergency * You have tightness or pain in your chest that does not go away with rest or Nitroglycerin * You are very short of breath even with rest . Non-Emergent Contact Non-Emergency issues call your: Primary Care Provider Call Non-Emergent contact if: temperature is above 101, your pain is not controlled, your pain is worsening, wound has increased drainage, wound has increased redness, wound has increased pain, you have any medication questions . . "Provider Documentation" section prepared by Tesha Reeves. VTE Core Measure Inpt VTE Proph given/why not?: Other Anticoagulation (ASA), SCD's
[2016-05-13 13:00] VITALS: BP 158/83; PULSE 75; TEMP 36.7; O2SAT 97
--- NOTE | 2016-05-13 19:47 | Discharge Summary ---
Discharge Summary Admission Date: May 06, 2016 at 13:18 Discharge Date: May 13, 2016 Discharge Disposition: Rehab Principal Diagnosis: Left open bimalleolar fracture/dislocation, acute diastolic CHF Problems/Secondary Diagnoses: DM II Neuralgia HTN Depression with anxiety Acute hypoxemic respiratory failure Acute diastolic CHF Mild elevation in right sided RSVP. Obstructive sleep apnea Abnormal CT scan chest with abnormal soft tissue surrounding the right mainstem bronchus/bronchus intermedius and extending into the right hilum and subcarinal locations with a few enlarged right peritracheal lymph nodes Thyroid nodule Immunizations: Have You Had Influenza Vaccine: No History of Tetanus Vaccine?: Unknown History of Pneumococcal: No History of Hepatitis B Vaccine: No Procedures: ANKLE 2 VIEWS CLINICAL HISTORY: Left ankle pain. Fracture. COMPARISON: None. DISCUSSION: There is a comminuted oblique fracture of the distal fibula. There is lateral dislocation of the talus with respect to the tibia. There is fragmentation of the articular surface of the tibia with a probable fracture involving the posterior malleolus. An oblique fracture through the medial malleolus cannot be excluded. IMPRESSION: Fracture dislocation. CHEST CTA for PULMONARY ARTERIES CT DOSE: 712.82 mGy.cm HISTORY: Atypical chest pain. TECHNIQUE: Multiaxial CT images of the chest were performed following the intravenous administration of contrast to evaluate the pulmonary arteries. Maximal intensity projection images were also obtained. COMPARISON STUDY: Chest CTA 07/15/2015. FINDINGS: Respiratory motion resulting in suboptimal evaluation of the distal ulnar arteries. Specifically, the segmental pulmonary arteries of the right upper lobe and subsegmental pulmonary arteries of the right lower lobe are essentially nondiagnostic. However, the remaining pulmonary arteries show no evidence for pulmonary embolus. The heart is stable in size. No evidence for an aortic dissection. No pleural or pericardial effusions. There is abnormal soft tissue encasing the right mainstem bronchus/bronchus intermedius. This measures up to 8 mm in thickness posteriorly. There is also abnormal soft tissue within the right hilum. Subcarinal soft tissue/lymphadenopathy measures up to 2 cm in thickness. This has developed in the interval. Right paratracheal lymphadenopathy has also developed in the interval. The dominant lymph node measures 11 mm in short axis diameter. Stable 3 cm left thyroid nodule. No left hilar lymphadenopathy. Limited views of the upper abdomen demonstrate fatty changes within the liver and a normal spleen. The visualized adrenal glands are unremarkable. No suspicious lytic or blastic osseous lesions. No pneumothorax. The central airways are patent. Diffuse interlobular septal thickening. Patchy ground glass density within the right upper lobe. IMPRESSION: 1. Diffuse interlobular septal thickening and a few patchy ground glass densities within the right upper lobe. This may represent developing pulmonary edema or an atypical interstitial process. 2. Interval development of abnormal soft tissue surrounding the right mainstem bronchus/bronchus intermedius and extending into the right hilum and subcarinal locations. There are few enlarged right peritracheal lymph nodes. This could be reactive to the pulmonary edema/interstitial process. However, a neoplastic process such as lymphoma or a primary bronchogenic malignancy could also have a similar appearance. Bronchoscopy should be performed for further evaluation. At a minimum, one month chest CT follow-up can also be performed to ensure resolution of these findings. 3. No evidence for pulmonary embolus with limitations as described above. 4. No change in the 3 cm left lower pole thyroid nodule. NUCLEAR MEDICINE VENTILATION/PERFUSION SCAN HISTORY: persistent hypoxia post-op, CTA nondiagnostic partially TECHNIQUE: 32.1 mCi of technetium 99 M DTPA were inhaled for the ventilation scan and 5.3 mCi of technetium 99 M MAA were intravenously injected for the perfusion scan. Anterior, posterior, oblique, and lateral views the chest were immediately performed for the administration of radiotracer. COMPARISON STUDY: Chest 05/10/2016. FINDINGS: Cardiac silhouette is mildly enlarged. There is slight blunting of the bilateral costophrenic sulci. However, there are no perfusion or ventilation defects identified. IMPRESSION: Above findings are consistent with a very low probability scan. CHEST ONE VIEW PORTABLE HISTORY: Short of breath. Hypoxia. COMPARISON: Chest 05/08/2016. FINDINGS: Progressive diffuse interstitial and vascular thickening. Trace fluid within the right minor fissure. There may also be a trace left pleural effusion. The heart is mildly enlarged. No pneumothorax. IMPRESSION: Progression of the moderate pulmonary edema and trace bilateral pleural effusions. Electronically signed by: Delonte Bean M.D. 05/10/2016 11:48 AM CHEST ONE VIEW PORTABLE HISTORY: Short of breath. Congestive heart failure. COMPARISON: Chest 05/06/2016. FINDINGS: Diffuse interstitial and vascular thickening consistent with mild pulmonary edema. This has progressed. The heart is mildly enlarged. No pneumothorax. No pleural effusions. IMPRESSION: Interval development of mild interstitial edema. Electronically signed by: Delonte Bean M.D. 05/08/2016 5:54 PM Consultations: Pulmonology Orthopedics Medication Reconciliation New Medications: Aspirin (Aspirin EC Low Dose) 81 Mg Ectab 81 MG PO BID for 30 Days, #60 Furosemide (Furosemide) 40 Mg Tab 40 MG PO QAM for 30 Days, #30 TAB Insulin Aspart (Novolog Flexpen) 100 Units/Ml Inj 0 UNITS SC ACHS for 30 Days Insulin Glargine (Lantus Solostar) 100 Unit/Ml Inj 16 UNIT SC QAM for 30 Days Multivitamins (Daily Damon) 1 Tab Tab 1 TAB PO QAM for 30 Days, #30 TAB Pantoprazole (Pantoprazole Sodium) 40 Mg Tab 40 MG PO QAM for 30 Days, #30 TAB Pregabalin (Lyrica) 75 Mg Cap 75 MG PO QAM for 30 Days, CAP and 150mg po qhs Tramadol HCl (Tramadol HCl) 50 Mg Tab 50-100 MG PO Q4H PRN for Pain, #60 TAB Continued Medications: Cholecalciferol (Vitamin D3) 1,000 Unit Tab 2000 UNIT PO DAILY, 3 Refills Cyanocobalamin (Vitamin B12) 1,000 Mcg Tab 1000 MCG PO DAILY Estradiol Vaginal (Estrace) 0.1 Mg/Gm Cre 1 APPLN 3XWK Insulin Glargine (Lantus) 100 Unit/Ml Inj 20 UNITS SC QAM Lorazepam (Ativan) 0.5 Mg Tab 0.5 MG PO UD PRN for Anxiety Losartan Potassium (Cozaar) 50 Mg Tab 50 MG PO BID Metformin Hcl (Glucophage) 1,000 Mg Tab 1000 MG PO BID Multiple Vitamins W/ Minerals (Hair/Skin/Nails) 1 Tab Tab 1 TAB PO DAILY Sertraline (Zoloft) 100 Mg Tab 100 MG PO DAILY, 1 Refill Verapamil Hcl (Verelan) 240 Mg Cap 240 MG PO BID Discontinued Medications: Insulin Lispro (Human) (Humalog Kwikpen) 100 Unit/Ml Inj 5 UNITS SQ QAM Naproxen (Naprosyn) 500 Mg Tab 500 MG PO BID Pregabalin (Lyrica) 75 Mg Cap 75 MG PO TID Tramadol (Ultram) 50 Mg Tab 50 MG PO Q8H PRN for Pain Referrals At Discharge Follow up Referrals: Family Practice Referral - Within 2 Weeks with Nando Portillo III, CRNP Orthopedics Referral - 05/21/16 with Sven Allen M.D. [employer] Referral - Within 2 Weeks with Adam Dominguez, DO Discharge Exam Pt doing very well on day of discharge. She is not requiring any oxygen, she does not feel SOB. SHe tolerated BiPAP overnight. SHe is feeling irritable though and thinks it's a reaction to po lasix. Review of Systems: Constitutional: No fever Eyes: No problem reported ENT: No problem reported Respiratory: No dyspnea on exertion, No shortness of breath Cardiovascular: No chest pain Abdomen: No pain Musculoskeletal: + joint pain (left ankle pain) Genitourinary - Female: No problem reported (left ankle pain) Neurologic: No problem reported Psychiatric: + anxiety Endocrine: No problem reported Hematologic / Lymphatic: No problem reported Integumentary: No problem reported Physical Exam: General Appearance: WD/WN, no apparent distress, + obese Eyes: normal inspection, sclerae normal ENT: hearing grossly normal Neck: trachea midline Respiratory/Chest: lungs clear, normal breath sounds, no respiratory distress, no accessory muscle use Cardiovascular: regular rate, rhythm, no edema, no gallop, no JVD, no murmur Abdomen / GI: normal bowel sounds, non tender, soft (and obese) Extremities: + pertinent finding (left leg in splint and dressing, not removed, right leg no edema) Neurologic/Psychiatric: alert, oriented x 3, + pertinent finding (anxious ) Skin: normal color, warm/dry, no rash Hospital Course A 65 y/o female with a history of DM II, neuralgia, HTN, depression and anxiety who presented to the ED on 05/06 with ankle pain following a mechanical fall. X- rays reveal comminuted compound oblique fracture of distal fibula with lateral dislocation of talus with respect to tibia. Bleeding controlled. Pt afebrile, VSS. Ankle reduced and splinted in ED, post reduction films show significantly improved alignment of fracture. Patient admitted to med/surg by orthopedics for surgical correction. Medicine consulted for pre-operative evaluation and continued management of post-op acute hypoxemic respiratory failure Distal fibula compound fx s/p surgical correction and deltoid ligament repair Pain management with tramadol, DVT prophylaxis with ASA 81 bid x 30 days, and PT /OT as per Ortho -wound check and dressing change done today 05/13 and should remain in splint and all dressings until seen by Ortho for f/u in office on 05/21 or 05/22--> needs appointment scheduled Mixed acute hypoxemic and hypercarbic respiratory failure-had significant hypoxia to the low 70s on POD#2: CTA Chest with no PE but nondiagnostic for most of right sided vessels. Was with pulm edema on CXR, ECHO with acute on chronic diastolic CHF and mild elevation in right sided RSVP. Pulm consult appreciated--> suspected sleep apnea in the setting of opioids use, with pulmonary edema. However initially thought that couldn't rule out infectious/ inflammatory process, also with possible malignancy on CT scan chest with soft tissue surrounding right mainstem bronchus and extending into right hilum. CTA Chest: 1. Diffuse interlobular septal thickening and a few patchy ground glass densities within the right upper lobe. This may represent developing pulmonary edema or an atypical interstitial process. 2. Interval development of abnormal soft tissue surrounding the right mainstem bronchus/bronchus intermedius and extending into the right hilum and subcarinal locations. There are few enlarged right peritracheal lymph nodes. This could be reactive to the pulmonary edema/interstitial process. However, a neoplastic process such as lymphoma or a primary bronchogenic malignancy could also have a similar appearance. Bronchoscopy should be performed for further evaluation. At a minimum, one month chest CT follow-up can also be performed to ensure resolution of these findings. 3. No evidence for pulmonary embolus with limitations as described above. 4. No change in the 3 cm left lower pole thyroid nodule. ABGs reviewed with Pulm, suggestive of possible shunt Overnight oximetry confirms dx of KAITY--> started on BiPAP 12/6 with 4 L O2 TSH normal V/Q scan performed 05/11 with low probability of PE Has had significant improvement with IV diuresis with lasix--> all hypoxia most likely due to acute on chronic diastolic CHF -continue daily po lasix 40mg -d/c'd empiric IV cefepime and IV vancomycin as no evidence of PNA -appreciated pulm input -BIPAP 12/6 to be continued at Rehab and then at home -will need outpatient follow up within 2-[address] Adam Dominguez for her KAITY as well as to repeat her Chest CT for abnormal soft tissue density right mainstem bronchus Acute on chronic diastolic CHF-seen on ECHO, elevated BNP and pulm edema on CXR bnp 1538 -IV lasix was given as above -po lasix daily Diabetes mellitus type 2-- HgbA1c 05/06 was 6.7. Pt takes 20 units Lantus qam at home Hold metformin here and restart upon discharge Lantus 16 units SC qam while here continue Insulin sliding scale check BSGs q ac and qhs Neuralgia Continue Lyrica 75 mg qAM and 150 qhs HTN-stable losartan 50 mg PO BID verapamil 240 mg PO BID -starting lasix Depression with anxiety Continue sertraline 100 mg PO qd Code Status Level I, FULL RESUSCITATION STATUS Dispo to acute rehab today Total Time Spent: Greater than 30 minutes This includes examination of the patient, discharge planning, medication reconciliation, and communication with other providers. Discharge Instructions Please refer to the electronic Patient Visit Report (Discharge Instructions) for additional information. Follow-Up With Pulmonology in 2 weeks With Ortho in 1 week With PCP within 1 week after discharge from rehab Additional Copies To Adam Dominguez DO; Nando Portillo III, CRNP; Sven Allen M.D.
== END 2016-05-13 15:15 | DRG 492 ==
LOC: ENRESERVDT → ENRESERVTM → EDBD 06:00 → C.EDB 06:01 → C.3E 13:18 → C.2E 05-08 23:38 → C.3E 05-12 17:36
PROVIDERS: ADMIT Orthopaedic Surgery Sports Medicine; ATTEND Family Medicine
PROC: 0MQ Bursae and Ligaments, Repair (ICD-10-PCS; 2016-05-06)
PROC: 0SSG04Z Reposition Left Ankle Joint with Internal Fixation Device, Open Approach (ICD-10-PCS; principal; 2016-05-06 10:00)
DX: S82.842A Displaced bimalleolar fracture of left lower leg, initial encounter for closed fracture (principal); I50.33 Acute on chronic diastolic (congestive) heart failure; J96.01 Acute respiratory failure with hypoxia; J96.02 Acute respiratory failure with hypercapnia; E66.2 Morbid (severe) obesity with alveolar hypoventilation; Z68.42 Body mass index [BMI] 45.0-49.9, adult; E87.2 Acidosis; I11.0 Hypertensive heart disease with heart failure; E11.9 Type 2 diabetes mellitus without complications; E11.42 Type 2 diabetes mellitus with diabetic polyneuropathy; F32.9 Major depressive disorder, single episode, unspecified; F41.9 Anxiety disorder, unspecified; D64.9 Anemia, unspecified; W01.0XXA Fall on same level from slipping, tripping and stumbling without subsequent striking against object, initial encounter; Y93.01 Activity, walking, marching and hiking; Y92.096 Garden or yard of other non-institutional residence as the place of occurrence of the external cause; Z79.4 Long term (current) use of insulin; Z80.0 Family history of malignant neoplasm of digestive organs; Z83.3 Family history of diabetes mellitus; Z82.49 Family history of ischemic heart disease and other diseases of the circulatory system; Z99.81 Dependence on supplemental oxygen; Z87.891 Personal history of nicotine dependence; I35.0 Nonrheumatic aortic (valve) stenosis

== ENCOUNTER → 2016-05-27 | Outpatient (CLI) | payer OTHER ==
[~2016-05-27] MED LIST changes: +ASPEC81 PO; +CHOL1000 PO; -CHOL100010 PO; -CIPR-255 PO; +ESTCR; -HMLI SC; +INSDGIPEN SC; +LORA-741 PO; +LSX40 PO; +LYR75 PO; +MULT-580 PO; +MULT-589 PO; -NAPR-1169 PO; +NVLGIPEN SC; +PRT40 PO; +ULT50X PO
[2016-05-27 13:04] LABS: ALT/SGPT 28 U/L (12-78); AST/SGOT 16 U/L (15-37); BLOOD UREA NITROGEN 17 mg/dl (7-18); BUN/CREATININE RATIO 15.2 (10-20); CARBON DIOXIDE 30 mmol/L (21-32); CHLORIDE 104 mmol/L (98-107); GLUCOSE 96 mg/dl (70-99); POTASSIUM 3.9 mmol/L (3.5-5.1); SODIUM 142 mmol/L (136-145)
[2016-05-27 13:05] LABS: ALKALINE PHOSPHATASE 64 U/L (45-117)
== END | disposition home or self-care (01) ==
LOC: C.LAB 12:14
PROVIDERS: ATTEND Nurse Practitioner Family
DX: I50.9 Heart failure, unspecified (principal)

== ENCOUNTER → 2016-06-01 | Outpatient (CLI) | payer OTHER ==
--- NOTE | 2016-06-05 14:02 | POLYSOMNOGRAPH REPORT ---
CLINICAL DATA: 65-year-old female with BMI of 44 referred by Leona Cabrera and Shirley Milligan for a sleep study. The patient has been admitted to the hospital recently for a fractured ankle and while an inpatient, she was on BiPAP for hypoventilation and suspected obstructive sleep apnea. On the evening of 06/01/2016, a home sleep study was performed using a [employer] type 3 monitor. RECORDING RESULTS: Total recording time was 10 hours. The patient's estimated sleep time and monitoring time was 8.9 hours. RESPIRATORY DATA: Moderate sleep apnea was documented. The YANA was 23. There were 49 obstructive, 3 mixed, and 1 central apneic episode. There were 152 hypopneic episodes. The longest respiratory event recorded was 56 seconds. OXIMETRY DATA: Significant nocturnal hypoxemia was seen. Oxygen divya was 75%. Mean saturation was 90%. Time below 89% was 85 minutes. HEART RATE DATA: Heart rates ranged from 64-73 beats per minute. SNORING DATA: Snoring was recorded throughout the night. IMPRESSION: Moderate sleep apnea/hypopnea with an YANA of 23 with nocturnal hypoxemia. RECOMMENDATIONS: The patient may benefit from a repeat sleep study with CPAP and/or BiPAP. MTDD
== END | disposition home or self-care (01) ==
LOC: C.NEUR 09:34
PROVIDERS: ATTEND Internal Medicine Pulmonary Disease
DX: R09.02 Hypoxemia (principal); R93.8 Abnormal findings on diagnostic imaging of other specified body structures; E66.2 Morbid (severe) obesity with alveolar hypoventilation; G47.33 Obstructive sleep apnea (adult) (pediatric)

== ENCOUNTER → 2016-06-20 | Outpatient (CLI) | payer OTHER ==
[2016-06-20 09:59] LABS: BASO % 0.2 %; BASO ABS # 0.01 K/uL (0-0.2); COMPLETE YES; EOS % 0.4 %; HEMATOCRIT 36.3 % (37-47); IG% 0.2 %; LYMPH % 27.5 %; LYMPH ABS # 1.32 K/uL (1.2-3.4); MEAN CELL VOLUME 84.4 fL (80-100); MEAN CORPUSCULAR HEMOGLOBIN 29.3 pg (25-34); MEAN CORPUSCULAR HGB CONC 34.7 g/dl (32-36); MEAN PLATELET VOLUME 10.3 fL (7.4-10.4); MONO % 7.3 %; NEUT % 64.4 %; PLATELET COUNT 233 K/uL (130-400)
[2016-06-20 10:12] LABS: ESTIMATED AVERAGE GLUCOSE 128 mg/dl; HA1C FLAG Normal (Normal)
[2016-06-20 10:26] LABS: ALT/SGPT 27 U/L (12-78); BLOOD UREA NITROGEN 12 mg/dl (7-18); BUN/CREATININE RATIO 11.7 (10-20); CALCIUM 9.3 mg/dl (8.5-10.1); CARBON DIOXIDE 25 mmol/L (21-32); CHLORIDE 104 mmol/L (98-107); CHOLESTEROL 226 mg/dl (0-200); GLUCOSE 156 mg/dl (70-99); POTASSIUM 4.1 mmol/L (3.5-5.1); SODIUM 141 mmol/L (136-145)
[2016-06-20 10:29] LABS: ALKALINE PHOSPHATASE 64 U/L (45-117); AST/SGOT 15 U/L (15-37); CHOLESTEROL/HDL RATIO 3.4; HDL CHOLESTEROL 67 mg/dl; LDL CHOLESTEROL CALCULATED 126 mg/dl; TRIGLYCERIDES 164 mg/dl (0-150); VERY LOW DENSITY LIPOPROT CALC 33 mg/dl
[2016-06-20 10:48] LABS: RATIO 7.7 mcg/mg (0-30.0)
== END ==
LOC: C.LAB 08:14
PROVIDERS: ATTEND Nurse Practitioner Family
DX: Z11.59 Encounter for screening for other viral diseases (principal); I10 Essential (primary) hypertension; E88.81 Metabolic syndrome and other insulin resistance; E11.9 Type 2 diabetes mellitus without complications

== ENCOUNTER → 2016-07-10 | Outpatient (CLI) | payer OTHER ==
--- NOTE | 2016-07-10 13:19 | DIAGNOSTIC IMAGING REPORT ---
LEFT LOWER EXTREMITY VENOUS DOPPLER CLINICAL HISTORY: Left leg pain and swelling. COMPARISON STUDY: No previous studies for comparison. TECHNIQUE: Sonography of the deep venous system of the left lower extremity was performed. Compression and augmentation were evaluated. FINDINGS: The left common femoral, superficial femoral and popliteal veins were compressible. Augmentation was normal. Flow was shown within the deep calf vessels. IMPRESSION: No evidence of deep venous thrombus within the left lower extremity. Electronically signed by: James Hussein M.D. 07/10/2016 1:18 PM Dictated Date/Time: 07/10/2016 1:17 PM
--- NOTE | 2016-07-16 07:26 | CODING QUERY MEDICAL NECESSITY ---
SUPPORTING DIAGNOSIS NEEDED A supporting diagnosis is required for the test/procedure performed on this patient in order for us to be reimbursed by the patient's insurance. Please provide a supporting diagnosis for the following test/procedure listed below next to the test name along with your signature. *If there is no additional diagnosis for this patient that would support the following test/procedure please document that below next to the test/procedure. Test(s)/Procedure(s) that require a supporting diagnosis: * VENOUS DOPPLER LOWER EXTREMITY DIAGNOSIS: * DOS: 07/10/16 Provider Signature: Date: Thank you Aundrea [facility] Information Management Once completed, please kindly fax back to [phone] For questions please call [phone]
== END | disposition home or self-care (01) ==
LOC: C.ULTRBC 12:40
PROVIDERS: ATTEND Physician Assistant
DX: M79.89 Other specified soft tissue disorders (principal); M79.605 Pain in left leg

== ENCOUNTER → 2016-07-11 | Outpatient (CLI) | payer OTHER ==
[2016-07-11 12:36] LABS: BLOOD UREA NITROGEN 15 mg/dl (7-18); BUN/CREATININE RATIO 13.9 (10-20)
== END | disposition home or self-care (01) ==
LOC: C.LAB 10:48
PROVIDERS: ATTEND Physician Assistant Medical
DX: E11.9 Type 2 diabetes mellitus without complications (principal)

== ENCOUNTER → 2016-07-13 | Outpatient (CLI) | payer OTHER ==
[~2016-07-13] MED LIST changes: +OPTIRAY 320 IV PRN
--- NOTE | 2016-07-13 09:14 | DIAGNOSTIC IMAGING REPORT ---
CT OF THE CHEST WITH IV CONTRAST CLINICAL HISTORY: Abnormal chest CT. Follow-up examination. COMPARISON STUDY: 05/08/2016 TECHNIQUE: Following the IV administration of 93 mL of Optiray-320, CT of the thorax was performed from the thoracic inlet to the lung bases. Images are reviewed in the axial, sagittal, and coronal planes. IV contrast was administered without complication. CT DOSE: 797.58 mGycm FINDINGS: Thyroid: There is a stable 2.5 cm left lobe thyroid nodule. Thoracic aorta: The thoracic aorta is normal in course and caliber, noting standard 3-vessel arch anatomy. No aneurysm or dissection is seen. Pulmonary vasculature: The pulmonary trunk is normal in caliber. There are no central filling defects identified to suggest pulmonary embolus. Note that this examination was not protocoled for the evaluation of pulmonary emboli. HEART: The heart is mildly enlarged. There is no pericardial effusion. Lungs and pleural spaces: There has been interval resolution of the interstitial pulmonary edema. There has been interval resolution of the previously identified soft tissue surrounding the right mainstem bronchus and bronchus intermedius. This was likely secondary to the patient's pulmonary edema. There are no pleural effusions. There is no lobar consolidation. Evaluation the lung parenchyma is mildly limited due to respiratory motion artifact. There is a 8 mm pleural-based density within the left apex, likely representing an area of pleural-parenchymal scarring. There is a second area of presumed atelectasis/scarring within the left upper lobe. There is 8 mm pleural-based opacity within the right upper lobe posterior medially, also likely representing focal atelectasis. There are no suspicious pulmonary masses. Mediastinum: There are several mediastinal lymph nodes at the upper limits of normal in size. Joya: There is no pathologic hilar adenopathy. Axilla: Clear. Upper abdomen: Partially visualized upper abdominal viscera is within normal limits. Skeletal structures: There are no lytic or blastic osseous lesions. IMPRESSION: 1. Interval resolution of the previously identified interstitial pulmonary edema 2. Interval resolution of the previously described soft tissue surrounding the right mainstem bronchus and bronchus intermedius. 3. No evidence of pathologic adenopathy by size criteria 4. No evidence of focal pulmonary consolidation 5. Scattered areas of presumed atelectasis/scarring Electronically signed by: Peewee Whalen M.D. 07/13/2016 9:13 AM Dictated Date/Time: 07/13/2016 9:01 AM
== END | disposition home or self-care (01) ==
LOC: C.CTS 08:19
PROVIDERS: ATTEND Physician Assistant Medical
DX: R93.8 Abnormal findings on diagnostic imaging of other specified body structures (principal)

== ENCOUNTER → 2016-07-15 | Outpatient (CLI) | payer OTHER ==
[~2016-07-15] MED LIST changes: -OPTIRAY 320 IV PRN
[2016-07-15 12:51] LABS: BLOOD UREA NITROGEN 13 mg/dl (7-18)
== END | disposition home or self-care (01) ==
LOC: C.LAB 10:07
PROVIDERS: ATTEND Physician Assistant Medical
DX: E11.9 Type 2 diabetes mellitus without complications (principal)

== ENCOUNTER → 2016-10-27 | Outpatient (CLI) | payer OTHER ==
--- NOTE | 2016-10-27 14:11 | DIAGNOSTIC IMAGING REPORT ---
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 There are no calcifications identified within the urinary tracts. Pelvic vascular and/or fibroid-type calcifications are stable. Bowel pattern is nonobstructive. IMPRESSION: No evidence for nephrocalcinosis. No change from the prior study. The above report was generated using voice recognition software. It may contain grammatical, syntax or spelling errors. Electronically signed by: Alfredo Hawley M.D. 10/27/2016 2:09 PM Dictated Date/Time: 10/27/2016 2:08 PM
== END | disposition home or self-care (01) ==
LOC: C.RAD 13:43
PROVIDERS: ATTEND Nurse Practitioner Family
DX: N20.0 Calculus of kidney (principal)

== ENCOUNTER → 2016-12-29 | Outpatient (CLI) | payer OTHER ==
[2016-12-29 09:58] LABS: BLOOD UREA NITROGEN 13 mg/dl (7-18); CREATININE 0.98 mg/dl (0.60-1.20); GLUCOSE 152 mg/dl (70-99)
[2016-12-29 09:59] LABS: ALT/SGPT 26 U/L (12-78); BUN/CREATININE RATIO 13.2 (10-20); CALCIUM 9.4 mg/dl (8.5-10.1); CARBON DIOXIDE 29 mmol/L (21-32); CHLORIDE 105 mmol/L (98-107); CHOLESTEROL 231 mg/dl (0-200); POTASSIUM 4.1 mmol/L (3.5-5.1); SODIUM 140 mmol/L (136-145); TRIGLYCERIDES 232 mg/dl (0-150); VERY LOW DENSITY LIPOPROT CALC 46 mg/dl
[2016-12-29 10:01] LABS: ALB/GLOB RATIO 1.1 (0.9-2); ALKALINE PHOSPHATASE 65 U/L (45-117); AST/SGOT 19 U/L (15-37); CHOLESTEROL/HDL RATIO 3.6; HDL CHOLESTEROL 65 mg/dl; LDL CHOLESTEROL CALCULATED 120 mg/dl
[2016-12-29 10:37] LABS: ESTIMATED AVERAGE GLUCOSE 143 mg/dl; HA1C FLAG Normal (Normal)
== END | disposition home or self-care (01) ==
LOC: C.LAB 07:51
PROVIDERS: ATTEND Nurse Practitioner Family
DX: I10 Essential (primary) hypertension (principal); E88.81 Metabolic syndrome and other insulin resistance; E11.9 Type 2 diabetes mellitus without complications; S82.209A Unspecified fracture of shaft of unspecified tibia, initial encounter for closed fracture; X58.XXXA Exposure to other specified factors, initial encounter

== ENCOUNTER → 2017-07-02 | Outpatient (CLI) | payer OTHER ==
[2017-07-02 09:29] LABS: BASO % 0.4 %; BASO ABS # 0.02 K/uL (0-0.2); EOS % 0.4 %; EOS ABS # 0.02 K/uL (0-0.5); HEMATOCRIT 38.4 % (37-47); HEMOGLOBIN 13.4 g/dL (12.0-16.0); IG# 0.01 K/uL (0.00-0.02); LYMPH % 30.3 %; LYMPH ABS # 1.59 K/uL (1.2-3.4); MEAN CELL VOLUME 86.9 fL (80-100); MEAN CORPUSCULAR HEMOGLOBIN 30.3 pg (25-34); MEAN CORPUSCULAR HGB CONC 34.9 g/dl (32-36); MEAN PLATELET VOLUME 10.2 fL (7.4-10.4); MONO % 7.2 %; MONO ABS # 0.38 K/uL (0.11-0.59); NEUT % 61.5 %; NEUT ABS # 3.23 K/uL (1.4-6.5); PLATELET COUNT 206 K/uL (130-400); RED CELL DISTRIBUTION WIDTH CV 13.9 % (11.5-14.5); RED CELL DISTRIBUTION WIDTH SD 44.2 fL (36.4-46.3); WHITE BLOOD COUNT 5.25 K/uL (4.8-10.8)
[2017-07-02 09:59] LABS: ALBUMIN 3.5 gm/dl (3.4-5.0); ALT/SGPT 30 U/L (12-78); BLOOD UREA NITROGEN 14 mg/dl (7-18); CARBON DIOXIDE 24 mmol/L (21-32); CHOLESTEROL 228 mg/dl (0-200); CREATININE 1.02 mg/dl (0.60-1.20); GLUCOSE 180 mg/dl (70-99); SODIUM 138 mmol/L (136-145)
[2017-07-02 10:02] LABS: ALKALINE PHOSPHATASE 63 U/L (45-117); AST/SGOT 18 U/L (15-37); LDL CHOLESTEROL CALCULATED 133 mg/dl; TOTAL PROTEIN 7.2 gm/dl (6.4-8.2)
== END | disposition home or self-care (01) ==
LOC: C.LAB 08:22
PROVIDERS: ATTEND Nurse Practitioner Family
DX: E53.8 Deficiency of other specified B group vitamins (principal); I10 Essential (primary) hypertension; E88.81 Metabolic syndrome and other insulin resistance; F41.8 Other specified anxiety disorders; E11.9 Type 2 diabetes mellitus without complications; E55.9 Vitamin D deficiency, unspecified; M79.2 Neuralgia and neuritis, unspecified

== ENCOUNTER → 2017-10-29 | Outpatient (CLI) | payer OTHER ==
[~2017-10-29] MED LIST changes: -ASPEC81 PO; +ASPI-320 PO; +LDDP5 TD; +MELO-84 PO; +NVLG SC; +PANT1TAB4 PO; +PREG200C PO; -PRT40 PO
--- NOTE | 2017-10-29 11:25 | DIAGNOSTIC IMAGING REPORT ---
KUB CLINICAL HISTORY: N20.0 [id number] COMPARISON STUDY: 10/27/2016 FINDINGS: The soft tissues, psoas shadows, renal outlines and intestinal gas pattern appear normal. There is no evidence for bowel obstruction. No abnormal abdominal calcifications are seen. IMPRESSION: Normal study. No evidence for nephrocalcinosis. The above report was generated using voice recognition software. It may contain grammatical, syntax or spelling errors. Electronically signed by: Alfredo Hawley M.D. 10/29/2017 11:23 AM Dictated Date/Time: 10/29/2017 11:23 AM
== END | disposition home or self-care (01) ==
LOC: C.RAD 10:54
PROVIDERS: ATTEND Urology
DX: N20.0 Calculus of kidney (principal)

== ENCOUNTER → 2017-11-04 | Outpatient (CLI) | payer OTHER ==
[~2017-11-04] MED LIST changes: -CYAN100020 PO; -LSX40 PO; -LYR75 PO; -NVLGIPEN SC; -PANT1TAB4 PO
--- NOTE | 2017-11-04 11:51 | DIAGNOSTIC IMAGING REPORT ---
LUMBAR SPINE W/O CONTRAST CLINICAL HISTORY: 67 years-old Female with M54.9 Back painM54.16 Lumbar radiculopath. Acute low back pain with radicular symptoms into the bilateral legs, right greater than left COMPARISON: CT abdomen and pelvis 06/11/2015 TECHNIQUE: Multiplanar, multi sequence MRI of the lumbar spine was performed without intravenous contrast. FINDINGS: The large jqbkq-cr-dkod coal trammer localizer images demonstrate no gross abnormality. No aortic aneurysm or pathologically enlarged lymph nodes. The paraspinal tissues appear to be within normal limits. Study is mildly motion degraded. No acute fracture, subluxation or focal bone marrow edema. Conus medullaris terminates at L1-L2. Signal within the imaged thoracic spinal cord appears normal. Cauda equina are also within normal limits. 11 mm T1 and T2 hyperintense lesion of the L3 vertebral body suggests vertebral body hemangioma or area of focal fatty marrow. Modic type II endplate degenerative changes at L5-S1. Small posterior disc bulge at T11-T12 flattens the ventral thecal sac without significant central canal or foraminal narrowing seen only on the sagittal images. T12-L1: No central canal or neural foraminal stenosis. L1-L2: No central canal or neural foraminal stenosis. L2-L3: Small circumferential annular disc bulge with mild facet arthrosis and ligamentum flavum thickening. Flattening of the ventral thecal sac without significant central canal stenosis. Mild inferior bilateral foraminal stenosis. L3-L4: Mild intervertebral disc space narrowing. There is a 4 x 4 x 6 mm disc extrusion within the left paracentral distribution, image 17 series 7 which appears to abut the left L4 nerve root without displacing it. This causes mild left lateral recess stenosis. Central canal and neuroforamina appear patent. Additionally, there is mild facet arthrosis and ligamentum flavum thickening at this interspace. L4-L5: Mild spondylitic spurring with small circumferential annular disc bulge, annular fissure and small central disc protrusion. Additionally, there is ligament flavum thickening with moderate facet arthrosis. These findings cause mild central canal and mild left foraminal stenosis. The right foramen is patent. L5-S1: Moderate intervertebral disc space narrowing with spondylitic spurring and circumferential annular disc bulge. Ligamentum flavum thickening with moderate to severe facet arthrosis. Central canal is patent. There is mild to moderate bilateral foraminal narrowing. IMPRESSION: 1. Small left paracentral disc extrusion at L3-L4 causes mild left lateral recess stenosis and abuts the left L4 nerve root. 2. At L4-L5, there is mild central canal and mild left foraminal stenosis secondary to discogenic degenerative changes, ligamentum flavum thickening and facet arthropathy. 3. At L5-S1, degenerative changes cause mild to moderate bilateral foraminal stenosis. 4. No acute fracture or focal bone marrow edema. The above report was generated using voice recognition software. It may contain grammatical, syntax or spelling errors. Electronically signed by: Dre Arcos M.D. 11/04/2017 11:50 AM Dictated Date/Time: 11/04/2017 11:39 AM
== END | disposition home or self-care (01) ==
LOC: C.MRI 10:16
PROVIDERS: ATTEND Nurse Practitioner Family
DX: M54.16 Radiculopathy, lumbar region (principal)

== ENCOUNTER 2018-12-26 07:42 | Inpatient (IN) ==
--- NOTE | 2018-12-17 14:35 | PAT Medication Instructions ---
Medication Instructions Date of Service December 17, 2018 Home Medications Medication Instructions Recorded verapamil ER (SR) 240 mg 240 mg PO BID #180 tab 10/14/18 tablet,extended release pregabalin 300 mg capsule 300 mg PO BID #60 cap 11/08/18 aspirin [Aspir-81] 81 tab PO QPM losartan 50 mg PO BID metformin 1,000 mg PO BID multivitamin [Multiple Vitamins] 1 tab PO QAM verapamil ER (SR) 240 mg tablet,extended release 240 mg PO BID albuterol sulfate HFA 90 mcg/actuation aerosol inhaler 2 puff INHALATION DAILY PRN estradiol 0.01% (0.1 mg/gram) vaginal cream 0.01 % VAGINAL 3XWK lidocaine 5 % topical ointment 1 applic TOPICAL .APPLY TO AFFECTED AR PRN pregabalin 300 mg capsule 300 mg PO BID insulin aspart U-100 [Novolog Flexpen U-100 Insulin] 5 units SUBCUT .Before Meals PRN insulin glargine [Lantus Solostar U-100 Insulin] 25 units SUBCUT BIDM mirabegron [Myrbetriq] 50 mg PO QPM sertraline 200 mg PO QPM Continue as directed estradiol 0.01% (0.1 mg/gram) vaginal cream 0.01 % VAGINAL 3XWK ASK your prescriber and surgeon aspirin [Aspir-81] 81 tab PO QPM STOP taking 24 hours before surgery lidocaine 5 % topical ointment 1 applic TOPICAL .APPLY TO AFFECTED AR PRN DO NOT take the morning of surgery losartan 50 mg PO BID metformin 1,000 mg PO BID multivitamin [Multiple Vitamins] 1 tab PO QAM insulin aspart U-100 [Novolog Flexpen U-100 Insulin] 5 units SUBCUT .Before Meals PRN Take morning of surgery With a small sip of water, OTHERWISE NOTHING TO EAT OR DRINK AFTER MIDNIGHT: verapamil ER (SR) 240 mg tablet,extended release 240 mg PO BID albuterol sulfate HFA 90 mcg/actuation aerosol inhaler 2 puff INHALATION DAILY PRN (use if needed; please bring with you to hospital day of surgery if possible) pregabalin 300 mg capsule 300 mg PO BID Take evening before surgery losartan 50 mg PO BID metformin 1,000 mg PO BID verapamil ER (SR) 240 mg tablet,extended release 240 mg PO BID albuterol sulfate HFA 90 mcg/actuation aerosol inhaler 2 puff INHALATION DAILY PRN (if needed) pregabalin 300 mg capsule 300 mg PO BID insulin aspart U-100 [Novolog Flexpen U-100 Insulin] 5 units SUBCUT .Before Meals PRN (if needed) insulin glargine [Lantus Solostar U-100 Insulin] 25 units SUBCUT BIDM mirabegron [Myrbetriq] 50 mg PO QPM sertraline 200 mg PO QPM Insulin Dependent Diabetic Patients * Test your blood sugar the morning of surgery * If Blood Sugar is GREATER THAN 150, take HALF of your regular dose of: insulin glargine [Lantus Solostar U-100 Insulin] take 12 units * If Blood Sugar is LESS THAN 150, DO NOT TAKE ANY: insulin glargine [Lantus Solostar U-100 Insulin] Other Notes If you have any questions please call us at [phone] or [phone] or [phone] or [phone]
--- NOTE | 2018-12-19 11:39 | Anesthesiology Consultation ---
Date of Service December 19, 2018 Assessment & Plan (1) Encounter for pre-operative examination: - Check BSG AM DOS - ASA instructions per surgeon/prescriber. Chart Review Chart Review: Pending: Refer to Additional Notes / Consult section (pending preop testing (labs)) and Patient seen in Pre Admission Testing Teaching & Discussion Pre-Anesthesia Teaching/Discussion Notes: Instructed NPO after midnight before surgery,except medications with 15 cc of water. Medication instructions provided according to the PAT guidelines. History Surgery Operation Date: 12/26/18 09:50 Proposed Procedures p L5-S1 Posterior Lumbar Interbody Fusion, L4-L5 Laminectomy - Ace Gibson DO Height/Weight Height: 5 ft 7 in Weight: 141.2 kg Allergies Allergy/AdvReac Type Severity Reaction Status Date / Time terbinafine Allergy Unknown Unknown Verified 12/14/18 13:23 lisinopril AdvReac Mild COUGH Verified 12/14/18 13:23 cortisone AdvReac Unknown PAIN/TROUBLE Verified 12/14/18 13:23 WALKING Medications Home Medications Medication Instructions Recorded Confirmed Last Taken aspirin [Aspir-81] 81 tab PO QPM 02/11/18 12/14/18 02/21/18 18:30 losartan 50 mg PO BID 02/11/18 12/14/18 02/27/18 18:00 metformin 1,000 mg PO BID 02/11/18 12/14/18 02/27/18 07:00 multivitamin [Multiple Vitamins] 1 tab PO QAM 02/11/18 12/14/18 02/27/18 04:30 verapamil ER (SR) 240 mg 240 mg PO BID #180 tab 10/14/18 12/14/18 Unknown tablet,extended release albuterol sulfate HFA 90 2 puff INHALATION DAILY PRN #1 gm 10/17/18 12/14/18 Unknown mcg/actuation aerosol inhaler blood sugar diagnostic strips #10 ea 10/17/18 10/17/18 Unknown estradiol 0.01% (0.1 mg/gram) 0.01 % VAGINAL 3XWK #1 gm 10/17/18 12/14/18 Unknown vaginal cream lidocaine 5 % topical ointment 1 applic TOPICAL .APPLY TO 10/17/18 12/14/18 Unknown AFFECTED AR PRN #60 gm pen needle, diabetic 31 gauge x #30 ea 10/17/18 10/17/18 Unknown 08/25" pregabalin 300 mg capsule 300 mg PO BID #60 cap 11/08/18 12/14/18 Unknown insulin aspart U-100 [Novolog 5 units SUBCUT .Before Meals PRN 12/14/18 12/14/18 Unknown Flexpen U-100 Insulin] insulin glargine [Lantus Solostar 25 units SUBCUT BIDM 12/14/18 12/14/18 Unknown U-100 Insulin] mirabegron [Myrbetriq] 50 mg PO QPM 12/14/18 12/14/18 Unknown sertraline 100 mg tablet 200 mg PO QPM #180 tab 12/19/18 Unknown Past Medical History Medical History Anxiety Chronic back pain Depression Diabetes IDDM History of kidney stones Hypertension Morbid obesity Osteoarthritis Sleep apnea CPAP Spinal stenosis Urinary incontinence Exercise / Class Metabolic Activity III < 4 Walking/Shop/Light housework Past Family History Family History Mother Family history of diabetes mellitus Myocardial infarction Diabetes Grandmother Family history of diabetes mellitus Father Myocardial infarction Past Surgical History Surgical History History of arthroscopy of right knee 02/28/18: LMA#4 at [facility] History of cystoscopy History of open reduction and internal fixation (ORIF) procedure LEFT ANKLE Past Anesthesia History No Hx of Anesthesia Complications (except PONV x 1 episode*) and No Family Hx of Anesthesia Complications History of PONV No Hx of Motion Sickness and History of PONV (x1 episode) Social History Smoking Status: Former smoker Do You Dip or Chew Tobacco: No Smoking End Date: QUIT 20 YEARS AGO Hx Alcohol Use: No Hx Substance Use: No substance use type: does not use Review of Systems Patient denies chest pain, shortness of breath, cough, wheezing, palpitations. Physical Exam Vital Signs VITALS BP 145/63 P 81 TEMP 98.3 SP02 93%RA RESP 16 PHYSICAL Full neck and c-spine range of motion. Full TMJ range of motion. TMD 3 finger breaths Mallampati Score 2 Dentition: several missing sides/molars Lungs: clear throughout to auscultation Cardiac: regular rate and rhythm, no murmurs noted Spine: normal Carotid arteries: negative bruit Extremities: trace non-pitting LE edema Short thick neck Testing Laboratory Results 10/22/18 HGBA1C 7.8% Electrocardiogram Date: 03/04/18 NSR at 76bpm. Low voltage QRS. Cannot rule out anterior infarct (PRWP, consider anterior [place] dating back to 09/19/2008 [facility] EKG). Chest X-Ray Date: 02/21/18 Findings: + NAD Echocardiogram Date: 05/10/16 EF >70%. No RWMA. Grade II DD. No significant valvular disease. Technically difficult study.
[2018-12-19 12:36] LABS: Basophils # (auto) 0.02 K/uL (0-0.2); Basophils % (auto) 0.4 %; Eosinophils # (auto) 0.02 K/uL (0-0.5); Eosinophils % (auto) 0.4 %; Hematocrit (blood only) 37.8 % (37-47); Hemoglobin 12.6 g/dL (12.0-16.0); Immature Granulocytes # (auto) 0.01 K/uL (0.00-0.02); Immature Granulocytes % (auto) 0.2 %; Lymphocytes # (auto) 1.59 K/uL (1.2-3.4); Lymphocytes % (auto) 31.9 %; Mean Corpuscular Hgb Conc 33.3 g/dL (32-36); Mean Corpuscular Volume 86.9 fL (80-100); Mean Platelet Volume 10.4 fL (7.4-10.4); Monocytes # (auto) 0.29 K/uL (0.11-0.59); Monocytes % (auto) 5.8 %; Neutrophils # (auto) 3.06 K/uL (1.4-6.5); Neutrophils % (auto) 61.3 %; Platelet Count 190 K/uL (130-400); RDW Coefficient of Variation 14.6 % (11.5-14.5); RDW Standard Deviation 46.6 fL (36.4-46.3); Red Blood Count 4.35 M/uL (4.2-5.4); White Blood Count 4.99 K/uL (4.8-10.8)
[2018-12-19 12:49] LABS: Partial Thromboplastin Ratio 0.9; Prothrombin Time 10.3 Seconds (9.0-12.0)
[2018-12-19 13:04] LABS: BUN Creatinine Ratio 11.9 (10-20); Calcium 9.1 mg/dl (8.5-10.1); Creatinine Clr Calc Pharmacy 78.9 ml/min; Est GFR (African American) 65.9; Est GFR (Non-African American) 56.9; Potassium 4.6 mmol/L (3.5-5.1)
--- NOTE | 2018-12-23 17:17 | History and Physical Report ---
DATE OF ADMISSION: 12/26/2018 She is being preoped for surgery Wednesday12/26/2018. She has back and lower extremity difficulty, paresthesias, ongoing now for several months in duration, worsening over time. She is somewhat incapacitated. PAST MEDICAL HISTORY: Positive for obesity, heart disease, diabetes, anxiety, hypertension. PAST SURGICAL HISTORY: Negative. ALLERGIES: Negative. FAMILY HISTORY: Diabetes. SOCIAL HISTORY: She is single, 1 child. No alcohol, tobacco. REVIEW OF SYSTEMS: Twelve systems reviewed today. Is positive for weight gain and fatigue. Ear, nose and throat negative. Denies any swelling hands, feet, chest pain, shortness of breath. No nausea, vomiting, urgency, frequency, dysuria, no incontinence. No kidney stones. She has musculoskeletal stiffness, cramping, muscle pain, but no fevers, sweats, chills, or bowel and bladder issues. MEDICATIONS: Aspirin, insulin, losartan, Lyrica, metformin, Naprosyn, Zoloft, Ultram, Verapamil. PHYSICAL EXAMINATION: GENERAL: 5' 7", 250, in moderate distress. VITAL SIGNS: Blood pressure 130/80, pulse 80, respirations 16. HEENT: Pupils react to light and accommodation. Ear, nose and throat clear. CARDIAC: Normal S1, S2, no S3. LUNGS: Clear to auscultation. No rales, rhonchi or wheezing. ABDOMEN: Soft, nontender. EXTREMITIES: Intact. She has numbness and tingling. She has associated weakness. She has decreased range of motion and gait intolerance. Images demonstrate severely degenerative segment L4-L5, moderate stenosis at L4-L5, degenerative disc L5-S1. Decompression L4-L5, L5-S1, more than likely fusion L5-S1. PLAN: Laminectomy L4-L5 and a PLIF L5-S1.
[~2018-12-26 07:42] MED LIST changes: +ACETAMINOPHEN 1000 MG/100 ML IV IV SCH; -ASPI-320 PO; +CEFAZOLIN 3000MG 72.5 ML IV SCH; -CHOL1000 PO; -ESTCR; -INSDGI SC; -INSDGIPEN SC; -LDDP5 TD; -LORA-741 PO; -LOSA50TA54 PO; +LR 15ML/HR IV SCH; -MELO-84 PO; -METF-384 PO; -MULT-580 PO; -MULT-589 PO; -NVLG SC; -PREG200C PO; -SERT-234 PO; +SODIUM CHLORIDE 0.9% 1,000 ML IV SCH; -ULT50X PO; -VERA1CAP PO
[2018-12-26] MEDS ORDERED: SCOPOLAMINE 1.5 MG TDSY TD ONE (09:14)
[2018-12-26] MEDS ORDERED: LIDOCAINE HCL 2% 2 ML VIAL/AMP(20MG/ML) INFIL ONE (09:23)
[2018-12-26] MEDS ORDERED: PROPOFOL IV EMULSION 10 MG/ML 20 ML VIAL IV ONE (09:23)
[2018-12-26] MEDS ORDERED: ONDANSETRON INJ 2 MG/ML 2 ML VIAL ONE (09:23)
[2018-12-26] MEDS ORDERED: DEXAMETHASONE SOD INJ 4 MG/ML VIAL ONE (09:23)
[2018-12-26] MEDS ORDERED: NEOSTIGMINE METHYLSULFATE 5 MG/5 ML SYR ONE (09:23)
[2018-12-26] MEDS ORDERED: MIDAZOLAM HCL 1 MG/ML 2ML VIAL ONE (09:23)
[2018-12-26] MEDS ORDERED: fentaNYL citrate 100 MCG/2 ML VIAL ONE (09:23)
[2018-12-26] MEDS ORDERED: GLYCOPYRROLATE 0.2 MG/ML VIAL ONE (09:23)
[2018-12-26] MEDS ORDERED: ONDANSETRON INJ 2 MG/ML 2 ML VIAL IV PRN ×2 (09:38→14:10)
[2018-12-26] MEDS ORDERED: ePHEDrine sulfate 50 MG/ML AMP IV PRN (09:38)
[2018-12-26] MEDS ORDERED: fentaNYL citrate 100 MCG/2 ML VIAL IV PRN (09:38)
[2018-12-26] MEDS ORDERED: MoRPHine SULFATE 10 MG/ML CARP/VIAL IV PRN (09:38)
[2018-12-26] MEDS ORDERED: ATROPINE SULFATE 0.1 MG/ML 10ML SYR IV PRN (09:38)
[2018-12-26] MEDS ORDERED: GELATIN SPONGE SZ 100 ONE ×2 (10:03→11:43)
[2018-12-26] MEDS ORDERED: THROMBIN FOR SOLN 20000 UNIT KIT ONE (10:03)
[2018-12-26] MEDS ORDERED: BUPIVACAINE/EPINEPHRINE 0.5% MPF 1:200,000 30 ML VIAL ONE (10:03)
[2018-12-26] MEDS ORDERED: VANCOMYCIN HCL 1000MG/20ML VIAL ONE (10:03)
[2018-12-26] MEDS ORDERED: BACITRACIN INJ 50,000 UNIT VIAL ONE (10:04)
--- NOTE | 2018-12-26 10:22 | History & Physical Bridge Note ---
Date of Service December 26, 2018 History & Physical Bridge Note I have examined the patient, reviewed the History & Physical and in the interval since the performance of the History & Physical I have noted the following changes of clinical significance: no changes noted
[2018-12-26] MEDS ORDERED: ePHEDrine sulfate 50 MG/ML SYR ONE (11:10)
[2018-12-26] MEDS ORDERED: ROCURONIUM BROMIDE 10 MG/ML 5 ML VIAL ONE (11:27)
[2018-12-26] MEDS ORDERED: HYDROmorphone INJ 2 MG/ML SYR/VIAL ONE (12:02)
--- NOTE | 2018-12-26 12:39 | Fluoroscopy Report ---
FL spine 1V any level CLINICAL HISTORY: 68 years-old Female presenting with L5-S1 POSTERIOR LUMBAR INTERBODY FUSION. TECHNIQUE: 1 fluoroscopic image(s) recorded as part of an intraoperative procedure. COMPARISON: MR lumbar spine from 07/11/2018. FINDINGS/IMPRESSION: Transpedicular screw fixation of L4-S1. Normal anatomic alignment. Please see surgical report for further details. Fluoroscopy dosage (mGy): 5.89. Fluoroscopy time: 6.6 seconds. Number or time of high level fluoroscopy (HLF), digital spot, or digital subtraction images: 0. Electronically signed by: Chad Mari M.D. 12/26/2018 12:38 PM
--- NOTE | 2018-12-26 12:45 | Post Operative Brief Note ---
PG Immediate Post Op with CF Date of Surgery December 26, 2018 Pre & Post Diagnosis Operation Date: 12/26/18 09:50 Pre-Op Diagnosis: Spinal Stenosis Post-Op Diagnosis: Spinal Stenosis Procedure Operation Date: 12/26/18 09:50 Actual Procedures p L4-S1 Posterior Lumbar Fusion(Not Applicable) - Ace Gibson DO Surgeon Ace Gibson DO Transition Teacher abdi Estimated Blood Loss 400 Findings Consistent with Post-Op Diagnosis Specimens Specimen Description: none Drains De Paz Catheter and Hemovac Drain Anesthesia Type General
--- NOTE | 2018-12-26 13:21 | Operative Report ---
DATE OF OPERATION: 12/26/2018 PREOPERATIVE DIAGNOSIS: Instability and stenosis, L4-L5, L5-S1. POSTOPERATIVE DIAGNOSIS: Instability and stenosis, L4-L5, L5-S1. PROCEDURE: Include 1. Decompression laminectomy L4-L5, L5-S1, partial facetectomy, decompression of all neural elements, 2-level decompression L4-L5 and L5-S1. 2. Pedicle screw instrumentation L4, L5 and S1. Three segment construct. 3. Posterolateral fusion L4, L5 and S1. SURGEON: Ace Gibson DO TAPROOM ATTENDANT: Ge See PA-C. COMPLICATIONS: Zero. BLOOD LOSS: 400-500 mL. ANESTHETIC: General. COMORBIDITIES: Included a morbidly obese patient with a BMI over 50. DESCRIPTION OF PROCEDURE: The patient was taken to the operating room, a general intubated anesthetic provided to the patient, placed prone, scrubbed, prepped and draped sterile. It was a deep dissection and because of her morbid obesity, we had used large blades to even get down to the lamina and the facet joints. In order to put in self-retaining retractor, we commenced with the decompression, I was pleased, then we decompressed the neural elements at L5-S1 and L4-L5 with relative ease, foraminotomies, partial facetectomies provided. I felt there was some moderate instability, although no true spondylolisthesis. We instrumented the spine. I was safely able to get pedicle screws into L4, L5 and S1 on the left and L4, L5 and S1 on the right. We locked down the spinal construct. The fit was near anatomic. We then bone grafted out over the transverse process to initiate diffusion. We irrigated thoroughly with approximately 500 mL of fluid, closed fascia to fascia with #1 Vicryl suture over a Hemovac drain, 2-0 in the subcuticular layer, staple gun on the skin, sterile dressing applied. The patient returned supine, extubated to PACU stable. IMPLANTS USED: By the [employer]. Sponge and needle count correct at the close of the procedure. Bone graft used was combination of autograft and demineralized bone matrix. I attest to the content of the Intraoperative Record and any orders documented therein. Any exception s are noted below.
--- NOTE | 2018-12-26 14:02 | Anesthesiology Progress Note ---
Date of Service December 26, 2018 Anesthesia Post Procedure Vital Signs Vital Signs: Temp Pulse Pulse Resp BP Pulse Ox 12/26/18 13:40 80 13 113/65 94 12/26/18 13:30 36.4 C L 81 16 126/60 94 12/26/18 13:20 85 18 135/59 L 100 12/26/18 13:10 87 18 155/67 H 99 12/26/18 13:00 37.6 C H 93 H 14 166/79 H 90 12/26/18 08:27 36.8 C 87 20 159/71 H 93 Pain Intensity Right Leg: Pain Intensity: 9 Left Leg: Pain Intensity: 8 Back: Pain Intensity: 5 Notes Mental Status: alert / awake / arousable and participated in evaluation Nausea / Vomiting: adequately controlled Pain: adequately controlled Airway Patency, RR, SpO2: stable & adequate BP & HR: stable & adequate Hydration State: stable & adequate
[2018-12-26] MEDS ORDERED: ALUMINUM/MAGNESIUM SUSP 30 ML UDC PO PRN (14:10)
[2018-12-26] MEDS ORDERED: DO NOT ADMINISTER PNEUMOCOCCAL VACCINE PRN (14:10)
[2018-12-26] MEDS ORDERED: NALOXONE HCL 0.4 MG/1 ML VIAL/CARP IV PRN (14:10)
[2018-12-26] MEDS ORDERED: LIDOCAINE HCL 5% OINT 30 GM TUBE TOP PRN (14:10)
[2018-12-26] MEDS ORDERED: FAMOTIDINE 20 MG TAB PO PRN (14:10)
[2018-12-26] MEDS ORDERED: SOD PHOSPHATE/SOD BIPHOSPHATE ENEMA 132 ML BTL PR PRN (14:10)
[2018-12-26] MEDS ORDERED: DO NOT ADMINISTER FLU VACCINE PRN (14:10)
[2018-12-26] MEDS ORDERED: MAGNESIUM HYDROXIDE SUSP 30 ML UDC PO PRN (14:10)
[2018-12-26] MEDS ORDERED: ACETAMINOPHEN 1,000 MG/100 ML VIAL IV PRN (14:10)
[2018-12-26] MEDS ORDERED: BISACODYL 10 MG SUPP PR PRN (14:10)
[2018-12-26] MEDS ORDERED: PHARMACY GLYCEMIC MGMT CONSULT PRN (14:20)
[2018-12-26] MEDS: SODIUM CHLORIDE 0.9% 1000ML 1,000 ML IV SCH (14:32)
[2018-12-26] MEDS ORDERED: INSULIN GLARGINE SOLOSTAR 100 UNITS/ML 3 ML PEN SQ ONE (15:00)
[2018-12-26] MEDS ORDERED: INSULIN HUMAN REGULAR IV BOLUS 5 UNITS in SYRINGE 0 ML IV ONE (15:30)
[2018-12-26] MEDS ORDERED: INSULIN REGULAR 250 UNITS in SODIUM CHLORIDE 0.9% 247.5 ML IV SCH (15:30)
--- NOTE | 2018-12-26 15:31 | Pharmacy Report ---
Glycemic Control Consultation - Date of Service December 26, 2018 - Scope Scope: Glycemic Pharmacist consulted by Dr. Gibson on 12/26/18 for glycemic control and to write orders per [facility] inpatient glycemic control protocol - Objective Weight: 141 kg Accuchecks BSG (last 24hrs): 12/26/18 12/26/18 08:04 14:06 POC Glucose 188 H 242 H - Recent Pertinent Medications Outpatient Anti-diabetic Regimen: * Lantus 25 units BID * Novolog 5 units before meals * Metformin 1000 mg PO BID * A1c = 7.8 % (10/22/18) Risk Factors for Insulin Resistance: * Steroids: dexamethasone 8 mg IV x 1 preop * Recent Surgery: Lumbar fusion (12/26/18) * Diet: T2DM - Assessment & Plan Assessment & Plan: ASSESSMENT: * Patient admitted following lumbar fusion surgery * Relevant PMH complete with type 2 DM, obesity (BMI: 48.7), and hypertension * Patient received 12 units of Lantus this AM based on preop BSG; 8 mg IV dexa methasone given intraoperatively * BSG of 242 following surgery at 1406 today * Since patient's blood sugar prior to surgery was 188 mg/dL, concern for significant hyperglycemia. Spoke with Dr Gibson via telephone who okay'ed insulin infusion. Will run this along with large dose of Lantus given. Pending orders entered to stop insulin infusion. * Novolog CR fixed at 1 unit per 5 grams of carbohydrates to prevent inadequate coverage of carbohydrates eaten. * Pt is maintained on oral antidiabetic agents as an outpatient * Oral agents are not recommended for inpatient use d/t drug interactions, changing PO intake, and difficulty titrating for acute hyper/hypoglycemia. ADA recommends re-initiating outpatient oral agents 1-2 days prior to discharge if/when appropriate if they were held on admission. * Will hold oral agents for admission and utilize SQ basal bolus insulin regimen which is the recommended regimen for inpatient glycemic control. * Will initiate weight based insulin dosing for insulin bryce patient and titrate based on BSG trends. PLAN FOR INPATIENT GLYCEMIC CONTROL: * Lantus 45 unit dose given postoperatively to cover for steroid-induced hyperglycemia * Starting IV insulin infusion per SEVERE stress protocol * Goal Range 120 - 180 mg/dl * In this setting of postoperative hyperglycemia and administration of dexamethasone 8 mg IV, continuous IV insulin infusion may be the best method for achieving glycemic targets. * Holding outpatient oral diabetes medications * Bolus insulin * NovoLog per scale ACHS or Q6hrs while NPO * Goal Range: Low 120 mg/dL - High 180 mg/dL * Nutritional / Prandial insulin per carb ratio of 1 unit per 5 grams CHO consumed * Please note that the plan above was derived based on current level of insulin resistance and hospital stress. These recommendations are appropriate for inpatient admission only. Plan of care upon discharge will need to be reassessed to avoid potential outpatient hypo/hyperglycemia. Thank you.
[2018-12-26] MEDS ORDERED: CHECK SCOPOLAMINE PATCH PLACEMENT SCH (16:00)
[2018-12-26] MEDS ORDERED: INSULIN GLARGINE SOLOSTAR 100 UNITS/ML 3 ML PEN SQ SCH (17:00)
[2018-12-26] MEDS: INSULIN ASPART 100 UNITS/ML 3 ML PEN SC SCH ×3 (17:48→21:47)
[2018-12-26] MEDS: CEFAZOLIN 2000MG 2,000 MG/15 ML SYR IV SCH (17:53)
[2018-12-26] MEDS: OXYCODONE HCL IR 5 MG TAB (IMMEDIATE RELEASE) PO PRN (19:11)
[2018-12-26] MEDS: HYDROmorphone INJ 0.5 MG/0.5 ML SYR IV PRN (20:23)
[2018-12-26] MEDS: ASPIRIN 81 MG ECTAB PO SCH (20:27)
[2018-12-26] MEDS: LOSARTAN POTASSIUM 50 MG TAB PO SCH (20:27)
[2018-12-26] MEDS: VERAPAMIL HCL 240 MG TABCR PO SCH (20:27)
[2018-12-26] MEDS: MIRABEGRON ER 25 MG TAB PO SCH (20:28)
[2018-12-26] MEDS: SERTRALINE HCL 100 MG TABLET PO SCH (20:28)
[2018-12-26] MEDS: DOCUSATE SODIUM/SENNA 50/8.6MG TAB PO SCH (20:28)
[2018-12-26] MEDS: PREGABALIN 150 MG CAP PO SCH (20:29)
[2018-12-27] MEDS: HYDROmorphone INJ 0.5 MG/0.5 ML SYR IV PRN ×2 (00:26→07:46)
[2018-12-27] MEDS: CEFAZOLIN 2000MG 2,000 MG/15 ML SYR IV SCH (02:18)
[2018-12-27] MEDS: SODIUM CHLORIDE 0.9% 1000ML 1,000 ML IV SCH (04:11)
[2018-12-27] MEDS ORDERED: GLUCOSE 10 TABS/TUBE PO PRN (04:30)
[2018-12-27] MEDS ORDERED: GLUCOSE 40% GEL 15 GM TUBE PO PRN (04:30)
[2018-12-27] MEDS ORDERED: GLUCAGON FOR INJ 1 MG VIAL SQ PRN (04:30)
[2018-12-27] MEDS ORDERED: DEXTROSE 50% 50 ML SYRINGE IV PRN (04:30)
[2018-12-27] MEDS ORDERED: CARBOHYDRATES FOR HYPOGLYCEMIA PO PRN (04:30)
[2018-12-27 05:50] LABS: Hematocrit (blood only) 30.7 % (37-47); Hemoglobin 10.3 g/dL (12.0-16.0); Immature Granulocytes # (auto) 0.03 K/uL (0.00-0.02); Immature Granulocytes % (auto) 0.3 %; Lymphocytes # (auto) 0.86 K/uL (1.2-3.4); Lymphocytes % (auto) 7.4 %; Mean Corpuscular Hemoglobin 29.4 pg (25-34); Mean Corpuscular Hgb Conc 33.6 g/dL (32-36); Mean Corpuscular Volume 87.7 fL (80-100); Monocytes # (auto) 0.77 K/uL (0.11-0.59); Monocytes % (auto) 6.6 %; Neutrophils # (auto) 10.02 K/uL (1.4-6.5); Neutrophils % (auto) 85.7 %; Platelet Count 170 K/uL (130-400); RDW Coefficient of Variation 14.6 % (11.5-14.5); RDW Standard Deviation 46.5 fL (36.4-46.3); White Blood Count 11.68 K/uL (4.8-10.8)
[2018-12-27] MEDS: OXYCODONE HCL IR 5 MG TAB (IMMEDIATE RELEASE) PO PRN ×5 (06:11→23:32)
[2018-12-27 06:21] LABS: BUN Creatinine Ratio 17.4 (10-20); Calcium 8.1 mg/dl (8.5-10.1); Creatinine Clr Calc Pharmacy 73.1 ml/min; Est GFR (African American) 60.2; Est GFR (Non-African American) 51.9; Potassium 5.4 mmol/L (3.5-5.1)
--- NOTE | 2018-12-27 07:30 | Anesthesiology Progress Note ---
Date of Service December 27, 2018 Anesthesia Post Procedure Vital Signs Vital Signs: Temp Pulse Pulse Resp BP Pulse Ox 12/27/18 07:17 36.9 C 87 18 117/69 94 12/27/18 04:00 36.9 C 88 16 125/69 94 12/26/18 23:30 36.8 C 90 16 112/70 96 12/26/18 19:24 36.7 C 84 18 117/75 94 12/26/18 16:56 36.5 C 78 18 131/73 96 12/26/18 16:01 36.5 C 75 18 135/67 97 12/26/18 15:03 36.5 C 71 18 116/71 97 12/26/18 14:58 36.6 C 67 20 116/65 97 12/26/18 14:29 70 18 124/70 96 12/26/18 13:40 80 13 113/65 94 12/26/18 13:30 36.4 C L 81 16 126/60 94 12/26/18 13:20 85 18 135/59 L 100 12/26/18 13:10 87 18 155/67 H 99 12/26/18 13:00 37.6 C H 93 H 14 166/79 H 90 12/26/18 08:27 36.8 C 87 20 159/71 H 93 Pain Intensity Right Leg: Pain Intensity: 9 Left Leg: Pain Intensity: 8 Back: Pain Intensity: 10 Notes Mental Status: alert / awake / arousable and participated in evaluation Nausea / Vomiting: adequately controlled Pain: adequately controlled Airway Patency, RR, SpO2: stable & adequate BP & HR: stable & adequate Hydration State: stable & adequate
[2018-12-27] MEDS: VERAPAMIL HCL 240 MG TABCR PO SCH ×2 (08:36→20:08)
[2018-12-27] MEDS: MULTIVITAMIN TAB PO SCH (08:36)
[2018-12-27] MEDS: PREGABALIN 150 MG CAP PO SCH ×2 (08:37→21:38)
[2018-12-27] MEDS: LOSARTAN POTASSIUM 50 MG TAB PO SCH ×2 (08:37→20:11)
[2018-12-27] MEDS: INSULIN ASPART 100 UNITS/ML 3 ML PEN SC SCH ×4 (08:46→21:42)
[2018-12-27] MEDS ORDERED: INSULIN GLARGINE SOLOSTAR 100 UNITS/ML 3 ML PEN SQ ONE (09:00)
--- NOTE | 2018-12-27 14:52 | Pharmacy Report ---
Pharmacy Glycemic Short Note 2 - Date of Service December 27, 2018 - Glycemic Short BSG Results (Last 24 hours): 12/26/18 12/26/18 12/26/18 15:16 16:25 17:23 Glucose POC Glucose 252 H 221 H 189 H 12/26/18 12/26/18 12/26/18 18:26 19:22 21:22 Glucose POC Glucose 184 H 163 H 121 H 12/26/18 12/26/18 12/27/18 22:19 23:27 01:54 Glucose POC Glucose 111 H 91 118 H 12/27/18 12/27/18 12/27/18 04:00 05:34 07:53 Glucose 163 H POC Glucose 149 H 171 H 12/27/18 12:04 Glucose POC Glucose 130 H OUTPATIENT ANTIDIABETIC REGIMEN: * Lantus 25 units BID * Novolog 5 units AC * Metformin 1000 mg PO BID ASSESSMENT: * Patient POD #1 lumbar fusion * Patient transitioned off of drip yesterday evening with SC basal/bolus insulin * Patient received approximately 105 units of insulin yesterday (including the insulin gtt) * BGs ranged from 91-252 over the past 24 hours PLAN FOR INPATIENT GLYCEMIC CONTROL: * Hold outpatient oral diabetes medications * Basal insulin * Lantus 25 units SQ BID * Bolus insulin * NovoLog per scale ACHS or Q6hrs while NPO * Goal Range: Low 110 mg/dL - High 140 mg/dL * Correction Factor: 20 mg/dL/unit * Nutritional / Prandial insulin per carb ratio of 1 unit per 8 grams CHO consumed * CF and CR in between weight/based stress of 1 and 2 due to outpatient insulin requirement of approximately 65 units (achieving reasonable glycemic control with HbA1c of 7.8% PLAN FOR DISCHARGE: * Will plan to transition to home regimen * May consider addition of home metformin tomorrow if patient remains stable
[2018-12-27] MEDS: DOCUSATE SODIUM/SENNA 50/8.6MG TAB PO SCH (20:08)
[2018-12-27] MEDS: SERTRALINE HCL 100 MG TABLET PO SCH (20:10)
[2018-12-27] MEDS: ASPIRIN 81 MG ECTAB PO SCH (20:11)
[2018-12-27] MEDS: MIRABEGRON ER 25 MG TAB PO SCH (20:12)
[2018-12-27] MEDS ORDERED: Nursing to Pharmacy Communication ONE (21:06)
[2018-12-27] MEDS: INSULIN GLARGINE SOLOSTAR 100 UNITS/ML 3 ML PEN SQ SCH (21:41)
[2018-12-28] MEDS: INSULIN GLARGINE SOLOSTAR 100 UNITS/ML 3 ML PEN SQ SCH ×2 (08:07→22:30)
[2018-12-28] MEDS: INSULIN ASPART 100 UNITS/ML 3 ML PEN SC SCH ×4 (08:08→22:31)
[2018-12-28] MEDS: MULTIVITAMIN TAB PO SCH (08:17)
[2018-12-28] MEDS: LOSARTAN POTASSIUM 50 MG TAB PO SCH (08:17)
[2018-12-28] MEDS: VERAPAMIL HCL 240 MG TABCR PO SCH ×2 (08:17→22:27)
--- NOTE | 2018-12-28 09:39 | Progress Note ---
DATE: 12/28/2018 She is a little bit confused this morning, taking p.o. Did have difficulty voiding, but no chest pain, shortness of breath or neurological issues. O2 sat 92, temperature 36, blood pressure is stable. ASSESSMENT: Status post lumbar spine fusion, difficulty voiding, morbid obesity with a body mass index of 50 and a drop in her oxygen saturation. I have ordered a series of laboratory data, chest x-ray. We will get medicine involved. I do not think this will be any serious medical issue; hopefully, get turned around. She needs to tremendously work on her obesity.
--- NOTE | 2018-12-28 09:47 | XRay Report ---
XR chest 2V routine HISTORY: low oxygen sat COMPARISON: Chest 03/04/2018. FINDINGS: The heart remains enlarged. No pneumothorax. No pleural effusions. Mild diffuse interstitia l and vascular thickening consistent with mild congestive change. This has slightly progressed. There are low lung volumes. No new focal lung consolidations to suggest pneumonia. IMPRESSION: Cardiomegaly with mild developing congestive change. Electronically signed by: Delonte Bean M.D. 12/28/2018 9:46 AM
[2018-12-28] MEDS: LACTATED RINGER'S 1,000 ML IV SCH ×2 (10:15→22:55)
[2018-12-28] MEDS: PREGABALIN 150 MG CAP PO SCH (10:16)
[2018-12-28 10:26] LABS: Base Excess ABG -1.2 mEq/L (-9-1.8); HCO3 ABG 26 mmol/L (19-24); Oxygen Saturation ABG 90.8 % (90-95); PCO2 ABG 53 mmHg (35-46); PO2 ABG 68 mm/Hg (80-95)
[2018-12-28 10:27] LABS: Allen Test Pos (Pos)
[2018-12-28 10:43] LABS: BUN Creatinine Ratio 15.2 (10-20); Creatinine Clr Calc Pharmacy 28.6 ml/min; Est GFR (African American) 19.4; Est GFR (Non-African American) 16.7; Potassium 4.2 mmol/L (3.5-5.1)
[2018-12-28 10:45] LABS: Basophils # (auto) 0.02 K/uL (0-0.2); Basophils % (auto) 0.3 %; Eosinophils # (auto) 0.05 K/uL (0-0.5); Eosinophils % (auto) 0.6 %; Hematocrit (blood only) 27.5 % (37-47); Hemoglobin 8.8 g/dL (12.0-16.0); Immature Granulocytes # (auto) 0.02 K/uL (0.00-0.02); Immature Granulocytes % (auto) 0.3 %; Lymphocytes # (auto) 2.04 K/uL (1.2-3.4); Lymphocytes % (auto) 25.5 %; Mean Corpuscular Hemoglobin 28.5 pg (25-34); Mean Platelet Volume 10.4 fL (7.4-10.4); Monocytes # (auto) 0.97 K/uL (0.11-0.59); Monocytes % (auto) 12.1 %; Neutrophils # (auto) 4.89 K/uL (1.4-6.5); Neutrophils % (auto) 61.2 %; Platelet Count 174 K/uL (130-400); RDW Coefficient of Variation 15.4 % (11.5-14.5); RDW Standard Deviation 49.8 fL (36.4-46.3); Red Blood Count 3.09 M/uL (4.2-5.4); White Blood Count 7.99 K/uL (4.8-10.8)
--- NOTE | 2018-12-28 11:12 | Pharmacy Report ---
Pharmacy Glycemic Short Note 2 - Date of Service December 28, 2018 - Glycemic Short BSG Results (Last 24 hours): 12/27/18 12/27/18 12/27/18 12:04 17:03 21:36 POC Glucose 130 H 145 H 134 H 12/28/18 12/28/18 04:44 06:30 POC Glucose 149 H 144 H OUTPATIENT ANTIDIABETIC REGIMEN: * Lantus 25 units BID * Novolog 5 units AC * Metformin 1000 mg PO BID ASSESSMENT: 12/28/18: * POD #2 lumbar fusion * BSGs ranged from 118-149 over past 24 hours * Patient received 72 units of insulin yesterday (50 units of basal and 22 units of correctional/prandial) - similar to home regimen * Patient has not made any urine since junior catheter removal yesterday AM * Significant increase in SCr noted today (2.8 mg/dL up from 1.10 mg/dL yesterday) 12/27/18: * Patient POD #1 lumbar fusion * Patient transitioned off of drip yesterday evening with SC basal/bolus insulin * Patient received approximately 105 units of insulin yesterday (including the insulin gtt) * BGs ranged from 91-252 over the past 24 hours PLAN FOR INPATIENT GLYCEMIC CONTROL: * Hold outpatient oral diabetes medications * Basal insulin - change to Lantus scale due to new-onset WESLEY * Lantus 20 units for BSG less than 130 mg/dL * Lantus 25 units for BSG 130 mg/dL or above * Bolus insulin: Continue current parameters * NovoLog per scale ACHS or Q6hrs while NPO * Goal Range: Low 110 mg/dL - High 140 mg/dL * Correction Factor: 20 mg/dL/unit * Nutritional / Prandial insulin per carb ratio of 1 unit per 8 grams CHO consumed * CF and CR in between weight/based stress of 1 and 2 due to outpatient insulin requirement of approximately 65 units (achieving reasonable glycemic control with HbA1c of 7.8% * Will follow BSGs as well as renal function closely and will adjust insulin accordingly PLAN FOR DISCHARGE: * Will hold off on initiating home metformin at this time due to WESLEY * Will reassess once WESLEY resolves
[2018-12-28] MEDS ORDERED: LACTATED RINGER'S 1,000 ML IV ONE (13:18)
--- NOTE | 2018-12-28 18:38 | Hospitalist Progress Note ---
Date of Service December 28, 2018 Assessment & Plan (1) Altered mental status: Seems to be multifactorial predominantly metabolic encephalopathy driven by her hypercapnia, acute renal failure, and probably to a lesser degree hypoxia. (2) Acute respiratory failure with hypoxia and hypercarbia: I suspect this is both from her sleep apnea, as well as sedating effects of narcotic pain medicines. Because she is awake and alert and able to breathe effectively we can hold off on any reversal agents like Narcan, with a low threshold to give if she were to worsen. At first the plan was to allow her to wake up and allow the narcotics to wear off and see if her mental status improved, on revisit she was the same, therefore we will utilize BiPAP to try to enhance ventilation for a little while. Repeat ABG this evening, ongoing serial clinical assessments. The hypoxia seems to predominantly be due to her poor ventilation, and a try to have her use incentive spirometry and she did so poorly, I suspect there is atelectasis at play. Her chest x-ray was suggestive of pulmonary edema, but her exam is not, and as below noted for her renal failure we have been giving her significant amounts of fluids and her breathing has not worsened throughout the day. Obviously we will watch this closely given her diastolic CHF history, but her hypoxia all certainly seems to be more atelectasis/hypoventilation, and I question if there is a degree of chronicity. (3) Acute renal failure: Almost certainly all volume loss related. Her surgery had an estimated 400 500 mL's of blood loss, and certainly it was possible that more fluid was lost with it. She has been initiated on LR, will give her a bolus, as above noted watch her respiratory status closely. Follow serial basic metabolic panels, follow urine output. Anticipate improvement, although there is a small chance of ATN in this kind of situation. If this were the case though, I discussed with patient and family that more than likely it would simply be a longer course of treatment, not necessarily any true lasting insults to her renal function. (4) Anemia: Acute blood loss related to surgery. Continue to follow, no indications for transfusion at this time (5) Diastolic congestive heart failure: See above discussion, but does appear to be clinically compensated in spite of chest x-ray. Serial exams, serial clinical follow-up, IV fluids for renal failure carefully, but it appears that with this being compensated the benefit of the fluid certainly outweighs the risk. (6) DM2 (diabetes mellitus, type 2): Sugars been reasonable, continue insulin management (7) Hypertension: Hold blood pressure medicines that have an impact on renal function, otherwise follow. (8) DVT prophylaxis: Per orthopedics Subjective Asked to see in consult in regards to confusion. Chart reviewed, patient seen and examined. She denies any acute complaints, her friend and daughter who are at the bedside note that she is not acting like herself. Nursing also notes this noting that she is generally more somnolent and not talking sensibly all the time, and nursing also notes that she has made little to no urine overnight or today. She herself denies any pain other than back pain, no chest pain no shortness of breath, actually is able to make some sarcastic jokes that seem to be relatively accurate to the situation, while at the same time not always being able to answer questions clearly. Essentially she denies acute complaints other than back pain. On revisit a few hours later she is essentially the same. Review of Systems Review of Systems: All systems reviewed & are unremarkable except as noted in HPI & below Physical Exam Physical Exam: General she is awake alert oriented but a little bit off and her responses sometimes and with a little bit difficult to describe, but she seems a bit slow to respond and sometimes a little bit off with her answers. At the same time she is able to as above noted make sarcastic jokes that seems surprisingly accurate and is oriented to her situation. HEENT normocephalic atraumatic mucous membranes moist. Breathing unlabored no accessory muscle use, no rales rhonchi or wheezes good effort, lungs overall clear, may be somewhat diminished air entry. Cardio regular no rubs murmurs or gallops. Abdomen soft nondistended nontender no masses organomegaly. Extremities show no cyanosis or clubbing may be trace bilateral equal lower extremity edema without any calf tenderness. No erythema no cords. Neuro shows cranial nerves II through XII be grossly intact gross motor and sensory intact, she shows no focal neuro deficits. Mental status as above. Technically oriented, although somewhat off and her responses at times. Skin shows no rashes, no pallor, no icterus. Results & Data Vital Signs (Past 12 Hours) Vital Signs Temp Pulse Resp BP Pulse Ox 12/28/18 15:02 98.4 F 89 16 109/66 93 12/28/18 11:35 80 L 12/28/18 08:16 90 111/66 PG Care Time/CCT Total # of Minutes Spent Total Time Spent with Patient: Total time spent is greater than 50% in coordination of care (as documented) at patient's floor/unit and/or counseling patient:
[2018-12-28 22:12] LABS: HCO3 ABG 25 mmol/L (19-24); Oxygen Saturation ABG 79.5 % (90-95); PCO2 ABG 49 mmHg (35-46); PO2 ABG 48 mm/Hg (80-95)
[2018-12-28 22:13] LABS: Allen Test POS (Pos)
[2018-12-28 22:14] LABS: pH ABG 7.33 (7.35-7.45)
[2018-12-28] MEDS: ASPIRIN 81 MG ECTAB PO SCH (22:28)
[2018-12-28] MEDS: DOCUSATE SODIUM/SENNA 50/8.6MG TAB PO SCH (22:28)
[2018-12-28] MEDS: MIRABEGRON ER 25 MG TAB PO SCH (22:29)
[2018-12-28] MEDS: SERTRALINE HCL 100 MG TABLET PO SCH (22:29)
[2018-12-28] MEDS: PREGABALIN 75 MG CAP PO SCH (22:33)
[2018-12-29] MEDS: OXYCODONE HCL IR 5 MG TAB (IMMEDIATE RELEASE) PO PRN (00:21)
[2018-12-29 07:08] LABS: Base Excess ABG -2.1 mEq/L (-9-1.8); HCO3 ABG 24 mmol/L (19-24); PCO2 ABG 49 mmHg (35-46); PO2 ABG 60 mm/Hg (80-95); pH ABG 7.31 (7.35-7.45)
[2018-12-29 07:08] LABS: Basophils # (auto) 0.01 K/uL (0-0.2); Basophils % (auto) 0.1 %; Eosinophils # (auto) 0.04 K/uL (0-0.5); Eosinophils % (auto) 0.5 %; Hematocrit (blood only) 25.6 % (37-47); Hemoglobin 8.5 g/dL (12.0-16.0); Immature Granulocytes # (auto) 0.02 K/uL (0.00-0.02); Immature Granulocytes % (auto) 0.3 %; Lymphocytes % (auto) 17.5 %; Mean Corpuscular Hemoglobin 29.3 pg (25-34); Mean Corpuscular Hgb Conc 33.2 g/dL (32-36); Mean Corpuscular Volume 88.3 fL (80-100); Mean Platelet Volume 10.4 fL (7.4-10.4); Monocytes # (auto) 0.84 K/uL (0.11-0.59); Monocytes % (auto) 11.3 %; Neutrophils # (auto) 5.22 K/uL (1.4-6.5); Neutrophils % (auto) 70.3 %; Platelet Count 148 K/uL (130-400); RDW Coefficient of Variation 14.9 % (11.5-14.5); RDW Standard Deviation 48.4 fL (36.4-46.3); White Blood Count 7.43 K/uL (4.8-10.8)
[2018-12-29 07:11] LABS: Allen Test POS (Pos)
[2018-12-29 07:35] LABS: BUN Creatinine Ratio 20.4 (10-20); Calcium 8.4 mg/dl (8.5-10.1); Creatinine Clr Calc Pharmacy 35.3 ml/min; Est GFR (African American) 24.9; Est GFR (Non-African American) 21.5; Potassium 4.2 mmol/L (3.5-5.1)
[2018-12-29] MEDS: PREGABALIN 75 MG CAP PO SCH ×2 (08:45→20:59)
[2018-12-29] MEDS: MULTIVITAMIN TAB PO SCH (08:45)
[2018-12-29] MEDS: VERAPAMIL HCL 240 MG TABCR PO SCH ×2 (08:46→20:59)
[2018-12-29] MEDS: INSULIN GLARGINE SOLOSTAR 100 UNITS/ML 3 ML PEN SQ SCH ×2 (08:49→21:00)
[2018-12-29] MEDS: INSULIN ASPART 100 UNITS/ML 3 ML PEN SC SCH ×4 (08:53→20:44)
--- NOTE | 2018-12-29 11:16 | Pharmacy Report ---
Pharmacy Glycemic Short Note 2 - Date of Service December 29, 2018 - Glycemic Short BSG Results (Last 24 hours): 12/28/18 12/28/18 12/28/18 12:04 17:36 20:47 Glucose POC Glucose 127 H 163 H 109 H 12/29/18 12/29/18 06:47 08:21 Glucose 156 H POC Glucose 167 H OUTPATIENT ANTIDIABETIC REGIMEN: * Lantus 25 units BID * Novolog 5 units AC * Metformin 1000 mg PO BID ASSESSMENT: 12/29/18: * POD #3 lumbar fusion * BSGs ranging 109-167 over past 24 hours (BSGs well-controlled) * Received 60 units of insulin yesterday (45 of which were basal) * Improvement in SCr noted today (2.81 -> 2.28) 12/28/18: * POD #2 lumbar fusion * BSGs ranging 118-149 over past 24 hours * Patient received 72 units of insulin yesterday (50 units of basal and 22 units of correctional/prandial) - similar to home regimen * Patient has not made any urine since junior catheter removal yesterday AM * Significant increase in SCr noted today (2.8 mg/dL up from 1.10 mg/dL yesterday) 12/27/18: * Patient POD #1 lumbar fusion * Patient transitioned off of drip yesterday evening with SC basal/bolus insulin * Patient received approximately 105 units of insulin yesterday (including the insulin gtt) * BGs ranged from 91-252 over the past 24 hours PLAN FOR INPATIENT GLYCEMIC CONTROL: * Hold outpatient oral diabetes medications * Basal insulin - continue Lantus scale due to new-onset WESLEY * Lantus 20 units for BSG less than 130 mg/dL * Lantus 25 units for BSG 130 mg/dL or above * Bolus insulin: Continue current parameters * NovoLog per scale ACHS or Q6hrs while NPO * Goal Range: Low 110 mg/dL - High 140 mg/dL * Correction Factor: 20 mg/dL/unit * Nutritional / Prandial insulin per carb ratio of 1 unit per 8 grams CHO consumed * CF and CR in between weight/based stress of 1 and 2 due to outpatient insulin requirement of approximately 65 units (achieving reasonable glycemic control with HbA1c of 7.8% * Will follow BSGs as well as renal function and will adjust insulin accordingly PLAN FOR DISCHARGE: * Will hold off on initiating home metformin at this time due to WESLEY * Will reassess once WESLEY resolves
[2018-12-29] MEDS: ALBUTEROL HFA 8 GM INHALER INH PRN ×2 (11:32→16:14)
[2018-12-29] MEDS: LACTATED RINGER'S 1,000 ML IV SCH ×2 (11:33→23:48)
--- NOTE | 2018-12-29 19:53 | Hospitalist Progress Note ---
Date of Service December 29, 2018 Assessment & Plan (1) Altered mental status: Seems to be multifactorial predominantly metabolic encephalopathy driven by her hypercapnia, acute renal failure, and probably to a lesser degree hypoxia. Improving (2) Acute respiratory failure with hypoxia and hypercarbia: With ongoing follow-up, as well as ongoing discussions with family, it is very likely that she has obesity hypoventilation, and normally at home likely just barely gets by, but the added insult of being weak with postop recovery, as well as a few nights ago the influence of the narcotics, seems to have tipped her over the edge. Fortunately she is showing slow improvement, continue BiPAP whenever she is asleep and supportive care when she is awake. She is doing well enough she does not appear to need BiPAP while awake right now. We discussed this could be a possibility. We discussed a need for better respiratory management at home, and we will work towards hopefully a trilogy her home BiPAP device or if this is not able to be set up, at least a repeat sleep study. Continue supportive care. Continue vigilance and close follow-up. Discussed a need for weight loss as the definitive treatment. Short smoking history may be 10 to 20 pack years at the most, has never had PFTs, suspect most of her breathing is OHS related, definitely should have PFTs as an outpatient (3) Acute renal failure: Almost certainly all volume loss related. Improving. Urinary retention likely related to physiologic stress. Continue De Paz drainage and follow closely. No signs or symptoms of infection, family requests UA to be sent which is reasonable given the circumstances. (4) Anemia: Acute blood loss related to surgery. Appears to have stabilized. Con tinue to follow, no indications for transfusion. (5) Diastolic congestive heart failure: Despite chest x-ray yesterday, I suspect the chest x-ray showing her consistent with pulmonary edema was really more due to underpenetration due to her body habitus, as we have been giving her IV fluids to improve her renal failure and her breathing has been stable or may be slightly improving. She has no rales on exam. (6) DM2 (diabetes mellitus, type 2): Sugars adequate control. Continue current. (7) Hypertension: Hold blood pressure medicines that have an impact on renal function, otherwise follow. Readings have been good. (8) DVT prophylaxis: Per orthopedics (9) Eustachian tube dysfunction: Her ear exam is normal, I suspect her ear pain is due to eustachian tube dysfunction. Taught her gentle OMT. Subjective Doing better. Still not back to baseline but less confused. Whenever I see her again in the evening her friend notes that she is continuing to look better. Patient herself does not have any complaints other than back pain this morning. She has a little bit of right ear pain this evening she would like me to look at . Denies chest pain shortness of breath. Does seem to note that she feels a little bit off, although family seems to notice it more. No other HPI Review of Systems Review of Systems: All systems reviewed & are unremarkable except as noted in HPI & below Physical Exam Physical Exam: In general she is awake alert oriented x3 pleasant no distress. HEENT normal cephalic atraumatic mucous membranes are moist. Right ear without any focal abnormalities canal is clear TM is normal. Cardio is regular without rubs murmurs gallops. Lungs clear to auscultation bilaterally no rales rhonchi or wheezes somewhat diminished air entry good effort. Skin shows no rashes no pallor or icterus. No focal neurologic deficits. Abdomen is soft nondistended nontender. Results & Data Vital Signs (Past 12 Hours) Vital Signs Temp Pulse Resp BP Pulse Ox 12/29/18 15:27 98.4 F 84 16 106/63 90 12/29/18 15:20 90 12/29/18 13:48 93 12/29/18 11:32 90 12/29/18 10:05 90 12/29/18 08:00 98.4 F 81 20 91/54 L 90 PG Care Time/CCT Total # of Minutes Spent Total Time Spent with Patient: Total time spent is greater than 50% in coordination of care (as documented) at patient's floor/unit and/or counseling patient:
[2018-12-29] MEDS: SERTRALINE HCL 100 MG TABLET PO SCH (20:59)
[2018-12-29] MEDS: ASPIRIN 81 MG ECTAB PO SCH (20:59)
[2018-12-29] MEDS: DOCUSATE SODIUM/SENNA 50/8.6MG TAB PO SCH (21:02)
[2018-12-29 21:29] LABS: Appearance Urine Clear (Clear); Bilirubin Urine Negative (Negative); Blood Urine Negative (Negative); Color Urine Yellow; Glucose Urine UA Negative (Negative); Ketones Urine Negative (Negative); Leukocyte Esterase Urine Negative (Negative); Nitrite Urine Negative (Negative); Protein Urine Negative (Negative); Specific Gravity Urine 1.018 (1.000-1.030); Urobilinogen Urine Negative (Negative)
[2018-12-30 06:01] LABS: Base Excess ABG -1.3 mEq/L (-9-1.8); Basophils # (auto) 0.01 K/uL (0-0.2); Basophils % (auto) 0.1 %; Eosinophils # (auto) 0.04 K/uL (0-0.5); Eosinophils % (auto) 0.6 %; HCO3 ABG 25 mmol/L (19-24); Hematocrit (blood only) 25.7 % (37-47); Hemoglobin 8.4 g/dL (12.0-16.0); Immature Granulocytes # (auto) 0.01 K/uL (0.00-0.02); Immature Granulocytes % (auto) 0.1 %; Lymphocytes # (auto) 1.09 K/uL (1.2-3.4); Lymphocytes % (auto) 15.1 %; Mean Corpuscular Hemoglobin 28.5 pg (25-34); Mean Corpuscular Hgb Conc 32.7 g/dL (32-36); Mean Corpuscular Volume 87.1 fL (80-100); Mean Platelet Volume 10.2 fL (7.4-10.4); Monocytes # (auto) 0.67 K/uL (0.11-0.59); Monocytes % (auto) 9.3 %; Neutrophils # (auto) 5.41 K/uL (1.4-6.5); Neutrophils % (auto) 74.8 %; Oxygen Saturation ABG 80.8 % (90-95); PCO2 ABG 48 mmHg (35-46); PO2 ABG 50 mm/Hg (80-95); Platelet Count 166 K/uL (130-400); RDW Coefficient of Variation 14.5 % (11.5-14.5); RDW Standard Deviation 46.2 fL (36.4-46.3); Red Blood Count 2.95 M/uL (4.2-5.4); White Blood Count 7.23 K/uL (4.8-10.8); pH ABG 7.33 (7.35-7.45)
[2018-12-30 06:03] LABS: Allen Test Pos (Pos)
[2018-12-30 06:41] LABS: BUN Creatinine Ratio 26.6 (10-20); Calcium 8.8 mg/dl (8.5-10.1); Creatinine Clr Calc Pharmacy 55.5 ml/min; Est GFR (African American) 43.1; Est GFR (Non-African American) 37.2
[2018-12-30] MEDS: VERAPAMIL HCL 240 MG TABCR PO SCH ×2 (08:50→20:39)
[2018-12-30] MEDS: MULTIVITAMIN TAB PO SCH (08:51)
[2018-12-30] MEDS: INSULIN ASPART 100 UNITS/ML 3 ML PEN SC SCH ×4 (08:51→21:50)
[2018-12-30] MEDS: INSULIN GLARGINE SOLOSTAR 100 UNITS/ML 3 ML PEN SQ SCH ×2 (08:52→21:51)
[2018-12-30] MEDS: PREGABALIN 75 MG CAP PO SCH ×2 (08:56→20:39)
--- NOTE | 2018-12-30 09:47 | Pharmacy Report ---
Pharmacy Glycemic Short Note 2 - Date of Service December 30, 2018 - Glycemic Short BSG Results (Last 24 hours): 12/29/18 12/29/18 12/29/18 11:56 17:10 20:35 Glucose POC Glucose 172 H 168 H 137 H 12/30/18 12/30/18 05:46 08:13 Glucose 150 H POC Glucose 179 H OUTPATIENT ANTIDIABETIC REGIMEN: * Lantus 25 units BID * Novolog 5 units AC * Metformin 1000 mg PO BID ASSESSMENT: 12/30/18: * POD #4 lumbar fusion * BSGs ranging 137-179 over past 24 hours * Received 64 units of insulin yesterday (50 of which were basal) * Further improvement in SCr noted today (2.28 -> 1.45) 12/29/18: * POD #3 lumbar fusion * BSGs ranging 109-167 over past 24 hours (BSGs well-controlled) * Received 60 units of insulin yesterday (45 of which were basal) * Improvement in SCr noted today (2.81 -> 2.28) 12/28/18: * POD #2 lumbar fusion * BSGs ranging 118-149 over past 24 hours * Patient received 72 units of insulin yesterday (50 units of basal and 22 units of correctional/prandial) - similar to home regimen * Patient has not made any urine since junior catheter removal yesterday AM * Significant increase in SCr noted today (2.8 mg/dL up from 1.10 mg/dL yesterday) 12/27/18: * Patient POD #1 lumbar fusion * Patient transitioned off of drip yesterday evening with SC basal/bolus insulin * Patient received approximately 105 units of insulin yesterday (including the insulin gtt) * BGs ranged from 91-252 over the past 24 hours PLAN FOR INPATIENT GLYCEMIC CONTROL: * Hold outpatient oral diabetes medications * Basal insulin - continue Lantus scale for now. May need to increase based on resolving WESLEY. * Lantus 20 units for BSG less than 130 mg/dL * Lantus 25 units for BSG 130 mg/dL or above * Bolus insulin: Continue current parameters * NovoLog per scale ACHS or Q6hrs while NPO * Goal Range: Low 110 mg/dL - High 140 mg/dL * Correction Factor: 20 mg/dL/unit * Nutritional / Prandial insulin per carb ratio of 1 unit per 8 grams CHO consumed * CF and CR in between weight/based stress of 1 and 2 due to outpatient insulin requirement of approximately 65 units (achieving reasonable glycemic control with HbA1c of 7.8% * Will follow BSGs as well as renal function and will adjust insulin accordingly PLAN FOR DISCHARGE: * Will hold off on initiating home metformin at this time due to WESLEY * Consider re-initiation of metformin prior to discharge once WESLEY resolves fully
--- NOTE | 2018-12-30 10:46 | Progress Note ---
DATE: 12/30/2018 CHIEF COMPLAINT: Back and lower extremity difficulty. Alert, oriented, ambulatory, taking p.o. There is no confusion at this point in time. She has no shortness of breath. OBJECTIVE: Vital signs stable, 36.8 temperature, respirations 18, pulse 93. Laboratory work demonstrates a hemoglobin of 8.4, hematocrit 24.7. ASSESSMENT: Status post lumbar spine reconstructive surgery. PLAN: We will try to get her to [facility] today. An order has been place, think she is medically stable, we will keep in her De Paz catheter. She needs to ambulate and continue with her current medications.
[2018-12-30] MEDS: OXYCODONE HCL IR 5 MG TAB (IMMEDIATE RELEASE) PO PRN ×2 (11:53→20:38)
--- NOTE | 2018-12-30 17:04 | Hospitalist Progress Note ---
Date of Service December 30, 2018 Assessment & Plan (1) Altered mental status: Seems to be multifactorial predominantly metabolic encephalopathy driven by her hypercapnia, acute renal failure, and probably to a lesser degree hypoxia. Fortunately seems to have resolved. (2) Acute respiratory failure with hypoxia and hypercarbia: With ongoing follow-up, as well as ongoing discussions with family, it is very likely that she has obesity hypoventilation, and normally at home likely just barely gets by, but the added insult of being weak with postop recovery, as well as a few nights ago the influence of the narcotics, seems to have tipped her over the edge. Fortunately she is showing slow improvement, continue BiPAP whenever she is asleep and supportive care when she is awake. Is improving, stable to be off of BiPAP while awake. Technically even as of this morning still had a bit of a respiratory acidosis, but I wonder how much of it relates to sleep breathing mechanics while even on the BiPAP. Discussed with case management that I suspect she would benefit from something like a trilogy device, and definitely even when she is at rehab she will need BiPAP or trilogy and ongoing follow-up. Patient and I discussed that now that she is hopefully going to see improvement in pain, that that should hopefully affect improvement in mobility, and that hopefully some of the weight can start to come off, so that her breathing can improve. Would recommend PFTs as outpatient. (3) Acute renal failure: Almost certainly all volume loss related. Improving. Urinary retention likely related to physiologic stress. Can stop IV fluids, repeat BMP in a.m. (4) Anemia: Acute blood loss related to surgery. Appears to have stabilized. Continue to follow periodically, no indications for transfusion. (5) Diastolic congestive heart failure: I suspect the chest x-ray showing her consistent with pulmonary edema was really more due to underpenetration due to her body habitus, as we have been giving her IV fluids to improve her renal failure and her breathing has been stable or may be slightly improving. She has no rales on exam, and hypoxia is likely from hypoventilation and atelectasis. As above, and encouraged incentive spirometry. (6) DM2 (diabetes mellitus, type 2): Sugars show good control. Continue current management. (7) Hypertension: Hold blood ARB , otherwise follow. Readings have shown reasonable control (8) DVT prophylaxis: Per orthopedics (9) Eustachian tube dysfunction: See note from 12/29 Subjective Generally feeling better. Up and out of bed in the chair. No significant shortness of breath, although she still needs oxygen. Pain reasonable. Still needing De Paz cath in. No other new complaints. Updated extensively, she really did not have much more than a foggy recollection of the last several days, so I updated her on everything that I have been seeing and informing her family of. She expressed good understanding. Review of Systems Review of Systems: All systems reviewed & are unremarkable except as noted in HPI & below Physical Exam Physical Exam: General she is awake and alert pleasant no distress. HEENT normocephalic atraumatic mucous members moist. Lungs are markedly diminished throughout but no rales rhonchi or wheeze with good effort. She does incentive spirometry was much better proficiency, although still fairly poor tolerance, than before. Cardio is regular without rubs murmurs or gallops. No focal neuro deficits. Skin shows no rashes no pallor or icterus. Results & Data Vital Signs (Past 12 Hours) Vital Signs Temp Pulse Resp BP Pulse Ox 12/30/18 15:33 99.3 F 87 16 136/70 91 12/30/18 07:47 98.2 F 93 H 18 129/72 92 PG Care Time/CCT Total # of Minutes Spent Total Time Spent with Patient: Total time spent is greater than 50% in coordination of care (as documented) at patient's floor/unit and/or counseling patient:
[2018-12-30] MEDS: ASPIRIN 81 MG ECTAB PO SCH (20:39)
[2018-12-30] MEDS: SERTRALINE HCL 100 MG TABLET PO SCH (20:40)
[2018-12-30] MEDS: DOCUSATE SODIUM/SENNA 50/8.6MG TAB PO SCH (20:40)
[2018-12-31 06:45] LABS: Calcium 9.1 mg/dl (8.5-10.1); Est GFR (Non-African American) 49.2; Potassium 4.1 mmol/L (3.5-5.1)
[2018-12-31] MEDS: INSULIN ASPART 100 UNITS/ML 3 ML PEN SC SCH ×2 (09:35→12:40)
[2018-12-31] MEDS: INSULIN GLARGINE SOLOSTAR 100 UNITS/ML 3 ML PEN SQ SCH (09:35)
[2018-12-31] MEDS: VERAPAMIL HCL 240 MG TABCR PO SCH (09:40)
[2018-12-31] MEDS: MULTIVITAMIN TAB PO SCH (09:40)
[2018-12-31] MEDS: PREGABALIN 75 MG CAP PO SCH (09:40)
--- NOTE | 2018-12-31 12:34 | Family Medicine Progress Note ---
Date of Service December 31, 2018 Assessment & Plan (1) Acute respiratory failure with hypoxia and hypercarbia: Apolonia is a 68-year-old female with a past medical history of obesity, type 2 diabetes mellitus, hypertension, anxiety, diastolic CHF, and spinal stenosis who was admitted for and is now status post L4/L5 laminectomy and PLIF L5-S1. Medicine service was consulted for acute hypercarbic respiratory failure managed as below. Acute hypercarbic respiratory failure in the postop setting 2/2 obesity hypoventilation syndrome Patient has a BMI of 48.7 and requires CPAP nightly at home Suspect baseline obesity hypoventilation worsened due to operative stress and narcosis Greatly improved following BiPAP, although did not do as well with CPAP last night Continue BiPAP nightly and as needed/while napping during the day Recommend sleep study and trilogy machine on returning home. To be further evaluated by rehab/PCP Type 2 diabetes mellitus Continue insulin glargine 20-25 units per protocol Continue insulin aspart sliding scale 1 per 18 and ratio 1: 6 BSG AC/at bedtime Acute kidney injury, resolved Increased creatinine peaked at 2.81 from baseline approximately 1.0 Downtrending yesterday, now within normal limits at 1.15 Suspect prerenal in setting of acute bleed and fluid depletion/surgery Continue oral hydration, BMP daily Diastolic congestive heart failure Initial chest x-ray spacious for pulmonary edema but limited by under penetration due to body habitus Stable and doing well with IV fluid maintenance for WESLEY and no rales on exam. Acute anemia in the setting of surgery Acute drop from 12.6 preop, to 10.3, to 8.8. Stabilized at 8.5. No clinical signs of bleeding. CBC daily Hypertension Continue SNOW PLOW OPERATOR losartan 50 mg p.o. twice daily Continue verapamil to 40 mg twice daily Chronic pain Continue Lyrica 150 mg p.o. twice daily Depression Continue sertraline 200 mg every afternoon Disposition: Per primary team. Medically stable, will require eval for home BiPAP and recommend an additional follow-up CBC/BMP in 2-3 days. (2) Altered mental status: (3) Acute renal failure: (4) DVT prophylaxis: (5) Anemia: (6) Eustachian tube dysfunction: (7) Vitamin D deficiency: (8) DM2 (diabetes mellitus, type 2): (9) Diastolic congestive heart failure: (10) Lumbar radiculopathy: (11) Hypertension: (12) Obesity hypoventilation syndrome: Supervising Physician Co-Signing Physician Notes I personally examined the patient and verified all mauro points of history and exam, discussed case, and agree with decision making with Dr Callejas. Appears to be up to rehab. Daughter notes that other than a little bit of on again off again confusion she is mostly herself. We have an extensive discussion about current working diagnoses and follow-up. Vitals noted, in general she is in no distress. Breathing unlabored no accessory muscle use. No pallor. Obesity hypoventilationappears to need BiPAP or trilogy at all times once asleep or napping. Hopefully as she improves with mobility should be a lose some weight and that will help with her hypoventilation Hypoxiauncertain if it relates to obesity hypoventilation versus atelectasiscontinue oxygen for now, continue incentive spirometry and mobility. Follow clinically. Acute renal failureprerenalimproved. Stable for rehab. Ongoing close follow-up of her respiratory status, particularly as it relates to her sleep breathing mechanics Subjective All he is seen at bedside with her daughter today. She reports she feels tired, but much better than the previous 2 days. She reports she remembers being confused yesterday and the day before, but does not remember that well. She does not feel like her CPAP worked as well for her overnight as the BiPAP did previously. She continues to have 8/10 back pain worsened with movement, but feels "okay "at rest. She is not short of breath, is currently on 4 L of nasal cannula oxygen. She is not on nasal cannula oxygen during the day at home. She denies shortness of breath, difficulty breathing, chest pain, chest pressure, lightheadedness, dizziness, fever, chills, night sweats, abdominal pain, nausea, vomiting, diarrhea this morning. Denies numbness/tingling in distal extremities. Was not able to void last night and De Paz was replaced, De Paz to be removed by nursing staff this morning for trial of voiding. She has been up walking twice this morning. She is agreeable [facility] when medically stable. No other questions or concerns. Review of Systems Review of Systems: 10 point review of systems negative except as noted in HPI Physical Exam Physical Exam: General: A&Ox3. NAD. Cooperative. Obese. HEENT: Atraumatic, normocephalic. Pulm: Diminished, poor air movement globally but grossly CTAB A&P. -wheezes, - rales, -rhonchi. Symmetrical chest rise. No respiratory distress. On 4 L nasal cannula Cardiac: Heart sounds difficult to appreciate,, -mrg. Radial pulses intact and symmetrical. Abdominal: Obese. Nontender, nondistended, soft. BS present. Extremities: Warm, dry. Sensation intact bilaterally. Plantar flexion intact 5/5 bilaterally. Results & Data Vital Signs (Past 12 Hours) Vital Signs Temp Pulse Resp BP Pulse Ox 12/31/18 07:37 100 12/31/18 07:28 37.1 C 79 20 141/75 H 100 PG Care Time/CCT Total # of Minutes Spent Total Time Spent with Patient: Total time spent is greater than 50% in coordination of care (as documented) at patient's floor/unit and/or counseling patient: Resident Activity Tracking Resident Involvement: Resident Care Provided Care Provided: Adult Hospital Medicine
[2018-12-31] MEDS: OXYCODONE HCL IR 5 MG TAB (IMMEDIATE RELEASE) PO PRN (12:45)
--- NOTE | 2019-01-09 10:34 | Discharge Summary ---
Apolonia was admitted to my service for spinal stenosis and instability of lumbar spine. She had very rigorous spine surgery. Her postoperative care was complicated by her obesity, fatty liver disease, sleep apnea, and restrictive lung disease. She did have some confusion and I think all that is related to the above stated issues. She eventually got out of bed to chair, ambulating, and ____ discharged home in improved stable condition. Her wound was clean and dry. Vital signs stable, alert, oriented. No chest pain or shortness of breath. We will see her back in the office in 1 week. Instructions, precautions provided on the chart and from our office.
== END 2018-12-31 14:05 | DRG 459 ==
LOC: ASU 07:42 → 3E 12:55